=== PATIENT | male | born 1940 | race Caucasian/White ===

== ENCOUNTER → 2018-02-04 15:25 | Outpatient (REF) | payer MEDICARE, OTHER, SELFPAY | LOC: LAB 15:25 | PROVIDERS: PCP Family Medicine; Visit Provider Internal Medicine | DX: L08.9 Local infection of the skin and subcutaneous tissue, unspecified (principal) | CPT/HCPCS: 87070; 87075; 87186; 87205 ==

== ENCOUNTER → 2018-02-23 10:41 | Outpatient (CLI) | payer MEDICARE, OTHER, SELFPAY | PROVIDERS: PCP Family Medicine; Visit Provider Internal Medicine | DX: G90.09 Other idiopathic peripheral autonomic neuropathy (principal); L97.322 Non-pressure chronic ulcer of left ankle with fat layer exposed; B95.7 Other staphylococcus as the cause of diseases classified elsewhere | CPT/HCPCS: 11042 ==

== ENCOUNTER → 2018-03-08 14:41 | Outpatient (REF) | payer MEDICARE, OTHER, SELFPAY | LOC: LAB 14:41 | PROVIDERS: PCP Family Medicine; Visit Provider Internal Medicine | DX: L08.9 Local infection of the skin and subcutaneous tissue, unspecified (principal) | CPT/HCPCS: 87070; 87075; 87077; 87147; 87186; 87205 ==

== ENCOUNTER → 2018-03-08 15:43 | Outpatient (CLI) | payer MEDICARE, OTHER, SELFPAY | PROVIDERS: PCP Family Medicine; Visit Provider Internal Medicine | DX: L97.322 Non-pressure chronic ulcer of left ankle with fat layer exposed (principal); L03.116 Cellulitis of left lower limb | CPT/HCPCS: 11042 ==

== ENCOUNTER → 2018-03-16 10:38 | Outpatient (CLI) | payer MEDICARE, OTHER, SELFPAY ==
--- NOTE | 2018-03-16 | OV.WND_ITS ---
Progress Note Details Patient Name: Vin Avila Patient Number: [id number] PatientPatientDate: 03/16/2018 Clinician: Ceci Villarreal Clinician Cosigner: Enedina Porras Physician / Customs Investigator: Shankar Valdes SUBJECTIVE Chief Complaint This information was obtained from the patient Wound on left lateral ankle. Allergies codeine (Severity: Severe), Augmentin (Severity: Severe) HPI This information was obtained from the patient 03/16/18. Seen by Dr. Valdes. The patient does not report pain or significant drainage associated with the chronic left lateral malleolus non-pressure ulcer since is last visit and his wound culture grew an intermediately resistant coag negative Staph. He's taking doxycycline which is appropriate and applying topical gentamicin to which the Staph partially resistant. 03/08/18. Seen by Dr. Valdes. The patient returns today for review of this chronic left lateral malleolus non-pressure ulcer and due to concern about increased size in periulcer redness. The patient does not report pain at the site however nor increased drainage. 02/23/18. Seen by Dr. Valdes. The patient does not report pain or increased drainage associated with chronic left lateral malleolus non pressure ulcer since his last visit however his reports some malodor when changing the dressing yesterday. His most recent wound culture rate resistant coag-negative Staph and is not currently on antibiotics. 02/04/18. Seen by Dr. Valdes. The patient does not report increased pain or drainage associated with the left lateral malleolus ulcer since his last visit. 01/21/18. Seen by Dr. Valdes. The patient does not report increased pain or drainage associated with the ulcer and they're applying topical gentamicin to treat chronic wound infection as recommended. 12/28/17. Seen by Dr. Valdes. The patient was seen by Dr. May, vascular surgery , for the chronic left lateral malleolus nonpressure ulcer and associated PAD. It was felt that any intervention would likely be equivalent and so they decided to not pursue it at this time. The patient does not report increased pain or drainage associated with the ulcer and they're applying topical gentamicin to treat chronic wound infection as recommended. 12/18/17. Seen by Dr. Valdes. The patient and his report increased drainage associated with the chronic left lateral malleolus non-pressure ulcer since his last visit. He does not report pain at the site and he's also scheduled to see vascular surgery next Thursday to evaluate his left lower leg PAD that may be contributing to the refractory nature of the ulcer. 12/11/17. Seen by Dr. Valdes. The patient and his report increased drainage associated with the chronic left lateral malleolus non-pressure ulcer since his last visit. He does not report pain at the site and he's also scheduled to see vascular surgery on December 21 to evaluate his left lower leg PAD that may be contributing to the refractory nature of the ulcer. 11/27/17. Seen by Armin Milligan PA-C. The patient reports that he has an appointment with [facility] vascular clinic to address his PAD. He reports no increase in drainage from his left lateral malleolar ulcer. 11/13/17. Seen by Dr. Valdes. The patient does not report increased pain or drainage associated with her chronic left lateral malleolus nonpressure ulcer since his last visit. 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 Of note, his study from 2016 showed 3 vessel runoff bilaterally. He has a history of chronic osteomyelitis at this ulcer site and was seen by Dr. Carol Oreilly, orthopedic foot gatherer, for consideration of deep debridement but was referred for the repeat Doppler prior to considering surgery. 11/06/17. Seen by Armin Milligan PA-C. The patient reports that he has his arterial doppler scheduled in [place] for next week. He reports no increase in drainage from his left lateral ulcer. 10/29/17. Seen by Armin Milligan PA-C. The patient reports no increase in drainage from his left lateral non-pressure ulcer. He has seen Dr. Marx but has not yet obtained his arterial doppler which she has ordered. 10/22/17. Seen by Dr. Valdes. The patient doesn't report pain or significant drainage associated with chronic left lateral malleolus nonpressure ulcers since last visit. He was seen by Dr. Marx who felt that prior to considering any orthopedic intervention that further vascular workup is required noting he had an MRA in September 2016 that showed a right sided moderate internal iliac stenosis however three-vessel runoff to both lower extremities.He has also completed his course of Zyvox, noting his history of refractory chronic osteomyelitis of the malleolus and recent ulcer deterioration, that was started after his last visit and does not report ever side effects. 10/15/17. Seen by Dr. Valdes. The patient does not report increased pain or drainage associated with the chronic left lateral malleolus nonpressure ulcer since his last visit. His wound culture from last visit grew only diphtheroids. He has an appointment to see Dr. Oreilly, orthopedic foot gatherer, next afternoon for a second opinion regarding options to heal this very refractory ulcer noting its prior history of underlying chronic osteomyelitis. 10/07/17. Seen by Dr. Valdes. The patient returns from his visit to [place] and does not report significant drainage nor pain associated with the chronic left lateral malleolus nonpressure ulcer since is last visit. He completed a course of Zyvox that was started prior to his trip and was treating cellulitis associated with the ulcer. Of note, this ulcer's remained very refractory and has been treated for underlying chronic osteomyelitis in 2017 with extended courses of antibiotics, hyperbaric oxygen therapy, and negative pressure wound therapy. 09/14/17. Seen by Dr. Valdes. The patient does not report pain associated with the chronic left lateral malleolus nonpressure ulcers since his last visit. His however feels that there is increased. His however is concerned that there is increased periulcer erythema and warmth and the patient is not currently on antibiotics. 09/08/17. Seen by Armin Milligan PA-C. The patient reports no increase in drainage from his chronic left ankle ulcer. He also wishes to discuss his chronic toenail infections, which have been present form many years and have been resistant to all forms of treatment. He is concerned the chronic nail infections could be seeding infection to his chronic ulcer. 08/31/17. Seen by Armin Milligan PA-C. The patient reports increased drainage from his left malleolar ulcer. 08/20/17. Seen by Dr. Valdes. The patient does not report pain nor significant drainage associated with the chronic left lateral malleolus nonpressure ulcer since his last visit. 08/13/17. Seen by Dr. Valdes. The patient and his feel there's some increased redness around the chronic left lateral malleolus nonpressure ulcer over the past week. He also complains of a significant increase in fatigue and feel asleep at lunch yesterday. He completed his course of Zyvox that's been treating underlying chronic osteomyelitis of the left ankle and his platelets were at 120 last week. 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 08/10/17. Seen by Dr. Valdes. The patient reports some discomfort associated with the left lateral chronic malleoli nonpressure ulcers since restarting negative pressure wound therapy with a snap wound VAC last week. He continues on Zyvox for underlying chronic osteomyelitis of the left lateral malleolus and he does not report adverse side effects however his platelets are down to 120 today from 160 previous week. 08/05/17. Seen by Dr. Valdes. The patient doesn't report pain or increased drainage associated the chronic left lateral malleolus nonpressure ulcers since last visit. He completed a course of Zyvox which is treating underlying chronic osteomyelitis on Thursday and of note his platelets were within normal limits last week. 07/29/17. Seen by Dr. Valdes. The patient does not report pain or significant drainage associated with the chronic left lateral malleolus non-pressure ulcer since his last visit and he continues on Zyvox for underlying chronic osteomyelitis without reporting adverse side effects. His recently documented thrombycytopenia improved following a one week break from using Zyvox and this was restarted due to a recurrence of inflammation, drainage, and pain at the ulcer site. His platelets are 168 today. He's also completed a total of 40 hyperbaric oxygen dives that's being administered as adjunctive therapy for chronic osteomyelitis and his MRI confirms improvement in terms of bone marrow edema. 07/24/17. Seen by Dr. Valdes. The patient does not report increased pain or drainage associated with the chronic left lateral malleolus ulcer however his feels that there is been some increased redness and warmth in the jen-ulcer area. He continues on doxycycline for underlying osteomyelitis and of note was taken off of Zyvox recently due to thrombocytopenia which appears to have now nearly resolved. His most recent wound culture was unremarkable however. 07/21/17. Seen by Armin Milligan PA-C. The patient's MRI shows improving signs of osteomyelitis. The patient notes decreased drainage from his chronic left lateral malleolus ulcer. He reports no side effects from doxycycline which he is taking for his chronic osteomyelitis. 07/17/17. Seen by Dr. Valdes. The patient does not report pain nor significant drainage associated with chronic left lateral malleolus ulcer since his last visit. He continues on Zyvox for underlying osteomyelitis without reporting adverse side effects. Of note, his most recent CBC showed his platelets decreased to 106. He is also tolerating hyperbaric oxygen therapy without difficulty but does report some significant fatigue intermittently throughout the week. He has sleep apnea and feels that he is due to have his CPAP reevaluated. He has an MRI scheduled next week as well to reevaluate the ostial myelitis. 07/14/17. Seen by Armin Milligan PA-C. The patient reports decreased pain and drainage from his left lateral malleolar ulcer. His recent X-ray shows no bone lysis consistent with osteomyelitis, however neither did his plain film which was taken in March. His previous MRI and bone scan have confirmed the diagnosis of osteomyelitis. He continues on Zyvox for his osteomyelitis. 07/09/17. Seen by Dr. Valdes. The patient does not report significant pain nor drainage associated with the chronic left lateral malleolar nonpressure ulcer and he continues on Zyvox for underlying chronic osteomyelitis without reported adverse side effects. His x-ray of the ankle is unremarkable as was his CBC except for platelets of 116. 07/06/17. Seen by Armin Milligan PA-C. The patient reports no side effects from his Zyvox, which he is taking for osteomyelitis. His left lateral malleolar ulcer has had minimal drainage and the swelling and erythema are reportedly improved. 07/03/17. Seen by Dr. Valdes. The patient has been on Zyvox for the past 7 days and does not report adverse side effects. This is treating chronic osteomyelitis of the left lateral malleolus and he reports only minimal drainage from the overlying ulcer. He is also tolerating negative pressure wound therapy without difficulty. Of note, the ulcer is smaller and less deep over the past 3 weeks and the surrounding tissue is much less swollen and erythematous since starting on Zyvox. 06/26/17. Seen by Dr. Valdes. The patient does not report increasing pain nor drainage associated with a chronic left lateral malleolus nonpressure ulcer since his last visit. She is on Bactrim and is recent wound culture grew resistant species of coag-negative staph and Corynebacterium. Based on sensitivities Zyvox is the only oral medication appropriate for management of these 2 organisms. 06/19/17. Seen by Dr. Valdes. The patient does not report pain or increased drainage associated with chronic left lateral malleolus nonpressure ulcers since his last visit. He continues on doxycycline however his recent wound culture returned with a coag negative staph resistant to doxycycline. He also continues with hyperbaric oxygen therapy to treat chronic osteomyelitis without reported any adverse side effects. 06/12/17. Seen by Dr. Valdes. The patient feels that the drainage associated with the chronic left lateral malleolus ulcer has decreased over the past few days. He does not report any associated pain either. He continues on doxycycline for underlying osteomyelitis and does not report adverse side effects. He's also completed 21 was 30 dives in the hyperbaric chamber and does not report any adverse effects. Also, his wound culture from the 09 of June again grew a diptheroids specis and has been sent for further speciation and sensitivities to help direct our antibiotic therapy. 06/09/17. Seen by Dr. Valdes. The patient feels the pain associated with the left lateral malleolus ulcer and underlying chronic osteomyelitis have improved since changing his antibiotics from clindamycin to doxycycline following his last visit. He does not report adverse side effects and his recent wound culture grew only diptheroids. 06/04/17. Seen by Dr. Valdes. The patient does not report significant pain or increased drainage associated with chronic left lateral malleolus nonpressure ulcer. He continues on clindamycin for underlying osteomyelitis of the malleolus and of note his wound culture from 2 days ago shows early growth but does not report a species yet. 06/02/17. Seen by Dr. Valdes. The patient reports some aching of the left lateral malleolus over the past week. He continues on antibiotics for chronic osteomyelitis of the ankle and does not report increased drainage from the overlying nonpressure ulcer. 05/26/17. Seen by Dr. Valdes. The patient does not report significant pain and drainage associated with left lateral malleolus ulcer since his last visit. He is tolerating HBOT as well without difficulty and does not report adverse side effects from antibiotics treating chronic osteomyelitis of the underlying malleolus. 05/21/17. Seen by Armin Milligan PA-C. The patient reports increased pain in his left lateral malleolar ulcer in the past few days. He has taken APAP in the middle of the night to treat the pain, which is unusual for him. 05/14/17. Seen by Dr. Valdes. The patient does not report significant pain or drainage associated with the refractory left lateral malleolar non-pressure ulcer since his last visit and he continues on antibiotics for associated underlying chronic osteomyelitis and HBOT without reporting adverse side effects. He also does not report fevers or adverse affects of the antibiotics. 05/06/17. Seen by Armin Milligan PA-C. The patient reports no increase in pain or drainage from his left lateral malleolar ulcer since his last evaluation. He is also here for HBOT clearance and recalls previous HBOT sessions which he completed without complication. He denies any recent eye surgeries. 04/30/17. Seen by Armin Milligan PA-C. The patient reports no change in drainage or pain from his chronic left lateral malleolar ulcer since his last evaluation. He is currently on clindamycin for chronic osteomyelitis of this area, though he reports that the pharmacy had a prescription for levaquin as well waiting for him. He has been taking both for 7 days and today is his last dose of both. 04/23/17. Seen by Dr. Valdes. The patient reports moderate pain in the lateral ankle when bearing weight along with persistent drainage from the overlying non-pressure ulcer over the past week. He's not currently on antibiotics and does not report fevers or feeling unwell in general. Of note, he's been treated with extended courses of antibiotics and hyperbaric oxygen therapy for chronic osteomyelitis of lateral malleolus at the end of 2015 and into December of 2016 with near resolution of the overlying ulcer about 6 weeks ago. He then presented with an acute deterioration of the ulcer, left lower leg cellulitis, and an MRI that suggested recurrence of osteomyelitis but did no confirm due to the fact the ulcer did not extend to the bone. 04/13/17. Seen by Armin Milligan PA-C. The patient reports that when he underwent his MRI that the compression device his foot was placed in caused significant pain to the left lateral malleolar area. In addition he noted that after the MRI it was more red, swollen and draining more than it was previously. He is currently on doxycycline for his cultured MSSA ulcer infection. Of note his MRI showed some bone marrow edema in the ulcer area but this was thought to be reactive rather than evidence of osteomyelitis. 04/08/17. Seen by Armin Milligan PA-C. The patient reports continued drainage from his left lateral malleolus ulcer and his culture did not grow significant pathologic bacteria. 03/30/17. Seen by Dr. Valdes. The patient reports increased pain and drainage associated with the chronic left lateral malleolus non-pressure ulcer starting last Thursday. He has pain when bearing weight and reports noticeable shivers and chills last night. He's currently off of antibiotics and has been treated within the past few month for chronic osteomyelitis of the malleolus with and extended course of antibiotics and hyperbaric oxygen therapy. 03/20/17. Seen by Dr. Valdes. The patient feels the drainage and pain associated with the chronic left lateral malleolar neuropathic ulcer has resolved. He continues applying topical gentamicin to the ulcer based as recommended to treat a chronic wound infection. 03/06/17. Seen by Dr. Valdes. The patient feels the drainage and pain associated with the chronic left lateral malleolar neuropathic ulcer has improved since starting to apply topical gentamicin twice daily following his last visit. His culture grew a coag negative staph. 02/27/17. Seen by Dr. Valdes. The patient reports increased pain and drainage associated with the chronic left lateral malleolar non-pressure ulcer over the past few days. They stopped applying topical antibiotic as I requested a couple of weeks ago and have been changing the dressing as recommended. 02/13/17. Seen by Dr. Valdes. The patient does not report drainage or pain associated with the chronic left lateral malleolus non-pressure ulcer over the past 2 weeks. 01/30/17. Seen by Dr. Valdes. The patient does not report pain nor significant drainage associated with a chronic left lateral malleolar non-pressure ulcers since last visit. 01/16/17. Seen by Dr. Valdes. The patient does not report pain nor significant drainage associated with a chronic left lateral malleolar non-pressure ulcers since last visit. His vision glare he reported at the last visit has not yet resolved and he's going to see his opthamologist noting this is likely a side effect of his recent hyperbaric oxygen therapy. 01/02/17. Seen by Dr. Valdes. The patient does not report pain nor significant drainage associated with a chronic left lateral malleolar nonpressure ulcers since last visit. Of note, the patient reports persistent vision glare most notable at night since completion of his hyperbaric oxygen therapy. 12/19/16. Seen by Dr. Valdes. The patient does not report increased drainage associated with the chronic left lateral malleolar nonpressure ulcer since his last visit. 12/10/16. Seen with Dr. Valdes. The patient does not report significant drainage or pain associated with the chronic left lateral malleolus nonpressure ulcer over the past week.Of note, he is no longer undergoing HBOT that while being treated he was noted to have a number of elevated blood sugars over 150 and also had considerable issues with hypoglycemia during the times. He does not currently have a diagnosis of diabetes. 12/03/16. Seen by Dr. Valdes. The patient does not report pain or drainage associated with the chronic left lateral malleolar non-pressure ulcer have been minimal since his last. 11/26/16. Seen by Dr. Valdes. The patient was here for hyperbarics today however his blood sugars were stay consistently 90 and he has been dropping by as much as 70 points during his dive sessions. 11/17/16. Seen by Dr. Valdes. The patient feels the drainage and pain associated with the chronic left lateral malleolar non-pressure ulcer have been minimal since his last visit and he continues on doxycycline and Flagyl, plus receiving HBOT, for chronic osteomyelitis of the underlying malleolus. Of note, the patient reports some weakness and loss of balance following HBOT dives but does not report other specific symptoms. 11/03/16 Seen by Armin Milligan PA-C. The patient reports no increase in pain or drainage from his left lateral malleolar non-pressure ulcer with underlying chronic osteomyelitis. He has been tolerating HBOT adjunctive therapy well and has been compliant with his dual antibiotic therapy for chronic osteomyelitis without significant adverse side-effects. 10/27/16 Seen by Armin Milligan PA-C. The patient reports no increase in drainage or pain from his chronic left lateral malleolar non-pressure ulcer. 10/21/16. Seen by Dr. Valdes. The patient feels the drainage and pain associated with the chronic left lateral malleolar non-pressure ulcer has been minimal since his last visit and he continues on doxycycline and Flagyl, plus receiving HBOT, for chronic osteomyelitis of the underlying malleolus. 10/14/16 Seen by Armin Milligan PA-C. The patient reports increased erythema in the area of his left lateral malleolar wound and increased drainage as well as pain, which he reports is a stabbing, moderate pain that does not radiate and is intermittent without any identifiable exacerbating or relieving factors. 10/07/16 Seen by Armin Milligan PA-C. The patient reports no increase in drainage from his left lateral malleolar ulcer since his last evaluation. 09/30/16 Seen by Armin Milligan PA-C. The patient's wound culture returned with a coagulase negative staph spp. that is likely resistant to the cefdinir he is taking. His ulcer of the left lateral malleolus has had stable drainage and discomfort. 09/25/16. Seen by Dr. Valdes. The patient feels the pain and periwound redness associated with the left lateral malleolar ulcer and underlying chronic osteomyelitis have nearly resolved over the past week. He also continues on doxycycline without reporting adverse side effects and he has an MRA scheduled tomorrow to evaluate for clinically significant PAD in the left leg that may be inhibiting wound healing. 09/17/16. Seen by Dr. Valdes. The patient does not report pain or drainage associated with the chronic left lateral malleolar ulcer and underlying chronic osteomyelitis. He continues on cefdinir without reporting adverse side effects and is tolerating HBOT without issue. Of note, his arterial Doppler from November shows heavy calcification within the left lower leg arteries and he reports pain in the lower leg at night that improves when he hangs his foot over the bed. His SOLITARIO performed on the left leg from November however was reported as 1.2. 09/10/16. Seen by Dr. Valdes. The patient feels the pain and drainage associated with the chronic left lateral malleolar ulcer and underlying chronic osteomyelitis have decreased since changing from doxycycline to cefdinir this past week. He's also been approved for HBOT and plans to start next Thursday. 09/03/16. Seen by Dr. Valdes. The patient reports increased pain and redness in the chronic left lateral malleolar periwound area over the past 2 days. His wound culture taken on 09/01/16 was unremarkable and he continues on doxycycline for chronic osteomyelitis of the left lateral malleolus without reporting adverse side effects. He does not report fevers or feeling unwell and has bought new shoes and cut out the margin below the ankle so as to prevent trauma to the ulcer. 09/01/16. Seen by Dr. Valdes. The staff report some increased redness and skin breakdown at the left lateral malleolar chronic ulcer site. The patient does not report pain or drainage as the ulcer and his NPWT was held over the long holiday weekend. He also continues on doxycycline for chronic osteomyelitis of the underlying malleolus. 08/22/16. Seen by Dr. Valdes. The patient does not report pain or increased drainage associated with the chronic left lateral malleolar ulcer and he continues on doxycycline for the recent coag negative Staph culture and underlying chronic osteomyelitis. He does note increased redness and some skin breakdown in the periwound area however since taking off the wound vac today. He'll be traveling for the soon and will not be able to return to clinic on his usual schedule. 08/15/16. Seen by Dr. Valdes. The patient does not report pain associated with the chronic left lateral malleolar ulcer and he continues on doxycycline for the recent coag negative Staph culture from the site and underlying chronic osteomyelitis of the lateral malleolus. He's tolerated the wound vac without difficulty. 08/12/16. Seen by Dr. Valdes. The patient does not report pain associated with the chronic left lateral malleolar ulcer and he continues on doxycycline for the recent coag negative Staph culture from the site. He's tolerated the wound vac without difficulty and his recent MRI suggests underlying osteomyelitis of the lateral malleolus. 07/31/16. Seen by Dr. Valdes. The patient does not report pain associated with the chronic left lateral malleolar ulcer and he continues on doxycycline for the recent coag negative Staph culture from the site. His MRI suggests underlying osteomyelitis of the lateral malleolus also. He does not report fevers or feeling unwell nor increased drainage from the ulcer over the past week. Of note, the ulcer's been present for about 1 year and unchanged essentially for many months. 07/24/16. Seen by Dr. Valdes. The patient does not report pain or significant drainage associated with the left lateral malleolar non-pressure ulcer over the past week. His MRI is scheduled for today to evaluate for underlying osteomyelitis. His wound culture from the last visit grew coag negative Staph and he's been applying gentamicin ointment to the ulcer bed as recommended. 07/17/16. Seen by Dr. Valdes. The patient's new to our clinic and presents with a non-healing left lateral malleolar ulcer that's been present for about one year. He does not report pain or significant drainage from the site nor fevers or feeling unwell in general. He does not have a history of diabetes nor does he report symptoms of claudication or rest pain. His most recent wound culture grew 2 species of coag negative Staph however he's not been on systemic antibiotics recently. 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 Past Medical History This information was obtained from the patient Patient has a medical history of: Vertigo Hallux valgus Monoclonal gammopathy Unspecified myalgia and myositis Familial tremor Anemia Gait ataxia Depression Pleural effusion Peripheral neuropathy Anxiety Rhinitis Gastro Esoph. Reflux Disease (GERD) Coronary Artery Disease (CAD) Chronic osteomyelitis (left lateral malleolus; treated with HBOT x2) Complaints and Symptoms This information was obtained from the patient Patient complains of: General Notes: I have reviewed and concur with the Review of Systems and Past Family Social History documents completed by the clinician, I have reviewed and concur with the Wound Assessment document completed by the clinician Integumentary (Hair/Skin/Nails): Open Sore Prior Wound History: Drainage, Erythema, Pain Patient denies complaints or symptoms related to: Cardiovascular (Central): Irregular heart beat Cardiovascular (Central/Peripheral): Intermittent Claudication, Lower extremity (leg) resting pain, Lower extremity (leg) swelling Constitutional Symptoms (General Health): Chills, Fever, Marked Weight Change Ear/Nose/Mouth/Throat: Hearing Loss / Aid Gastrointestinal (GI): Nausea / Vomiting Hematologic/Lymphatic: Bleeding / Clotting Disorders, Bleeding Tendency Musculoskeletal: Deformities, Joint Swelling Neurological: Loss of Protective Sensation Prior Wound History: Bleeding, Malodor Psychiatric: Depression, Memory Loss Respiratory: Oxygen Use, Shortness of Breath OBJECTIVE Constitutional Vital signs reviewed and noted. Well developed. Alert. Clean appearing.. Height/ Length: 74 in (187.96 cm), Weight: 217.1 lbs (98.68 kgs), BMI: 27.9, Temperature: 97.8 ?F ( 36.56 ?C), Pulse: 58 bpm, Respiratory Rate: 18 breaths/min, Blood Pressure: 124/78 mmHg, Pulse Oximetry: 95 %. Ears, Nose, Mouth, and Throat: Mild hearing deficit. Respiratory: No respiratory distress. Even respirations and without use of accessory muscles.. Cardiovascular: Affected extremity exhibits no peripheral edema or cyanosis, is warm, and is well perfused. Capillary refill is less than 2 seconds. Integumentary (Hair, Skin) Mild periwound erythema with warmth. Refer to appropriate clinician wound documentation for this visit; right lower leg ulcer extends to subcut with base partially covered with pink granulation, remainder fibrin and slough. Wound #1 Left, Lateral Malleolus is a chronic Full Thickness Neuropathic Ulcer and has received a status of Not Healed. Subsequent wound encounter measurements are 0.3cm length x 0.2cm width x 0.2cm depth, with an area of 0.06 sq cm and a volume of 0.012 cubic cm. Necrotic tendon, necrotic ligament, necrotic muscle, necrotic joint, necrotic bone, necrotic capsule, and necrotic adipose are exposed. No tunneling has been noted. No sinus tract has been noted. No undermining has been noted. There is a moderate amount of seropurulent drainage noted which has no odor. The patient reports no wound pain due to the wound being insensate. The wound margin is rolled. Wound bed has No epithelialization, No eschar, Yes slough, No granulation. The periwound skin exhibited: Edema, Induration, Moist, Maceration. The periwound skin did not exhibit: Brawny Induration, Excoriation, Callus, Crepitus, Fluctuance, Friable, Rash, Dry/Scaly, Atrophie Jana, Cyanosis, Ecchymosis, Erythema, Hemosiderosis, Pallor, Rubor. The temperature of the periwound skin is WNL. Periwound skin does not exhibit signs or symptoms of infection. Local Pulse is Normal. Neurological: Cranial nerves grossly intact with symmetric function normal by informal observation.. ASSESSMENT Active Problems ICD-10 (Encounter Diagnosis) L97.322 - Non-pressure chronic ulcer of left ankle with fat layer exposed (Encounter Diagnosis) L03.116 - Cellulitis of left lower limb PROCEDURES Wound #1 Wound #1 (Neuropathic Ulcer) is located on the left, lateral malleolus. A skin/ subcutaneous tissue level surgical debridement with a total area debrided of 0.06 sq cm was performed by Shankar Valdes MD. Subcutaneous was removed along with devitalized tissue: exudate and slough. The following instrument(s) were used: curette. No anesthetic was required due to loss of sensation. A time out was conducted prior to the start of the procedure. A minimal amount of bleeding was controlled with pressure. The procedure was tolerated well with a pain level of 0 throughout and a pain level of 0 following the procedure. Post Debridement Measurements: 0.3cm length x 0.2cm width x 0.3cm depth; with an area of 0.06 sq cm and a volume of 0.018 cubic cm; PLAN Wound Orders: Wound #1 Left, Lateral Malleolus Anesthetic Topical Xylocaine to wound bed. - In clinic. Cleanser Cleanse Wound: - Normal saline in clinic. May use distilled water at home. May Shower. - Please avoid getting tap water in wound. Cover while in shower. May use cast protector. Dressings Cover and secure with: - 4x4 bordered foam. Change Dressing: - Every other day. Additional Orders: Follow-Up Appointments Return Appointment: - - One week Other information: If you develop fever, chills, increased pain, drainage, redness or swelling please call our office. If after hours, respond to the ER. Should you experience any significant changes in your wound(s) or have any questions regarding your home care instructions please contact the wound center @ [phone]. If after hours, contact your primary care physician or go to the hospital emergency room. Scribing Attestation I attest, as the nurse, that I scribed these orders for the physician. Laboratory: Bacteria identified in Wound by Culture - #1 left ankle I've reviewed the clinician's documentation and agree with the evaluation and plan as written. In addition, the patient's ulcer demonstrates evidence of non-viable devitalized tissue which will continue to benefit from sharp debridement to help promote granulation and expedite healing. Also, I've discontinue use of topical gentamicin, have repeated a wound culture and will continue another 5 days of doxycycline as the ulcer appears to have made some modest improvement in terms of the surrounding cellulitis since his last visit. Electronic Signature(s) Signed By: Date: Shankar Valdes MD 03/16/2018 14:23:23 Entered By: Shankar Valdes on 03/16/2018 12:11:19
== END ==
PROVIDERS: PCP Family Medicine; Visit Provider Internal Medicine
DX: E11.621 Type 2 diabetes mellitus with foot ulcer (principal); L97.512 Non-pressure chronic ulcer of other part of right foot with fat layer exposed
CPT/HCPCS: 11042; 87070; 87075; 87077; 87186; 87205

== ENCOUNTER → 2018-03-24 10:55 | Outpatient (CLI) | payer MEDICARE, OTHER, SELFPAY ==
--- NOTE | 2018-03-24 | OV.WND_ITS ---
Progress Note Details Patient Name: Vin Avila Patient Number: [id number] PatientPatientDate: 03/24/2018 Clinician: Rachel Bryson Clinician Cosigner: Enedina Porras Physician / Office Services Representative: Moy Milligan SUBJECTIVE Chief Complaint This information was obtained from the patient Wound on left lateral ankle. Allergies codeine (Severity: Severe), Augmentin (Severity: Severe) HPI This information was obtained from the patient 03/24/18. Seen by Armin Milligan PA-C. The patient reports no increase in pain or drainage from his left ankle ulcer. 03/16/18. Seen by Dr. Valdes. The patient does not report pain or significant drainage associated with the chronic left lateral malleolus non-pressure ulcer since is last visit and his wound culture grew an intermediately resistant coag negative Staph. He's taking doxycycline which is appropriate and applying topical gentamicin to which the Staph partially resistant. 03/08/18. Seen by Dr. Valdes. The patient returns today for review of this chronic left lateral malleolus non-pressure ulcer and due to concern about increased size in periulcer redness. The patient does not report pain at the site however nor increased drainage. 02/23/18. Seen by Dr. Valdes. The patient does not report pain or increased drainage associated with chronic left lateral malleolus non pressure ulcer since his last visit however his reports some malodor when changing the dressing yesterday. His most recent wound culture rate resistant coag-negative Staph and is not currently on antibiotics. 02/04/18. Seen by Dr. Valdes. The patient does not report increased pain or drainage associated with the left lateral malleolus ulcer since his last visit. 01/21/18. Seen by Dr. Valdes. The patient does not report increased pain or drainage associated with the ulcer and they're applying topical gentamicin to treat chronic wound infection as recommended. 12/28/17. Seen by Dr. Valdes. The patient was seen by Dr. May, vascular surgery , for the chronic left lateral malleolus nonpressure ulcer and associated PAD. It was felt that any intervention would likely be equivalent and so they decided to not pursue it at this time. The patient does not report increased pain or drainage associated with the ulcer and they're applying topical gentamicin to treat chronic wound infection as recommended. 12/18/17. Seen by Dr. Valdes. The patient and his report increased drainage associated with the chronic left lateral malleolus non-pressure ulcer since his last visit. He does not report pain at the site and he's also scheduled to see vascular surgery next Thursday to evaluate his left lower leg PAD that may be contributing to the refractory nature of the ulcer. 12/11/17. Seen by Dr. Valdes. The patient and his report increased drainage associated with the chronic left lateral malleolus non-pressure ulcer since his last visit. He does not report pain at the site and he's also scheduled to see vascular surgery on December 21 to evaluate his left lower leg PAD that may be contributing to the refractory nature of the ulcer. 11/27/17. Seen by Armin Milligan PA-C. The patient reports that he has an appointment with [facility] vascular clinic to address his PAD. He reports no increase in drainage from his left lateral malleolar ulcer. 11/13/17. Seen by Dr. Valdes. The patient does not report increased pain or drainage associated with her chronic left lateral malleolus nonpressure ulcer since his last visit. 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 Of note, his study from 2016 showed 3 vessel runoff bilaterally. He has a history of chronic osteomyelitis at this ulcer site and was seen by Dr. Carol Oreilly, orthopedic certified medical coding specialist, for consideration of deep debridement but was referred for the repeat Doppler prior to considering surgery. 11/06/17. Seen by Armin Milligan PA-C. The patient reports that he has his arterial doppler scheduled in [place] for next week. He reports no increase in drainage from his left lateral ulcer. 10/29/17. Seen by Armin Milligan PA-C. The patient reports no increase in drainage from his left lateral non-pressure ulcer. He has seen Dr. Marx but has not yet obtained his arterial doppler which she has ordered. 10/22/17. Seen by Dr. Valdes. The patient doesn't report pain or significant drainage associated with chronic left lateral malleolus nonpressure ulcers since last visit. He was seen by Dr. Marx who felt that prior to considering any orthopedic intervention that further vascular workup is required noting he had an MRA in September 2016 that showed a right sided moderate internal iliac stenosis however three-vessel runoff to both lower extremities.He has also completed his course of Zyvox, noting his history of refractory chronic osteomyelitis of the malleolus and recent ulcer deterioration, that was started after his last visit and does not report ever side effects. 10/15/17. Seen by Dr. Valdes. The patient does not report increased pain or drainage associated with the chronic left lateral malleolus nonpressure ulcer since his last visit. His wound culture from last visit grew only diphtheroids. He has an appointment to see Dr. Oreilly, orthopedic certified medical coding specialist, next afternoon for a second opinion regarding options to heal this very refractory ulcer noting its prior history of underlying chronic osteomyelitis. 10/07/17. Seen by Dr. Valdes. The patient returns from his visit to [place] and does not report significant drainage nor pain associated with the chronic left lateral malleolus nonpressure ulcer since is last visit. He completed a course of Zyvox that was started prior to his trip and was treating cellulitis associated with the ulcer. Of note, this ulcer's remained very refractory and has been treated for underlying chronic osteomyelitis in 2017 with extended courses of antibiotics, hyperbaric oxygen therapy, and negative pressure wound therapy. 09/14/17. Seen by Dr. Valdes. The patient does not report pain associated with the chronic left lateral malleolus nonpressure ulcers since his last visit. His however feels that there is increased. His however is concerned that there is increased periulcer erythema and warmth and the patient is not currently on antibiotics. 09/08/17. Seen by Armin Milligan PA-C. The patient reports no increase in drainage from his chronic left ankle ulcer. He also wishes to discuss his chronic toenail infections, which have been present form many years and have been resistant to all forms of treatment. He is concerned the chronic nail infections could be seeding infection to his chronic ulcer. 08/31/17. Seen by Armin Milligan PA-C. The patient reports increased drainage from his left malleolar ulcer. 08/20/17. Seen by Dr. Valdes. The patient does not report pain nor significant drainage associated with the chronic left lateral malleolus nonpressure ulcer since his last visit. 08/13/17. Seen by Dr. Valdes. The patient and his feel there's some increased redness around the chronic left lateral malleolus nonpressure ulcer over the past week. He also complains of a significant increase in fatigue and feel asleep at lunch yesterday. He completed his course of Zyvox that's been treating underlying chronic osteomyelitis of the left ankle and his platelets were at 120 last week. 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 08/10/17. Seen by Dr. Valdes. The patient reports some discomfort associated with the left lateral chronic malleoli nonpressure ulcers since restarting negative pressure wound therapy with a snap wound VAC last week. He continues on Zyvox for underlying chronic osteomyelitis of the left lateral malleolus and he does not report adverse side effects however his platelets are down to 120 today from 160 previous week. 08/05/17. Seen by Dr. Valdes. The patient doesn't report pain or increased drainage associated the chronic left lateral malleolus nonpressure ulcers since last visit. He completed a course of Zyvox which is treating underlying chronic osteomyelitis on Thursday and of note his platelets were within normal limits last week. 07/29/17. Seen by Dr. Valdes. The patient does not report pain or significant drainage associated with the chronic left lateral malleolus non-pressure ulcer since his last visit and he continues on Zyvox for underlying chronic osteomyelitis without reporting adverse side effects. His recently documented thrombycytopenia improved following a one week break from using Zyvox and this was restarted due to a recurrence of inflammation, drainage, and pain at the ulcer site. His platelets are 168 today. He's also completed a total of 40 hyperbaric oxygen dives that's being administered as adjunctive therapy for chronic osteomyelitis and his MRI confirms improvement in terms of bone marrow edema. 07/24/17. Seen by Dr. Valdes. The patient does not report increased pain or drainage associated with the chronic left lateral malleolus ulcer however his feels that there is been some increased redness and warmth in the jen-ulcer area. He continues on doxycycline for underlying osteomyelitis and of note was taken off of Zyvox recently due to thrombocytopenia which appears to have now nearly resolved. His most recent wound culture was unremarkable however. 07/21/17. Seen by Armin Milligan PA-C. The patient's MRI shows improving signs of osteomyelitis. The patient notes decreased drainage from his chronic left lateral malleolus ulcer. He reports no side effects from doxycycline which he is taking for his chronic osteomyelitis. 07/17/17. Seen by Dr. Valdes. The patient does not report pain nor significant drainage associated with chronic left lateral malleolus ulcer since his last visit. He continues on Zyvox for underlying osteomyelitis without reporting adverse side effects. Of note, his most recent CBC showed his platelets decreased to 106. He is also tolerating hyperbaric oxygen therapy without difficulty but does report some significant fatigue intermittently throughout the week. He has sleep apnea and feels that he is due to have his CPAP reevaluated. He has an MRI scheduled next week as well to reevaluate the ostial myelitis. 07/14/17. Seen by Armin Milligan PA-C. The patient reports decreased pain and drainage from his left lateral malleolar ulcer. His recent X-ray shows no bone lysis consistent with osteomyelitis, however neither did his plain film which was taken in March. His previous MRI and bone scan have confirmed the diagnosis of osteomyelitis. He continues on Zyvox for his osteomyelitis. 07/09/17. Seen by Dr. Valdes. The patient does not report significant pain nor drainage associated with the chronic left lateral malleolar nonpressure ulcer and he continues on Zyvox for underlying chronic osteomyelitis without reported adverse side effects. His x-ray of the ankle is unremarkable as was his CBC except for platelets of 116. 07/06/17. Seen by Armin Milligan PA-C. The patient reports no side effects from his Zyvox, which he is taking for osteomyelitis. His left lateral malleolar ulcer has had minimal drainage and the swelling and erythema are reportedly improved. 07/03/17. Seen by Dr. Valdes. The patient has been on Zyvox for the past 7 days and does not report adverse side effects. This is treating chronic osteomyelitis of the left lateral malleolus and he reports only minimal drainage from the overlying ulcer. He is also tolerating negative pressure wound therapy without difficulty. Of note, the ulcer is smaller and less deep over the past 3 weeks and the surrounding tissue is much less swollen and erythematous since starting on Zyvox. 06/26/17. Seen by Dr. Valdes. The patient does not report increasing pain nor drainage associated with a chronic left lateral malleolus nonpressure ulcer since his last visit. She is on Bactrim and is recent wound culture grew resistant species of coag-negative staph and Corynebacterium. Based on sensitivities Zyvox is the only oral medication appropriate for management of these 2 organisms. 06/19/17. Seen by Dr. Valdes. The patient does not report pain or increased drainage associated with chronic left lateral malleolus nonpressure ulcers since his last visit. He continues on doxycycline however his recent wound culture returned with a coag negative staph resistant to doxycycline. He also continues with hyperbaric oxygen therapy to treat chronic osteomyelitis without reported any adverse side effects. 06/12/17. Seen by Dr. Valdes. The patient feels that the drainage associated with the chronic left lateral malleolus ulcer has decreased over the past few days. He does not report any associated pain either. He continues on doxycycline for underlying osteomyelitis and does not report adverse side effects. He's also completed 21 was 30 dives in the hyperbaric chamber and does not report any adverse effects. Also, his wound culture from the 09 of June again grew a diptheroids specis and has been sent for further speciation and sensitivities to help direct our antibiotic therapy. 06/09/17. Seen by Dr. Valdes. The patient feels the pain associated with the left lateral malleolus ulcer and underlying chronic osteomyelitis have improved since changing his antibiotics from clindamycin to doxycycline following his last visit. He does not report adverse side effects and his recent wound culture grew only diptheroids. 06/04/17. Seen by Dr. Valdes. The patient does not report significant pain or increased drainage associated with chronic left lateral malleolus nonpressure ulcer. He continues on clindamycin for underlying osteomyelitis of the malleolus and of note his wound culture from 2 days ago shows early growth but does not report a species yet. 06/02/17. Seen by Dr. Valdes. The patient reports some aching of the left lateral malleolus over the past week. He continues on antibiotics for chronic osteomyelitis of the ankle and does not report increased drainage from the overlying nonpressure ulcer. 05/26/17. Seen by Dr. Valdes. The patient does not report significant pain and drainage associated with left lateral malleolus ulcer since his last visit. He is tolerating HBOT as well without difficulty and does not report adverse side effects from antibiotics treating chronic osteomyelitis of the underlying malleolus. 05/21/17. Seen by Armin Milligan PA-C. The patient reports increased pain in his left lateral malleolar ulcer in the past few days. He has taken APAP in the middle of the night to treat the pain, which is unusual for him. 05/14/17. Seen by Dr. Valdes. The patient does not report significant pain or drainage associated with the refractory left lateral malleolar non-pressure ulcer since his last visit and he continues on antibiotics for associated underlying chronic osteomyelitis and HBOT without reporting adverse side effects. He also does not report fevers or adverse affects of the antibiotics. 05/06/17. Seen by Armin Milligan PA-C. The patient reports no increase in pain or drainage from his left lateral malleolar ulcer since his last evaluation. He is also here for HBOT clearance and recalls previous HBOT sessions which he completed without complication. He denies any recent eye surgeries. 04/30/17. Seen by Armin Milligan PA-C. The patient reports no change in drainage or pain from his chronic left lateral malleolar ulcer since his last evaluation. He is currently on clindamycin for chronic osteomyelitis of this area, though he reports that the pharmacy had a prescription for levaquin as well waiting for him. He has been taking both for 7 days and today is his last dose of both. 04/23/17. Seen by Dr. Valdes. The patient reports moderate pain in the lateral ankle when bearing weight along with persistent drainage from the overlying non-pressure ulcer over the past week. He's not currently on antibiotics and does not report fevers or feeling unwell in general. Of note, he's been treated with extended courses of antibiotics and hyperbaric oxygen therapy for chronic osteomyelitis of lateral malleolus at the end of 2015 and into December of 2016 with near resolution of the overlying ulcer about 6 weeks ago. He then presented with an acute deterioration of the ulcer, left lower leg cellulitis, and an MRI that suggested recurrence of osteomyelitis but did no confirm due to the fact the ulcer did not extend to the bone. 04/13/17. Seen by Armin Milligan PA-C. The patient reports that when he underwent his MRI that the compression device his foot was placed in caused significant pain to the left lateral malleolar area. In addition he noted that after the MRI it was more red, swollen and draining more than it was previously. He is currently on doxycycline for his cultured MSSA ulcer infection. Of note his MRI showed some bone marrow edema in the ulcer area but this was thought to be reactive rather than evidence of osteomyelitis. 04/08/17. Seen by Armin Milligan PA-C. The patient reports continued drainage from his left lateral malleolus ulcer and his culture did not grow significant pathologic bacteria. 03/30/17. Seen by Dr. Valdes. The patient reports increased pain and drainage associated with the chronic left lateral malleolus non-pressure ulcer starting last Thursday. He has pain when bearing weight and reports noticeable shivers and chills last night. He's currently off of antibiotics and has been treated within the past few month for chronic osteomyelitis of the malleolus with and extended course of antibiotics and hyperbaric oxygen therapy. 03/20/17. Seen by Dr. Valdes. The patient feels the drainage and pain associated with the chronic left lateral malleolar neuropathic ulcer has resolved. He continues applying topical gentamicin to the ulcer based as recommended to treat a chronic wound infection. 03/06/17. Seen by Dr. Valdes. The patient feels the drainage and pain associated with the chronic left lateral malleolar neuropathic ulcer has improved since starting to apply topical gentamicin twice daily following his last visit. His culture grew a coag negative staph. 02/27/17. Seen by Dr. Valdes. The patient reports increased pain and drainage associated with the chronic left lateral malleolar non-pressure ulcer over the past few days. They stopped applying topical antibiotic as I requested a couple of weeks ago and have been changing the dressing as recommended. 02/13/17. Seen by Dr. Valdes. The patient does not report drainage or pain associated with the chronic left lateral malleolus non-pressure ulcer over the past 2 weeks. 01/30/17. Seen by Dr. Valdes. The patient does not report pain nor significant drainage associated with a chronic left lateral malleolar non-pressure ulcers since last visit. 01/16/17. Seen by Dr. Valdes. The patient does not report pain nor significant drainage associated with a chronic left lateral malleolar non-pressure ulcers since last visit. His vision glare he reported at the last visit has not yet resolved and he's going to see his opthamologist noting this is likely a side effect of his recent hyperbaric oxygen therapy. 01/02/17. Seen by Dr. Valdes. The patient does not report pain nor significant drainage associated with a chronic left lateral malleolar nonpressure ulcers since last visit. Of note, the patient reports persistent vision glare most notable at night since completion of his hyperbaric oxygen therapy. 12/19/16. Seen by Dr. Vadles. The patient does not report increased drainage associated with the chronic left lateral malleolar nonpressure ulcer since his last visit. 12/10/16. Seen with Dr. Valdes. The patient does not report significant drainage or pain associated with the chronic left lateral malleolus nonpressure ulcer over the past week.Of note, he is no longer undergoing HBOT that while being treated he was noted to have a number of elevated blood sugars over 150 and also had considerable issues with hypoglycemia during the times. He does not currently have a diagnosis of diabetes. 12/03/16. Seen by Dr. Valdes. The patient does not report pain or drainage associated with the chronic left lateral malleolar non-pressure ulcer have been minimal since his last. 11/26/16. Seen by Dr. Valdes. The patient was here for hyperbarics today however his blood sugars were stay consistently 90 and he has been dropping by as much as 70 points during his dive sessions. 11/17/16. Seen by Dr. Valdes. The patient feels the drainage and pain associated with the chronic left lateral malleolar non-pressure ulcer have been minimal since his last visit and he continues on doxycycline and Flagyl, plus receiving HBOT, for chronic osteomyelitis of the underlying malleolus. Of note, the patient reports some weakness and loss of balance following HBOT dives but does not report other specific symptoms. 11/03/16 Seen by Armin Milligan PA-C. The patient reports no increase in pain or drainage from his left lateral malleolar non-pressure ulcer with underlying chronic osteomyelitis. He has been tolerating HBOT adjunctive therapy well and has been compliant with his dual antibiotic therapy for chronic osteomyelitis without significant adverse side-effects. 10/27/16 Seen by Armin Milligan PA-C. The patient reports no increase in drainage or pain from his chronic left lateral malleolar non-pressure ulcer. 10/21/16. Seen by Dr. Valdes. The patient feels the drainage and pain associated with the chronic left lateral malleolar non-pressure ulcer has been minimal since his last visit and he continues on doxycycline and Flagyl, plus receiving HBOT, for chronic osteomyelitis of the underlying malleolus. 10/14/16 Seen by Armin Milligan PA-C. The patient reports increased erythema in the area of his left lateral malleolar wound and increased drainage as well as pain, which he reports is a stabbing, moderate pain that does not radiate and is intermittent without any identifiable exacerbating or relieving factors. 10/07/16 Seen by Armin Milligan PA-C. The patient reports no increase in drainage from his left lateral malleolar ulcer since his last evaluation. 09/30/16 Seen by Armin Milligan PA-C. The patient's wound culture returned with a coagulase negative staph spp. that is likely resistant to the cefdinir he is taking. His ulcer of the left lateral malleolus has had stable drainage and discomfort. 09/25/16. Seen by Dr. Valdes. The patient feels the pain and periwound redness associated with the left lateral malleolar ulcer and underlying chronic osteomyelitis have nearly resolved over the past week. He also continues on doxycycline without reporting adverse side effects and he has an MRA scheduled tomorrow to evaluate for clinically significant PAD in the left leg that may be inhibiting wound healing. 09/17/16. Seen by Dr. Valdes. The patient does not report pain or drainage associated with the chronic left lateral malleolar ulcer and underlying chronic osteomyelitis. He continues on cefdinir without reporting adverse side effects and is tolerating HBOT without issue. Of note, his arterial Doppler from November shows heavy calcification within the left lower leg arteries and he reports pain in the lower leg at night that improves when he hangs his foot over the bed. His SOLITARIO performed on the left leg from November however was reported as 1.2. 09/10/16. Seen by Dr. Valdes. The patient feels the pain and drainage associated with the chronic left lateral malleolar ulcer and underlying chronic osteomyelitis have decreased since changing from doxycycline to cefdinir this past week. He's also been approved for HBOT and plans to start next Thursday. 09/03/16. Seen by Dr. Valdes. The patient reports increased pain and redness in the chronic left lateral malleolar periwound area over the past 2 days. His wound culture taken on 09/01/16 was unremarkable and he continues on doxycycline for chronic osteomyelitis of the left lateral malleolus without reporting adverse side effects. He does not report fevers or feeling unwell and has bought new shoes and cut out the margin below the ankle so as to prevent trauma to the ulcer. 09/01/16. Seen by Dr. Valdes. The staff report some increased redness and skin breakdown at the left lateral malleolar chronic ulcer site. The patient does not report pain or drainage as the ulcer and his NPWT was held over the long holiday weekend. He also continues on doxycycline for chronic osteomyelitis of the underlying malleolus. 08/22/16. Seen by Dr. Valdes. The patient does not report pain or increased drainage associated with the chronic left lateral malleolar ulcer and he continues on doxycycline for the recent coag negative Staph culture and underlying chronic osteomyelitis. He does note increased redness and some skin breakdown in the periwound area however since taking off the wound vac today. He'll be traveling for the soon and will not be able to return to clinic on his usual schedule. 08/15/16. Seen by Dr. Valdes. The patient does not report pain associated with the chronic left lateral malleolar ulcer and he continues on doxycycline for the recent coag negative Staph culture from the site and underlying chronic osteomyelitis of the lateral malleolus. He's tolerated the wound vac without difficulty. 08/12/16. Seen by Dr. Valdes. The patient does not report pain associated with the chronic left lateral malleolar ulcer and he continues on doxycycline for the recent coag negative Staph culture from the site. He's tolerated the wound vac without difficulty and his recent MRI suggests underlying osteomyelitis of the lateral malleolus. 07/31/16. Seen by Dr. Valdes. The patient does not report pain associated with the chronic left lateral malleolar ulcer and he continues on doxycycline for the recent coag negative Staph culture from the site. His MRI suggests underlying osteomyelitis of the lateral malleolus also. He does not report fevers or feeling unwell nor increased drainage from the ulcer over the past week. Of note, the ulcer's been present for about 1 year and unchanged essentially for many months. 07/24/16. Seen by Dr. Valdes. The patient does not report pain or significant drainage associated with the left lateral malleolar non-pressure ulcer over the past week. His MRI is scheduled for today to evaluate for underlying osteomyelitis. His wound culture from the last visit grew coag negative Staph and he's been applying gentamicin ointment to the ulcer bed as recommended. 07/17/16. Seen by Dr. Valdes. The patient's new to our clinic and presents with a non-healing left lateral malleolar ulcer that's been present for about one year. He does not report pain or significant drainage from the site nor fevers or feeling unwell in general. He does not have a history of diabetes nor does he report symptoms of claudication or rest pain. His most recent wound culture grew 2 species of coag negative Staph however he's not been on systemic antibiotics recently. 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 Family History This information was obtained from the patient Cancer - No History, Diabetes - No History, Heart Disease - Mother, Father, Hereditary Spherocytosis - No History, Hypertension - No History, Kidney Disease - No History, Lung Disease - No History, Mental Illness - No History, Non-contributory - No History , None - No History, Other - No History, Seizures - No History, Stroke - No History, Thyroid Problems - No History, Tuberculosis - No History Social History This information was obtained from the patient Never smoker, Caffeine Use - 1-2 sodas daily, Children - 3 children, Lives in - Private Home, Marital Status - , 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 Reflux Disease (GERD) Coronary Artery Disease (CAD) Chronic osteomyelitis (left lateral malleolus; treated with HBOT x2) Complaints and Symptoms This information was obtained from the patient Patient complains of: General Notes: I have reviewed and concur with the Review of Systems and Past Family Social History documents completed by the clinician, I have reviewed and concur with the Wound Assessment document completed by the clinician Integumentary (Hair/Skin/Nails): Open Sore Prior Wound History: Drainage, Erythema, Pain Patient denies complaints or symptoms related to: Cardiovascular (Central): Irregular heart beat Cardiovascular (Central/Peripheral): Intermittent Claudication, Lower extremity (leg) resting pain, Lower extremity (leg) swelling Constitutional Symptoms (General Health): Chills, Fever, Marked Weight Change Ear/Nose/Mouth/Throat: Hearing Loss / Aid Gastrointestinal (GI): Nausea / Vomiting Hematologic/Lymphatic: Bleeding / Clotting Disorders, Bleeding Tendency Musculoskeletal: Deformities, Joint Swelling Neurological: Loss of Protective Sensation Prior Wound History: Bleeding, Malodor Psychiatric: Depression, Memory Loss Respiratory: Oxygen Use, Shortness of Breath OBJECTIVE Constitutional Vital signs reviewed and noted. Well developed, lucid, and in no acute distress. . Height/Length: 74 in (187.96 cm), Weight: 216 lbs (98.18 kgs), BMI: 27.7, Temperature: 98.2 ?F (36.78 ?C), Pulse: 62 bpm, Respiratory Rate: 16 breaths/min, Blood Pressure: 134/67 mmHg, Pulse Oximetry: 95 %. Ears, Nose, Mouth, and Throat: Grossly intact. Respiratory: No respiratory distress. Even respirations and without use of accessory muscles.. Integumentary (Hair, Skin) Refer to appropriate clinician wound documentation for this visit; ulcer extends to subcutaneous fat layer. . Wound #1 Left, Lateral Malleolus is a chronic Full Thickness Neuropathic Ulcer and has received a status of Not Healed. Subsequent wound encounter measurements are 0.2cm length x 0.2cm width x 0.3cm depth, with an area of 0.04 sq cm and a volume of 0.012 cubic cm. No tunneling has been noted. No sinus tract has been noted. No undermining has been noted. There is a moderate amount of serous drainage noted which has no odor. The patient reports no wound pain due to the wound being insensate. The wound margin is rolled. Wound bed has No epithelialization, No eschar, Yes slough, No granulation. The periwound skin exhibited: Edema, Induration, Moist. The periwound skin did not exhibit: Brawny Induration, Excoriation, Callus, Crepitus, Fluctuance, Friable, Rash, Dry /Scaly, Maceration, Atrophie Jana, Cyanosis, Ecchymosis, Erythema, Hemosiderosis, Pallor, Rubor. The temperature of the periwound skin is WNL. Periwound skin does not exhibit signs or symptoms of infection. Local Pulse is Normal. Psychiatric: Judgement and insight: Normal affect with normal thought pattern. Alert and oriented 3/3. Memory grossly intact.. Normal affect. Mood appropriate.. ASSESSMENT Active Problems ICD-10 (Encounter Diagnosis) L97.322 - Non-pressure chronic ulcer of left ankle with fat layer exposed (Encounter Diagnosis) L03.116 - Cellulitis of left lower limb PROCEDURES Wound #1 Wound #1 (Neuropathic Ulcer) is located on the left, lateral malleolus. A skin/ subcutaneous tissue level surgical debridement with a total area debrided of 0.09 sq cm was performed by Moy Milligan PA. Subcutaneous was removed along with devitalized tissue: slough. The following instrument(s) were used: curette. No anesthetic was required due to loss of sensation. A time out was conducted prior to the start of the procedure. A minimal amount of bleeding was controlled with n/a. The procedure was tolerated well with a loss of sensation throughout and a loss of sensation following the procedure. Post Debridement Measurements: 0.3cm length x 0.3cm width x 0.3cm depth; with an area of 0.09 sq cm and a volume of 0.027 cubic cm; Additional Information Muscle fascia or bone removed and sent to pathology?: No PLAN Wound Orders: Wound #1 Left, Lateral Malleolus Anesthetic Topical Xylocaine to wound bed. - In clinic. Cleanser Cleanse Wound: - Normal saline in clinic. May use distilled water at home. May Shower. - Please avoid getting tap water in wound. Cover while in shower. May use cast protector. Dressings Cover and secure with: - Bordered foam or equivalent. Change Dressing: - Twice a week. Additional Orders: Follow-Up Appointments Return Appointment: - - Three weeks. Other information: If you develop fever, chills, increased pain, drainage, redness or swelling please call our office. If after hours, respond to the ER. Should you experience any significant changes in your wound(s) or have any questions regarding your home care instructions please contact the wound center @ [phone]. If after hours, contact your primary care physician or go to the hospital emergency room. Scribing Attestation I attest, as the nurse, that I scribed these orders for the physician. I've reviewed the clinician's documentation and agree with the evaluation and plan as written. In addition the patient's ulcer demonstrates evidence of non-viable devitalized tissue which benefits from sharp debridement. Electronic Signature(s) Signed By: Date: Armin Milligan 03/28/2018 16:56:38 Entered By: Armin Milligan on 03/28/2018 15:45:47
== END ==
PROVIDERS: PCP Family Medicine; Visit Provider Physician Assistant
DX: L97.322 Non-pressure chronic ulcer of left ankle with fat layer exposed (principal)
CPT/HCPCS: 11042

== ENCOUNTER → 2018-04-14 13:26 | Outpatient (CLI) | payer MEDICARE, OTHER, SELFPAY ==
--- NOTE | 2018-04-14 | OV.WND_ITS ---
Progress Note Details Patient Name: Vin Avila Patient Number: [id number] PatientPatientDate: 04/14/2018 Clinician: Rachel Bryson Clinician Cosigner: Enedina Porras Physician / [place] Picker: Shankar Valdes SUBJECTIVE Chief Complaint This information was obtained from the patient Wound on left lateral ankle. Allergies codeine (Severity: Severe), Augmentin (Severity: Severe) HPI This information was obtained from the patient 04/14/18. Seen by Dr. Valdes. The patient does not report pain or significant drainage associated with the chronic left lateral malleolus non-pressure ulcer since is last visit. 03/24/18. Seen by Armin Milligan PA-C. The patient reports no increase in pain or drainage from his left ankle ulcer. 03/16/18. Seen by Dr. Valdes. The patient does not report pain or significant drainage associated with the chronic left lateral malleolus non-pressure ulcer since is last visit and his wound culture grew an intermediately resistant coag negative Staph. He's taking doxycycline which is appropriate and applying topical gentamicin to which the Staph partially resistant. 03/08/18. Seen by Dr. Valdes. The patient returns today for review of this chronic left lateral malleolus non-pressure ulcer and due to concern about increased size in periulcer redness. The patient does not report pain at the site however nor increased drainage. 02/23/18. Seen by Dr. Valdes. The patient does not report pain or increased drainage associated with chronic left lateral malleolus non pressure ulcer since his last visit however his reports some malodor when changing the dressing yesterday. His most recent wound culture rate resistant coag-negative Staph and is not currently on antibiotics. 02/04/18. Seen by Dr. Valdes. The patient does not report increased pain or drainage associated with the left lateral malleolus ulcer since his last visit. 01/21/18. Seen by Dr. Valdes. The patient does not report increased pain or drainage associated with the ulcer and they're applying topical gentamicin to treat chronic wound infection as recommended. 12/28/17. Seen by Dr. Valdes. The patient was seen by Dr. May, vascular surgery , for the chronic left lateral malleolus nonpressure ulcer and associated PAD. It was felt that any intervention would likely be equivalent and so they decided to not pursue it at this time. The patient does not report increased pain or drainage associated with the ulcer and they're applying topical gentamicin to treat chronic wound infection as recommended. 12/18/17. Seen by Dr. Valdes. The patient and his report increased drainage associated with the chronic left lateral malleolus non-pressure ulcer since his last visit. He does not report pain at the site and he's also scheduled to see vascular surgery next Thursday to evaluate his left lower leg PAD that may be contributing to the refractory nature of the ulcer. 12/11/17. Seen by Dr. Valdes. The patient and his report increased drainage associated with the chronic left lateral malleolus non-pressure ulcer since his last visit. He does not report pain at the site and he's also scheduled to see vascular surgery on December 21 to evaluate his left lower leg PAD that may be contributing to the refractory nature of the ulcer. 11/27/17. Seen by Armin Milligan PA-C. The patient reports that he has an appointment with [facility] vascular clinic to address his PAD. He reports no increase in drainage from his left lateral malleolar ulcer. 11/13/17. Seen by Dr. Valdes. The patient does not report increased pain or drainage associated with her chronic left lateral malleolus nonpressure ulcer since his last visit. 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 Of note, his study from 2016 showed 3 vessel runoff bilaterally. He has a history of chronic osteomyelitis at this ulcer site and was seen by Dr. Carol Oreilly, orthopedic complaint specialist, for consideration of deep debridement but was referred for the repeat Doppler prior to considering surgery. 11/06/17. Seen by Armin Milligan PA-C. The patient reports that he has his arterial doppler scheduled in [place] for next week. He reports no increase in drainage from his left lateral ulcer. 10/29/17. Seen by Armin Milligan PA-C. The patient reports no increase in drainage from his left lateral non-pressure ulcer. He has seen Dr. Marx but has not yet obtained his arterial doppler which she has ordered. 10/22/17. Seen by Dr. Valdes. The patient doesn't report pain or significant drainage associated with chronic left lateral malleolus nonpressure ulcers since last visit. He was seen by Dr. Marx who felt that prior to considering any orthopedic intervention that further vascular workup is required noting he had an MRA in September 2016 that showed a right sided moderate internal iliac stenosis however three-vessel runoff to both lower extremities.He has also completed his course of Zyvox, noting his history of refractory chronic osteomyelitis of the malleolus and recent ulcer deterioration, that was started after his last visit and does not report ever side effects. 10/15/17. Seen by Dr. Valdes. The patient does not report increased pain or drainage associated with the chronic left lateral malleolus nonpressure ulcer since his last visit. His wound culture from last visit grew only diphtheroids. He has an appointment to see Dr. Oreilly, orthopedic complaint specialist, next afternoon for a second opinion regarding options to heal this very refractory ulcer noting its prior history of underlying chronic osteomyelitis. 10/07/17. Seen by Dr. Valdes. The patient returns from his visit to [place] and does not report significant drainage nor pain associated with the chronic left lateral malleolus nonpressure ulcer since is last visit. He completed a course of Zyvox that was started prior to his trip and was treating cellulitis associated with the ulcer. Of note, this ulcer's remained very refractory and has been treated for underlying chronic osteomyelitis in 2017 with extended courses of antibiotics, hyperbaric oxygen therapy, and negative pressure wound therapy. 09/14/17. Seen by Dr. Valdes. The patient does not report pain associated with the chronic left lateral malleolus nonpressure ulcers since his last visit. His however feels that there is increased. His however is concerned that there is increased periulcer erythema and warmth and the patient is not currently on antibiotics. 09/08/17. Seen by Armin Milligan PA-C. The patient reports no increase in drainage from his chronic left ankle ulcer. He also wishes to discuss his chronic toenail infections, which have been present form many years and have been resistant to all forms of treatment. He is concerned the chronic nail infections could be seeding infection to his chronic ulcer. 08/31/17. Seen by Armin Milligan PA-C. The patient reports increased drainage from his left malleolar ulcer. 08/20/17. Seen by Dr. Valdes. The patient does not report pain nor significant drainage associated with the chronic left lateral malleolus nonpressure ulcer since his last visit. 08/13/17. Seen by Dr. Valdes. The patient and his feel there's some increased redness around the chronic left lateral malleolus nonpressure ulcer over the past week. He also complains of a significant increase in fatigue and feel asleep at lunch yesterday. He completed his course of Zyvox that's been treating underlying chronic osteomyelitis of the left ankle and his platelets were at 120 last week. 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 08/10/17. Seen by Dr. Valdes. The patient reports some discomfort associated with the left lateral chronic malleoli nonpressure ulcers since restarting negative pressure wound therapy with a snap wound VAC last week. He continues on Zyvox for underlying chronic osteomyelitis of the left lateral malleolus and he does not report adverse side effects however his platelets are down to 120 today from 160 previous week. 08/05/17. Seen by Dr. Valdes. The patient doesn't report pain or increased drainage associated the chronic left lateral malleolus nonpressure ulcers since last visit. He completed a course of Zyvox which is treating underlying chronic osteomyelitis on Thursday and of note his platelets were within normal limits last week. 07/29/17. Seen by Dr. Valdes. The patient does not report pain or significant drainage associated with the chronic left lateral malleolus non-pressure ulcer since his last visit and he continues on Zyvox for underlying chronic osteomyelitis without reporting adverse side effects. His recently documented thrombycytopenia improved following a one week break from using Zyvox and this was restarted due to a recurrence of inflammation, drainage, and pain at the ulcer site. His platelets are 168 today. He's also completed a total of 40 hyperbaric oxygen dives that's being administered as adjunctive therapy for chronic osteomyelitis and his MRI confirms improvement in terms of bone marrow edema. 07/24/17. Seen by Dr. Valeds. The patient does not report increased pain or drainage associated with the chronic left lateral malleolus ulcer however his feels that there is been some increased redness and warmth in the jen-ulcer area. He continues on doxycycline for underlying osteomyelitis and of note was taken off of Zyvox recently due to thrombocytopenia which appears to have now nearly resolved. His most recent wound culture was unremarkable however. 07/21/17. Seen by Armin Milligan PA-C. The patient's MRI shows improving signs of osteomyelitis. The patient notes decreased drainage from his chronic left lateral malleolus ulcer. He reports no side effects from doxycycline which he is taking for his chronic osteomyelitis. 07/17/17. Seen by Dr. Valdes. The patient does not report pain nor significant drainage associated with chronic left lateral malleolus ulcer since his last visit. He continues on Zyvox for underlying osteomyelitis without reporting adverse side effects. Of note, his most recent CBC showed his platelets decreased to 106. He is also tolerating hyperbaric oxygen therapy without difficulty but does report some significant fatigue intermittently throughout the week. He has sleep apnea and feels that he is due to have his CPAP reevaluated. He has an MRI scheduled next week as well to reevaluate the ostial myelitis. 07/14/17. Seen by Armin Milligan PA-C. The patient reports decreased pain and drainage from his left lateral malleolar ulcer. His recent X-ray shows no bone lysis consistent with osteomyelitis, however neither did his plain film which was taken in March. His previous MRI and bone scan have confirmed the diagnosis of osteomyelitis. He continues on Zyvox for his osteomyelitis. 07/09/17. Seen by Dr. Valdes. The patient does not report significant pain nor drainage associated with the chronic left lateral malleolar nonpressure ulcer and he continues on Zyvox for underlying chronic osteomyelitis without reported adverse side effects. His x-ray of the ankle is unremarkable as was his CBC except for platelets of 116. 07/06/17. Seen by Armin Milligan PA-C. The patient reports no side effects from his Zyvox, which he is taking for osteomyelitis. His left lateral malleolar ulcer has had minimal drainage and the swelling and erythema are reportedly improved. 07/03/17. Seen by Dr. Valdes. The patient has been on Zyvox for the past 7 days and does not report adverse side effects. This is treating chronic osteomyelitis of the left lateral malleolus and he reports only minimal drainage from the overlying ulcer. He is also tolerating negative pressure wound therapy without difficulty. Of note, the ulcer is smaller and less deep over the past 3 weeks and the surrounding tissue is much less swollen and erythematous since starting on Zyvox. 06/26/17. Seen by Dr. Valdes. The patient does not report increasing pain nor drainage associated with a chronic left lateral malleolus nonpressure ulcer since his last visit. She is on Bactrim and is recent wound culture grew resistant species of coag-negative staph and Corynebacterium. Based on sensitivities Zyvox is the only oral medication appropriate for management of these 2 organisms. 06/19/17. Seen by Dr. Valdes. The patient does not report pain or increased drainage associated with chronic left lateral malleolus nonpressure ulcers since his last visit. He continues on doxycycline however his recent wound culture returned with a coag negative staph resistant to doxycycline. He also continues with hyperbaric oxygen therapy to treat chronic osteomyelitis without reported any adverse side effects. 06/12/17. Seen by Dr. Valdes. The patient feels that the drainage associated with the chronic left lateral malleolus ulcer has decreased over the past few days. He does not report any associated pain either. He continues on doxycycline for underlying osteomyelitis and does not report adverse side effects. He's also completed 21 was 30 dives in the hyperbaric chamber and does not report any adverse effects. Also, his wound culture from the 09 of June again grew a diptheroids specis and has been sent for further speciation and sensitivities to help direct our antibiotic therapy. 06/09/17. Seen by Dr. Valdes. The patient feels the pain associated with the left lateral malleolus ulcer and underlying chronic osteomyelitis have improved since changing his antibiotics from clindamycin to doxycycline following his last visit. He does not report adverse side effects and his recent wound culture grew only diptheroids. 06/04/17. Seen by Dr. Valdes. The patient does not report significant pain or increased drainage associated with chronic left lateral malleolus nonpressure ulcer. He continues on clindamycin for underlying osteomyelitis of the malleolus and of note his wound culture from 2 days ago shows early growth but does not report a species yet. 06/02/17. Seen by Dr. Valdes. The patient reports some aching of the left lateral malleolus over the past week. He continues on antibiotics for chronic osteomyelitis of the ankle and does not report increased drainage from the overlying nonpressure ulcer. 05/26/17. Seen by Dr. Valdes. The patient does not report significant pain and drainage associated with left lateral malleolus ulcer since his last visit. He is tolerating HBOT as well without difficulty and does not report adverse side effects from antibiotics treating chronic osteomyelitis of the underlying malleolus. 05/21/17. Seen by Armin Milligan PA-C. The patient reports increased pain in his left lateral malleolar ulcer in the past few days. He has taken APAP in the middle of the night to treat the pain, which is unusual for him. 05/14/17. Seen by Dr. Valdes. The patient does not report significant pain or drainage associated with the refractory left lateral malleolar non-pressure ulcer since his last visit and he continues on antibiotics for associated underlying chronic osteomyelitis and HBOT without reporting adverse side effects. He also does not report fevers or adverse affects of the antibiotics. 05/06/17. Seen by Armin Milligan PA-C. The patient reports no increase in pain or drainage from his left lateral malleolar ulcer since his last evaluation. He is also here for HBOT clearance and recalls previous HBOT sessions which he completed without complication. He denies any recent eye surgeries. 04/30/17. Seen by Armin Milligan PA-C. The patient reports no change in drainage or pain from his chronic left lateral malleolar ulcer since his last evaluation. He is currently on clindamycin for chronic osteomyelitis of this area, though he reports that the pharmacy had a prescription for levaquin as well waiting for him. He has been taking both for 7 days and today is his last dose of both. 04/23/17. Seen by Dr. Valdes. The patient reports moderate pain in the lateral ankle when bearing weight along with persistent drainage from the overlying non-pressure ulcer over the past week. He's not currently on antibiotics and does not report fevers or feeling unwell in general. Of note, he's been treated with extended courses of antibiotics and hyperbaric oxygen therapy for chronic osteomyelitis of lateral malleolus at the end of 2015 and into December of 2016 with near resolution of the overlying ulcer about 6 weeks ago. He then presented with an acute deterioration of the ulcer, left lower leg cellulitis, and an MRI that suggested recurrence of osteomyelitis but did no confirm due to the fact the ulcer did not extend to the bone. 04/13/17. Seen by Armin Milligan PA-C. The patient reports that when he underwent his MRI that the compression device his foot was placed in caused significant pain to the left lateral malleolar area. In addition he noted that after the MRI it was more red, swollen and draining more than it was previously. He is currently on doxycycline for his cultured MSSA ulcer infection. Of note his MRI showed some bone marrow edema in the ulcer area but this was thought to be reactive rather than evidence of osteomyelitis. 04/08/17. Seen by Armin Milligan PA-C. The patient reports continued drainage from his left lateral malleolus ulcer and his culture did not grow significant pathologic bacteria. 03/30/17. Seen by Dr. Valdes. The patient reports increased pain and drainage associated with the chronic left lateral malleolus non-pressure ulcer starting last Thursday. He has pain when bearing weight and reports noticeable shivers and chills last night. He's currently off of antibiotics and has been treated within the past few month for chronic osteomyelitis of the malleolus with and extended course of antibiotics and hyperbaric oxygen therapy. 03/20/17. Seen by Dr. Valdes. The patient feels the drainage and pain associated with the chronic left lateral malleolar neuropathic ulcer has resolved. He continues applying topical gentamicin to the ulcer based as recommended to treat a chronic wound infection. 03/06/17. Seen by Dr. Valdes. The patient feels the drainage and pain associated with the chronic left lateral malleolar neuropathic ulcer has improved since starting to apply topical gentamicin twice daily following his last visit. His culture grew a coag negative staph. 02/27/17. Seen by Dr. Valdes. The patient reports increased pain and drainage associated with the chronic left lateral malleolar non-pressure ulcer over the past few days. They stopped applying topical antibiotic as I requested a couple of weeks ago and have been changing the dressing as recommended. 02/13/17. Seen by Dr. Valdes. The patient does not report drainage or pain associated with the chronic left lateral malleolus non-pressure ulcer over the past 2 weeks. 01/30/17. Seen by Dr. Valdes. The patient does not report pain nor significant drainage associated with a chronic left lateral malleolar non-pressure ulcers since last visit. 01/16/17. Seen by Dr. Valdes. The patient does not report pain nor significant drainage associated with a chronic left lateral malleolar non-pressure ulcers since last visit. His vision glare he reported at the last visit has not yet resolved and he's going to see his opthamologist noting this is likely a side effect of his recent hyperbaric oxygen therapy. 01/02/17. Seen by Dr. Valdes. The patient does not report pain nor significant drainage associated with a chronic left lateral malleolar nonpressure ulcers since last visit. Of note, the patient reports persistent vision glare most notable at night since completion of his hyperbaric oxygen therapy. 12/19/16. Seen by Dr. Valdes. The patient does not report increased drainage associated with the chronic left lateral malleolar nonpressure ulcer since his last visit. 12/10/16. Seen with Dr. Valdes. The patient does not report significant drainage or pain associated with the chronic left lateral malleolus nonpressure ulcer over the past week.Of note, he is no longer undergoing HBOT that while being treated he was noted to have a number of elevated blood sugars over 150 and also had considerable issues with hypoglycemia during the times. He does not currently have a diagnosis of diabetes. 12/03/16. Seen by Dr. Valdes. The patient does not report pain or drainage associated with the chronic left lateral malleolar non-pressure ulcer have been minimal since his last. 11/26/16. Seen by Dr. Valdes. The patient was here for hyperbarics today however his blood sugars were stay consistently 90 and he has been dropping by as much as 70 points during his dive sessions. 11/17/16. Seen by Dr. Valdes. The patient feels the drainage and pain associated with the chronic left lateral malleolar non-pressure ulcer have been minimal since his last visit and he continues on doxycycline and Flagyl, plus receiving HBOT, for chronic osteomyelitis of the underlying malleolus. Of note, the patient reports some weakness and loss of balance following HBOT dives but does not report other specific symptoms. 11/03/16 Seen by Armin Milligan PA-C. The patient reports no increase in pain or drainage from his left lateral malleolar non-pressure ulcer with underlying chronic osteomyelitis. He has been tolerating HBOT adjunctive therapy well and has been compliant with his dual antibiotic therapy for chronic osteomyelitis without significant adverse side-effects. 10/27/16 Seen by Armin Milligan PA-C. The patient reports no increase in drainage or pain from his chronic left lateral malleolar non-pressure ulcer. 10/21/16. Seen by Dr. Valdes. The patient feels the drainage and pain associated with the chronic left lateral malleolar non-pressure ulcer has been minimal since his last visit and he continues on doxycycline and Flagyl, plus receiving HBOT, for chronic osteomyelitis of the underlying malleolus. 10/14/16 Seen by Armin Milligan PA-C. The patient reports increased erythema in the area of his left lateral malleolar wound and increased drainage as well as pain, which he reports is a stabbing, moderate pain that does not radiate and is intermittent without any identifiable exacerbating or relieving factors. 10/07/16 Seen by Armin Milligan PA-C. The patient reports no increase in drainage from his left lateral malleolar ulcer since his last evaluation. 09/30/16 Seen by Armin Milligan PA-C. The patient's wound culture returned with a coagulase negative staph spp. that is likely resistant to the cefdinir he is taking. His ulcer of the left lateral malleolus has had stable drainage and discomfort. 09/25/16. Seen by Dr. Valdes. The patient feels the pain and periwound redness associated with the left lateral malleolar ulcer and underlying chronic osteomyelitis have nearly resolved over the past week. He also continues on doxycycline without reporting adverse side effects and he has an MRA scheduled tomorrow to evaluate for clinically significant PAD in the left leg that may be inhibiting wound healing. 09/17/16. Seen by Dr. Valdes. The patient does not report pain or drainage associated with the chronic left lateral malleolar ulcer and underlying chronic osteomyelitis. He continues on cefdinir without reporting adverse side effects and is tolerating HBOT without issue. Of note, his arterial Doppler from November shows heavy calcification within the left lower leg arteries and he reports pain in the lower leg at night that improves when he hangs his foot over the bed. His SOLITARIO performed on the left leg from November however was reported as 1.2. 09/10/16. Seen by Dr. Valdes. The patient feels the pain and drainage associated with the chronic left lateral malleolar ulcer and underlying chronic osteomyelitis have decreased since changing from doxycycline to cefdinir this past week. He's also been approved for HBOT and plans to start next Thursday. 09/03/16. Seen by Dr. Valdes. The patient reports increased pain and redness in the chronic left lateral malleolar periwound area over the past 2 days. His wound culture taken on 09/01/16 was unremarkable and he continues on doxycycline for chronic osteomyelitis of the left lateral malleolus without reporting adverse side effects. He does not report fevers or feeling unwell and has bought new shoes and cut out the margin below the ankle so as to prevent trauma to the ulcer. 09/01/16. Seen by Dr. Valdes. The staff report some increased redness and skin breakdown at the left lateral malleolar chronic ulcer site. The patient does not report pain or drainage as the ulcer and his NPWT was held over the long holiday weekend. He also continues on doxycycline for chronic osteomyelitis of the underlying malleolus. 08/22/16. Seen by Dr. Valdes. The patient does not report pain or increased drainage associated with the chronic left lateral malleolar ulcer and he continues on doxycycline for the recent coag negative Staph culture and underlying chronic osteomyelitis. He does note increased redness and some skin breakdown in the periwound area however since taking off the wound vac today. He'll be traveling for the soon and will not be able to return to clinic on his usual schedule. 08/15/16. Seen by Dr. Valdes. The patient does not report pain associated with the chronic left lateral malleolar ulcer and he continues on doxycycline for the recent coag negative Staph culture from the site and underlying chronic osteomyelitis of the lateral malleolus. He's tolerated the wound vac without difficulty. 08/12/16. Seen by Dr. Valdes. The patient does not report pain associated with the chronic left lateral malleolar ulcer and he continues on doxycycline for the recent coag negative Staph culture from the site. He's tolerated the wound vac without difficulty and his recent MRI suggests underlying osteomyelitis of the lateral malleolus. 07/31/16. Seen by Dr. Valdes. The patient does not report pain associated with the chronic left lateral malleolar ulcer and he continues on doxycycline for the recent coag negative Staph culture from the site. His MRI suggests underlying osteomyelitis of the lateral malleolus also. He does not report fevers or feeling unwell nor increased drainage from the ulcer over the past week. Of note, the ulcer's been present for about 1 year and unchanged essentially for many months. 07/24/16. Seen by Dr. Valdes. The patient does not report pain or significant drainage associated with the left lateral malleolar non-pressure ulcer over the past week. His MRI is scheduled for today to evaluate for underlying osteomyelitis. His wound culture from the last visit grew coag negative Staph and he's been applying gentamicin ointment to the ulcer bed as recommended. 07/17/16. Seen by Dr. Valdes. The patient's new to our clinic and presents with a non-healing left lateral malleolar ulcer that's been present for about one year. He does not report pain or significant drainage from the site nor fevers or feeling unwell in general. He does not have a history of diabetes nor does he report symptoms of claudication or rest pain. His most recent wound culture grew 2 species of coag negative Staph however he's not been on systemic antibiotics recently. 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 Past Medical History This information was obtained from the patient Patient has a medical history of: Vertigo Hallux valgus Monoclonal gammopathy Unspecified myalgia and myositis Familial tremor Anemia Gait ataxia Depression Pleural effusion Peripheral neuropathy Anxiety Rhinitis Gastro Esoph. Reflux Disease (GERD) Coronary Artery Disease (CAD) Chronic osteomyelitis (left lateral malleolus; treated with HBOT x2) Complaints and Symptoms This information was obtained from the patient Patient complains of: General Notes: I have reviewed and concur with the Review of Systems and Past Family Social History documents completed by the clinician, I have reviewed and concur with the Wound Assessment document completed by the clinician Integumentary (Hair/Skin/Nails): Open Sore Prior Wound History: Drainage, Erythema, Pain Patient denies complaints or symptoms related to: Cardiovascular (Central): Irregular heart beat Cardiovascular (Central/Peripheral): Intermittent Claudication, Lower extremity (leg) resting pain, Lower extremity (leg) swelling Constitutional Symptoms (General Health): Chills, Fever, Marked Weight Change Ear/Nose/Mouth/Throat: Hearing Loss / Aid Gastrointestinal (GI): Nausea / Vomiting Hematologic/Lymphatic: Bleeding / Clotting Disorders, Bleeding Tendency Musculoskeletal: Deformities, Joint Swelling Neurological: Loss of Protective Sensation Prior Wound History: Bleeding, Malodor Psychiatric: Depression, Memory Loss Respiratory: Oxygen Use, Shortness of Breath OBJECTIVE Constitutional Vital signs reviewed and noted. Well developed. Alert. Clean appearing.. Height/ Length: 74 in (187.96 cm), Weight: 216.5 lbs (98.41 kgs), BMI: 27.8, Temperature: 98.7 ?F ( 37.06 ?C), Pulse: 73 bpm, Respiratory Rate: 18 breaths/min, Blood Pressure: 104/62 mmHg, Pulse Oximetry: 97 %. Respiratory: No respiratory distress. Even respirations and without use of accessory muscles.. Cardiovascular: Affected extremity exhibits no peripheral edema or cyanosis, is warm, and is well perfused. Capillary refill is less than 2 seconds. Integumentary (Hair, Skin) Mild periwound erythema without warmth. Refer to appropriate clinician wound documentation for this visit; right lower leg ulcer extends to subcut with base partially covered with pink granulation, remainder fibrin and slough. Wound #1 Left, Lateral Malleolus is a chronic Full Thickness Neuropathic Ulcer and has received a status of Not Healed. Subsequent wound encounter measurements are 0.2cm length x 0.3cm width x 0.2cm depth, with an area of 0.06 sq cm and a volume of 0.012 cubic cm. No tunneling has been noted. No sinus tract has been noted. No undermining has been noted. There is a moderate amount of serous drainage noted which has no odor. The patient reports no wound pain due to the wound being insensate. The wound margin is rolled. Wound bed has Yes epithelialization, No eschar, Yes slough, No granulation. The periwound skin color is normal. The periwound skin exhibited: Edema, Induration, Moist. The periwound skin did not exhibit: Brawny Induration, Excoriation, Callus, Crepitus, Fluctuance, Friable, Rash, Dry/Scaly, Maceration. The temperature of the periwound skin is WNL. Periwound skin does not exhibit signs or symptoms of infection. Local Pulse is Normal. Neurological: Cranial nerves grossly intact with symmetric function normal by informal observation.. ASSESSMENT Active Problems ICD-10 (Encounter Diagnosis) L97.322 - Non-pressure chronic ulcer of left ankle with fat layer exposed PROCEDURES Wound #1 Wound #1 (Neuropathic Ulcer) is located on the left, lateral malleolus. A skin/ subcutaneous tissue level surgical debridement with a total area debrided of 0.09 sq cm was performed by Shankar Valdes MD. Subcutaneous was removed along with devitalized tissue: slough. The following instrument(s) were used: curette. No anesthetic was required due to loss of sensation. A time out was conducted prior to the start of the procedure. A minimal amount of bleeding was controlled with pressure. The procedure was tolerated well with a loss of sensation throughout and a loss of sensation following the procedure. Post Debridement Measurements: 0.3cm length x 0.3cm width x 0.3cm depth; with an area of 0.09 sq cm and a volume of 0.027 cubic cm; Additional Information Muscle fascia or bone removed and sent to pathology?: No PLAN Wound Orders: Wound #1 Left, Lateral Malleolus Anesthetic Topical Xylocaine to wound bed. - In clinic. Cleanser Cleanse Wound: - Normal saline in clinic. May use distilled water at home. May Shower. - Please avoid getting tap water in wound. Cover while in shower. May use cast protector. Dressings Cover and secure with: - Bordered foam or equivalent. Change Dressing: - Twice a week. Additional Orders: Follow-Up Appointments Return Appointment: - - Three weeks. Other information: If you develop fever, chills, increased pain, drainage, redness or swelling please call our office. If after hours, respond to the ER. Should you experience any significant changes in your wound(s) or have any questions regarding your home care instructions please contact the wound center @ [phone]. If after hours, contact your primary care physician or go to the hospital emergency room. Scribing Attestation I attest, as the nurse, that I scribed these orders for the physician. I've reviewed the clinician's documentation and agree with the evaluation and plan as written. In addition, the patient's ulcer demonstrates evidence of non-viable devitalized tissue which will continue to benefit from sharp debridement to help promote granulation and expedite healing. Electronic Signature(s) Signed By: Date: Shankar Valdes MD 04/14/2018 16:09:26 Entered By: Shankar Valdes on 04/14/2018 15:02:08 Addendum at 05/10/2018 06:40:08 Exam states right lower leg however actual ulcer is located on left lateral malleolus. Addendum Signed By: Shankar Valdes on 05/10/2018 06:40:08 Addendum at 07/13/2018 14:40:26 Exam should reference left lateral malleolus, not the right as documented. Addendum Signed By: Shankar Valdes on 07/13/2018 14:40:26
== END ==
PROVIDERS: PCP Family Medicine; Visit Provider Internal Medicine
DX: L97.322 Non-pressure chronic ulcer of left ankle with fat layer exposed (principal)
CPT/HCPCS: 11042

== ENCOUNTER → 2018-05-05 10:51 | Outpatient (CLI) | payer MEDICARE, OTHER, SELFPAY | PROVIDERS: PCP Family Medicine; Visit Provider Internal Medicine | DX: L97.322 Non-pressure chronic ulcer of left ankle with fat layer exposed (principal) | CPT/HCPCS: 11042 ==

== ENCOUNTER → 2018-05-26 11:37 | Outpatient (CLI) | payer MEDICARE, OTHER, SELFPAY | PROVIDERS: PCP Family Medicine; Visit Provider Internal Medicine | DX: L97.322 Non-pressure chronic ulcer of left ankle with fat layer exposed (principal) | CPT/HCPCS: 11042; 87070; 87077; 87147; 87186; 87205 ==

== ENCOUNTER → 2018-06-09 10:55 | Outpatient (CLI) | payer MEDICARE, OTHER, SELFPAY ==
--- NOTE | 2018-06-09 | OV.WND_ITS ---
Progress Note Details Patient Name: Vin Avila Patient Number: [id number] PatientPatientDate: 06/09/2018 Clinician: Enedina Porras Clinician Cosigner: Ceci Villarreal Physician / Inspector And Hand Packager: Shankar Valdes SUBJECTIVE Chief Complaint This information was obtained from the patient Wound on left lateral ankle. Allergies codeine (Severity: Severe), Augmentin (Severity: Severe) HPI This information was obtained from the patient 06/09/18. Seen by Dr. Valdes. The patient does not report pain or significant drainage associated with the chronic left lateral malleolus non-pressure ulcer since is last visit and he completed his course of Bactrim that was treating the recent Stenotrophomonas and coag negative Staph cultured from the ulcer without reporting adverse side effects. 05/26/18. Seen by Dr. Valdes. The patient does not report pain or significant drainage associated with the chronic left lateral malleolus non-pressure ulcer since is last visit. 05/05/18. Seen by Dr. Valdes. The patient does not report pain or significant drainage associated with the chronic left lateral malleolus non-pressure ulcer since is last visit. 04/14/18. Seen by Dr. Valdes. The patient does not report pain or significant drainage associated with the chronic left lateral malleolus non-pressure ulcer since is last visit. 03/24/18. Seen by Armin Milligan PA-C. The patient reports no increase in pain or drainage from his left ankle ulcer. 03/16/18. Seen by Dr. Valdes. The patient does not report pain or significant drainage associated with the chronic left lateral malleolus non-pressure ulcer since is last visit and his wound culture grew an intermediately resistant coag negative Staph. He's taking doxycycline which is appropriate and applying topical gentamicin to which the Staph partially resistant. 03/08/18. Seen by Dr. Valdes. The patient returns today for review of this chronic left lateral malleolus non-pressure ulcer and due to concern about increased size in periulcer redness. The patient does not report pain at the site however nor increased drainage. 02/23/18. Seen by Dr. Valdes. The patient does not report pain or increased drainage associated with chronic left lateral malleolus non pressure ulcer since his last visit however his reports some malodor when changing the dressing yesterday. His most recent wound culture rate resistant coag-negative Staph and is not currently on antibiotics. 02/04/18. Seen by Dr. Valdes. The patient does not report increased pain or drainage associated with the left lateral malleolus ulcer since his last visit. 01/21/18. Seen by Dr. Valdes. The patient does not report increased pain or drainage associated with the ulcer and they're applying topical gentamicin to treat chronic wound infection as recommended. 12/28/17. Seen by Dr. Valdes. The patient was seen by Dr. May, vascular surgery , for the chronic left lateral malleolus nonpressure ulcer and associated PAD. It was felt that any intervention would likely be equivalent and so they decided to not pursue it at this time. The patient does not report increased pain or drainage associated with the ulcer and they're applying topical gentamicin to treat chronic wound infection as recommended. 12/18/17. Seen by Dr. Valdes. The patient and his report increased drainage associated with the chronic left lateral malleolus non-pressure ulcer since his last visit. He does not report pain at the site and he's also scheduled to see vascular surgery next Thursday to evaluate his left lower leg PAD that may be contributing to the refractory nature of the ulcer. 12/11/17. Seen by Dr. Valdes. The patient and his report increased drainage associated with the chronic left lateral malleolus non-pressure ulcer since his last visit. He does not report pain at the site and he's also scheduled to see vascular surgery on December 21 to evaluate his left lower leg PAD that may be contributing to the refractory nature of the ulcer. 11/27/17. Seen by Armin Milligan PA-C. The patient reports that he has an appointment with [facility] vascular clinic to address his PAD. He reports no increase in drainage from his left lateral malleolar ulcer. 11/13/17. Seen by Dr. Valdes. The patient does not report increased pain or drainage associated with her chronic left lateral malleolus nonpressure ulcer since his last visit. 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 Of note, his study from 2016 showed 3 vessel runoff bilaterally. He has a history of chronic osteomyelitis at this ulcer site and was seen by Dr. Carol Oreilly, orthopedic biomedical equipment support specialist, for consideration of deep debridement but was referred for the repeat Doppler prior to considering surgery. 11/06/17. Seen by Armin Milligan PA-C. The patient reports that he has his arterial doppler scheduled in [place] for next week. He reports no increase in drainage from his left lateral ulcer. 10/29/17. Seen by Armin Milligan PA-C. The patient reports no increase in drainage from his left lateral non-pressure ulcer. He has seen Dr. Marx but has not yet obtained his arterial doppler which she has ordered. 10/22/17. Seen by Dr. Valdes. The patient doesn't report pain or significant drainage associated with chronic left lateral malleolus nonpressure ulcers since last visit. He was seen by Dr. Marx who felt that prior to considering any orthopedic intervention that further vascular workup is required noting he had an MRA in September 2016 that showed a right sided moderate internal iliac stenosis however three-vessel runoff to both lower extremities.He has also completed his course of Zyvox, noting his history of refractory chronic osteomyelitis of the malleolus and recent ulcer deterioration, that was started after his last visit and does not report ever side effects. 10/15/17. Seen by Dr. Valdes. The patient does not report increased pain or drainage associated with the chronic left lateral malleolus nonpressure ulcer since his last visit. His wound culture from last visit grew only diphtheroids. He has an appointment to see Dr. Oreilly, orthopedic biomedical equipment support specialist, next afternoon for a second opinion regarding options to heal this very refractory ulcer noting its prior history of underlying chronic osteomyelitis. 10/07/17. Seen by Dr. Valdes. The patient returns from his visit to [place] and does not report significant drainage nor pain associated with the chronic left lateral malleolus nonpressure ulcer since is last visit. He completed a course of Zyvox that was started prior to his trip and was treating cellulitis associated with the ulcer. Of note, this ulcer's remained very refractory and has been treated for underlying chronic osteomyelitis in 2017 with extended courses of antibiotics, hyperbaric oxygen therapy, and negative pressure wound therapy. 09/14/17. Seen by Dr. Valdes. The patient does not report pain associated with the chronic left lateral malleolus nonpressure ulcers since his last visit. His however feels that there is increased. His however is concerned that there is increased periulcer erythema and warmth and the patient is not currently on antibiotics. 09/08/17. Seen by Armin Milligan PA-C. The patient reports no increase in drainage from his chronic left ankle ulcer. He also wishes to discuss his chronic toenail infections, which have been present form many years and have been resistant to all forms of treatment. He is concerned the chronic nail infections could be seeding infection to his chronic ulcer. 08/31/17. Seen by Armin Milligan PA-C. The patient reports increased drainage from his left malleolar ulcer. 08/20/17. Seen by Dr. Valdes. The patient does not report pain nor significant drainage associated with the chronic left lateral malleolus nonpressure ulcer since his last visit. 08/13/17. Seen by Dr. Valdes. The patient and his feel there's some increased redness around the chronic left lateral malleolus nonpressure ulcer over the past week. He also complains of a significant increase in fatigue and feel asleep at lunch yesterday. He completed his course of Zyvox that's been treating underlying chronic osteomyelitis of the left ankle and his platelets were at 120 last week. 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 08/10/17. Seen by Dr. Valdes. The patient reports some discomfort associated with the left lateral chronic malleoli nonpressure ulcers since restarting negative pressure wound therapy with a snap wound VAC last week. He continues on Zyvox for underlying chronic osteomyelitis of the left lateral malleolus and he does not report adverse side effects however his platelets are down to 120 today from 160 previous week. 08/05/17. Seen by Dr. Valdes. The patient doesn't report pain or increased drainage associated the chronic left lateral malleolus nonpressure ulcers since last visit. He completed a course of Zyvox which is treating underlying chronic osteomyelitis on Thursday and of note his platelets were within normal limits last week. 07/29/17. Seen by Dr. Valdes. The patient does not report pain or significant drainage associated with the chronic left lateral malleolus non-pressure ulcer since his last visit and he continues on Zyvox for underlying chronic osteomyelitis without reporting adverse side effects. His recently documented thrombycytopenia improved following a one week break from using Zyvox and this was restarted due to a recurrence of inflammation, drainage, and pain at the ulcer site. His platelets are 168 today. He's also completed a total of 40 hyperbaric oxygen dives that's being administered as adjunctive therapy for chronic osteomyelitis and his MRI confirms improvement in terms of bone marrow edema. 07/24/17. Seen by Dr. Valdes. The patient does not report increased pain or drainage associated with the chronic left lateral malleolus ulcer however his feels that there is been some increased redness and warmth in the jen-ulcer area. He continues on doxycycline for underlying osteomyelitis and of note was taken off of Zyvox recently due to thrombocytopenia which appears to have now nearly resolved. His most recent wound culture was unremarkable however. 07/21/17. Seen by Armin Milligan PA-C. The patient's MRI shows improving signs of osteomyelitis. The patient notes decreased drainage from his chronic left lateral malleolus ulcer. He reports no side effects from doxycycline which he is taking for his chronic osteomyelitis. 07/17/17. Seen by Dr. Valdes. The patient does not report pain nor significant drainage associated with chronic left lateral malleolus ulcer since his last visit. He continues on Zyvox for underlying osteomyelitis without reporting adverse side effects. Of note, his most recent CBC showed his platelets decreased to 106. He is also tolerating hyperbaric oxygen therapy without difficulty but does report some significant fatigue intermittently throughout the week. He has sleep apnea and feels that he is due to have his CPAP reevaluated. He has an MRI scheduled next week as well to reevaluate the ostial myelitis. 07/14/17. Seen by Armin Milligan PA-C. The patient reports decreased pain and drainage from his left lateral malleolar ulcer. His recent X-ray shows no bone lysis consistent with osteomyelitis, however neither did his plain film which was taken in March. His previous MRI and bone scan have confirmed the diagnosis of osteomyelitis. He continues on Zyvox for his osteomyelitis. 07/09/17. Seen by Dr. Valdes. The patient does not report significant pain nor drainage associated with the chronic left lateral malleolar nonpressure ulcer and he continues on Zyvox for underlying chronic osteomyelitis without reported adverse side effects. His x-ray of the ankle is unremarkable as was his CBC except for platelets of 116. 07/06/17. Seen by Armin Milligan PA-C. The patient reports no side effects from his Zyvox, which he is taking for osteomyelitis. His left lateral malleolar ulcer has had minimal drainage and the swelling and erythema are reportedly improved. 07/03/17. Seen by Dr. Valdes. The patient has been on Zyvox for the past 7 days and does not report adverse side effects. This is treating chronic osteomyelitis of the left lateral malleolus and he reports only minimal drainage from the overlying ulcer. He is also tolerating negative pressure wound therapy without difficulty. Of note, the ulcer is smaller and less deep over the past 3 weeks and the surrounding tissue is much less swollen and erythematous since starting on Zyvox. 06/26/17. Seen by Dr. Valdes. The patient does not report increasing pain nor drainage associated with a chronic left lateral malleolus nonpressure ulcer since his last visit. She is on Bactrim and is recent wound culture grew resistant species of coag-negative staph and Corynebacterium. Based on sensitivities Zyvox is the only oral medication appropriate for management of these 2 organisms. 06/19/17. Seen by Dr. Valdes. The patient does not report pain or increased drainage associated with chronic left lateral malleolus nonpressure ulcers since his last visit. He continues on doxycycline however his recent wound culture returned with a coag negative staph resistant to doxycycline. He also continues with hyperbaric oxygen therapy to treat chronic osteomyelitis without reported any adverse side effects. 06/12/17. Seen by Dr. Valdes. The patient feels that the drainage associated with the chronic left lateral malleolus ulcer has decreased over the past few days. He does not report any associated pain either. He continues on doxycycline for underlying osteomyelitis and does not report adverse side effects. He's also completed 21 was 30 dives in the hyperbaric chamber and does not report any adverse effects. Also, his wound culture from the 09 of June again grew a diptheroids specis and has been sent for further speciation and sensitivities to help direct our antibiotic therapy. 06/09/17. Seen by Dr. Valdes. The patient feels the pain associated with the left lateral malleolus ulcer and underlying chronic osteomyelitis have improved since changing his antibiotics from clindamycin to doxycycline following his last visit. He does not report adverse side effects and his recent wound culture grew only diptheroids. 06/04/17. Seen by Dr. Valdes. The patient does not report significant pain or increased drainage associated with chronic left lateral malleolus nonpressure ulcer. He continues on clindamycin for underlying osteomyelitis of the malleolus and of note his wound culture from 2 days ago shows early growth but does not report a species yet. 06/02/17. Seen by Dr. Valdes. The patient reports some aching of the left lateral malleolus over the past week. He continues on antibiotics for chronic osteomyelitis of the ankle and does not report increased drainage from the overlying nonpressure ulcer. 05/26/17. Seen by Dr. Valdes. The patient does not report significant pain and drainage associated with left lateral malleolus ulcer since his last visit. He is tolerating HBOT as well without difficulty and does not report adverse side effects from antibiotics treating chronic osteomyelitis of the underlying malleolus. 05/21/17. Seen by Armin Milligan PA-C. The patient reports increased pain in his left lateral malleolar ulcer in the past few days. He has taken APAP in the middle of the night to treat the pain, which is unusual for him. 05/14/17. Seen by Dr. Valdes. The patient does not report significant pain or drainage associated with the refractory left lateral malleolar non-pressure ulcer since his last visit and he continues on antibiotics for associated underlying chronic osteomyelitis and HBOT without reporting adverse side effects. He also does not report fevers or adverse affects of the antibiotics. 05/06/17. Seen by Armin Milligan PA-C. The patient reports no increase in pain or drainage from his left lateral malleolar ulcer since his last evaluation. He is also here for HBOT clearance and recalls previous HBOT sessions which he completed without complication. He denies any recent eye surgeries. 04/30/17. Seen by Armin Milligan PA-C. The patient reports no change in drainage or pain from his chronic left lateral malleolar ulcer since his last evaluation. He is currently on clindamycin for chronic osteomyelitis of this area, though he reports that the pharmacy had a prescription for levaquin as well waiting for him. He has been taking both for 7 days and today is his last dose of both. 04/23/17. Seen by Dr. Valdes. The patient reports moderate pain in the lateral ankle when bearing weight along with persistent drainage from the overlying non-pressure ulcer over the past week. He's not currently on antibiotics and does not report fevers or feeling unwell in general. Of note, he's been treated with extended courses of antibiotics and hyperbaric oxygen therapy for chronic osteomyelitis of lateral malleolus at the end of 2015 and into December of 2016 with near resolution of the overlying ulcer about 6 weeks ago. He then presented with an acute deterioration of the ulcer, left lower leg cellulitis, and an MRI that suggested recurrence of osteomyelitis but did no confirm due to the fact the ulcer did not extend to the bone. 04/13/17. Seen by Armin Milligan PA-C. The patient reports that when he underwent his MRI that the compression device his foot was placed in caused significant pain to the left lateral malleolar area. In addition he noted that after the MRI it was more red, swollen and draining more than it was previously. He is currently on doxycycline for his cultured MSSA ulcer infection. Of note his MRI showed some bone marrow edema in the ulcer area but this was thought to be reactive rather than evidence of osteomyelitis. 04/08/17. Seen by Armin Milligan PA-C. The patient reports continued drainage from his left lateral malleolus ulcer and his culture did not grow significant pathologic bacteria. 03/30/17. Seen by Dr. Valdes. The patient reports increased pain and drainage associated with the chronic left lateral malleolus non-pressure ulcer starting last Thursday. He has pain when bearing weight and reports noticeable shivers and chills last night. He's currently off of antibiotics and has been treated within the past few month for chronic osteomyelitis of the malleolus with and extended course of antibiotics and hyperbaric oxygen therapy. 03/20/17. Seen by Dr. Valdes. The patient feels the drainage and pain associated with the chronic left lateral malleolar neuropathic ulcer has resolved. He continues applying topical gentamicin to the ulcer based as recommended to treat a chronic wound infection. 03/06/17. Seen by Dr. Valdes. The patient feels the drainage and pain associated with the chronic left lateral malleolar neuropathic ulcer has improved since starting to apply topical gentamicin twice daily following his last visit. His culture grew a coag negative staph. 02/27/17. Seen by Dr. Valdes. The patient reports increased pain and drainage associated with the chronic left lateral malleolar non-pressure ulcer over the past few days. They stopped applying topical antibiotic as I requested a couple of weeks ago and have been changing the dressing as recommended. 02/13/17. Seen by Dr. Valdes. The patient does not report drainage or pain associated with the chronic left lateral malleolus non-pressure ulcer over the past 2 weeks. 01/30/17. Seen by Dr. Valdes. The patient does not report pain nor significant drainage associated with a chronic left lateral malleolar non-pressure ulcers since last visit. 01/16/17. Seen by Dr. Valdes. The patient does not report pain nor significant drainage associated with a chronic left lateral malleolar non-pressure ulcers since last visit. His vision glare he reported at the last visit has not yet resolved and he's going to see his opthamologist noting this is likely a side effect of his recent hyperbaric oxygen therapy. 01/02/17. Seen by Dr. Valdes. The patient does not report pain nor significant drainage associated with a chronic left lateral malleolar nonpressure ulcers since last visit. Of note, the patient reports persistent vision glare most notable at night since completion of his hyperbaric oxygen therapy. 12/19/16. Seen by Dr. Valdes. The patient does not report increased drainage associated with the chronic left lateral malleolar nonpressure ulcer since his last visit. 12/10/16. Seen with Dr. Valdes. The patient does not report significant drainage or pain associated with the chronic left lateral malleolus nonpressure ulcer over the past week.Of note, he is no longer undergoing HBOT that while being treated he was noted to have a number of elevated blood sugars over 150 and also had considerable issues with hypoglycemia during the times. He does not currently have a diagnosis of diabetes. 12/03/16. Seen by Dr. Valdes. The patient does not report pain or drainage associated with the chronic left lateral malleolar non-pressure ulcer have been minimal since his last. 11/26/16. Seen by Dr. Valdes. The patient was here for hyperbarics today however his blood sugars were stay consistently 90 and he has been dropping by as much as 70 points during his dive sessions. 11/17/16. Seen by Dr. Valdes. The patient feels the drainage and pain associated with the chronic left lateral malleolar non-pressure ulcer have been minimal since his last visit and he continues on doxycycline and Flagyl, plus receiving HBOT, for chronic osteomyelitis of the underlying malleolus. Of note, the patient reports some weakness and loss of balance following HBOT dives but does not report other specific symptoms. 11/03/16 Seen by Armin Milligan PA-C. The patient reports no increase in pain or drainage from his left lateral malleolar non-pressure ulcer with underlying chronic osteomyelitis. He has been tolerating HBOT adjunctive therapy well and has been compliant with his dual antibiotic therapy for chronic osteomyelitis without significant adverse side-effects. 10/27/16 Seen by Armin Milligan PA-C. The patient reports no increase in drainage or pain from his chronic left lateral malleolar non-pressure ulcer. 10/21/16. Seen by Dr. Valdes. The patient feels the drainage and pain associated with the chronic left lateral malleolar non-pressure ulcer has been minimal since his last visit and he continues on doxycycline and Flagyl, plus receiving HBOT, for chronic osteomyelitis of the underlying malleolus. 10/14/16 Seen by Armin Milligan PA-C. The patient reports increased erythema in the area of his left lateral malleolar wound and increased drainage as well as pain, which he reports is a stabbing, moderate pain that does not radiate and is intermittent without any identifiable exacerbating or relieving factors. 10/07/16 Seen by Armin Milligan PA-C. The patient reports no increase in drainage from his left lateral malleolar ulcer since his last evaluation. 09/30/16 Seen by Armin Milligan PA-C. The patient's wound culture returned with a coagulase negative staph spp. that is likely resistant to the cefdinir he is taking. His ulcer of the left lateral malleolus has had stable drainage and discomfort. 09/25/16. Seen by Dr. Valdes. The patient feels the pain and periwound redness associated with the left lateral malleolar ulcer and underlying chronic osteomyelitis have nearly resolved over the past week. He also continues on doxycycline without reporting adverse side effects and he has an MRA scheduled tomorrow to evaluate for clinically significant PAD in the left leg that may be inhibiting wound healing. 09/17/16. Seen by Dr. Valdes. The patient does not report pain or drainage associated with the chronic left lateral malleolar ulcer and underlying chronic osteomyelitis. He continues on cefdinir without reporting adverse side effects and is tolerating HBOT without issue. Of note, his arterial Doppler from November shows heavy calcification within the left lower leg arteries and he reports pain in the lower leg at night that improves when he hangs his foot over the bed. His SOLITARIO performed on the left leg from November however was reported as 1.2. 09/10/16. Seen by Dr. Valdes. The patient feels the pain and drainage associated with the chronic left lateral malleolar ulcer and underlying chronic osteomyelitis have decreased since changing from doxycycline to cefdinir this past week. He's also been approved for HBOT and plans to start next Thursday. 09/03/16. Seen by Dr. Valdes. The patient reports increased pain and redness in the chronic left lateral malleolar periwound area over the past 2 days. His wound culture taken on 09/01/16 was unremarkable and he continues on doxycycline for chronic osteomyelitis of the left lateral malleolus without reporting adverse side effects. He does not report fevers or feeling unwell and has bought new shoes and cut out the margin below the ankle so as to prevent trauma to the ulcer. 09/01/16. Seen by Dr. Valdes. The staff report some increased redness and skin breakdown at the left lateral malleolar chronic ulcer site. The patient does not report pain or drainage as the ulcer and his NPWT was held over the long holiday weekend. He also continues on doxycycline for chronic osteomyelitis of the underlying malleolus. 08/22/16. Seen by Dr. Valdes. The patient does not report pain or increased drainage associated with the chronic left lateral malleolar ulcer and he continues on doxycycline for the recent coag negative Staph culture and underlying chronic osteomyelitis. He does note increased redness and some skin breakdown in the periwound area however since taking off the wound vac today. He'll be traveling for the soon and will not be able to return to clinic on his usual schedule. 08/15/16. Seen by Dr. Valdes. The patient does not report pain associated with the chronic left lateral malleolar ulcer and he continues on doxycycline for the recent coag negative Staph culture from the site and underlying chronic osteomyelitis of the lateral malleolus. He's tolerated the wound vac without difficulty. 08/12/16. Seen by Dr. Valdes. The patient does not report pain associated with the chronic left lateral malleolar ulcer and he continues on doxycycline for the recent coag negative Staph culture from the site. He's tolerated the wound vac without difficulty and his recent MRI suggests underlying osteomyelitis of the lateral malleolus. 07/31/16. Seen by Dr. Valdes. The patient does not report pain associated with the chronic left lateral malleolar ulcer and he continues on doxycycline for the recent coag negative Staph culture from the site. His MRI suggests underlying osteomyelitis of the lateral malleolus also. He does not report fevers or feeling unwell nor increased drainage from the ulcer over the past week. Of note, the ulcer's been present for about 1 year and unchanged essentially for many months. 07/24/16. Seen by Dr. Valdes. The patient does not report pain or significant drainage associated with the left lateral malleolar non-pressure ulcer over the past week. His MRI is scheduled for today to evaluate for underlying osteomyelitis. His wound culture from the last visit grew coag negative Staph and he's been applying gentamicin ointment to the ulcer bed as recommended. 07/17/16. Seen by Dr. Valdes. The patient's new to our clinic and presents with a non-healing left lateral malleolar ulcer that's been present for about one year. He does not report pain or significant drainage from the site nor fevers or feeling unwell in general. He does not have a history of diabetes nor does he report symptoms of claudication or rest pain. His most recent wound culture grew 2 species of coag negative Staph however he's not been on systemic antibiotics recently. 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 Past Medical History This information was obtained from the patient Patient has a medical history of: Vertigo Hallux valgus Monoclonal gammopathy Unspecified myalgia and myositis Familial tremor Anemia Gait ataxia Depression Pleural effusion Peripheral neuropathy Anxiety Rhinitis Gastro Esoph. Reflux Disease (GERD) Coronary Artery Disease (CAD) Chronic osteomyelitis (left lateral malleolus; treated with HBOT x2) Complaints and Symptoms This information was obtained from the patient Patient complains of: General Notes: I have reviewed and concur with the Review of Systems and Past Family Social History documents completed by the clinician, I have reviewed and concur with the Wound Assessment document completed by the clinician Integumentary (Hair/Skin/Nails): Open Sore Prior Wound History: Drainage, Erythema, Pain Patient denies complaints or symptoms related to: Cardiovascular (Central): Irregular heart beat Cardiovascular (Central/Peripheral): Intermittent Claudication, Lower extremity (leg) resting pain, Lower extremity (leg) swelling Constitutional Symptoms (General Health): Chills, Fever, Marked Weight Change Ear/Nose/Mouth/Throat: Hearing Loss / Aid Gastrointestinal (GI): Nausea / Vomiting Hematologic/Lymphatic: Bleeding / Clotting Disorders, Bleeding Tendency Musculoskeletal: Deformities, Joint Swelling Neurological: Loss of Protective Sensation Prior Wound History: Bleeding, Malodor Psychiatric: Depression, Memory Loss Respiratory: Oxygen Use, Shortness of Breath OBJECTIVE Constitutional Vital signs reviewed and noted. Well developed. Alert. Clean appearing.. Height/ Length: 74 in (187.96 cm), Weight: 215 lbs (97.73 kgs), BMI: 27.6, Temperature: 97.5 ?F ( 36.39 ?C), Pulse: 65 bpm, Respiratory Rate: 18 breaths/min, Blood Pressure: 133/79 mmHg, Pulse Oximetry: 99 %. Ears, Nose, Mouth, and Throat: Moderate hearing deficit. Respiratory: No respiratory distress. Even respirations and without use of accessory muscles.. Cardiovascular: Affected extremity exhibits no peripheral edema or cyanosis, is warm, and is well perfused. Capillary refill is less than 2 seconds. Integumentary (Hair, Skin) Mild periwound erythema without warmth. Refer to appropriate clinician wound documentation for this visit; left lateral malleolus ulcer extends to subcut with base partially covered with pink granulation. Wound #1 Left, Lateral Malleolus is a chronic Full Thickness Neuropathic Ulcer and has received a status of Not Healed. Subsequent wound encounter measurements are 0.2cm length x 0.3cm width x 0.2cm depth, with an area of 0.06 sq cm and a volume of 0.012 cubic cm. No tunneling has been noted. No sinus tract has been noted. No undermining has been noted. There is a scant amount of serous drainage noted which has no odor. The patient reports no wound pain due to the wound being insensate. The wound margin is rolled. Wound bed has Yes epithelialization, No eschar, Yes slough, No granulation. The periwound skin moisture is normal. The periwound skin color is normal. The periwound skin exhibited: Edema, Induration. The periwound skin did not exhibit: Brawny Induration, Excoriation, Callus, Crepitus, Fluctuance, Friable, Rash. The temperature of the periwound skin is WNL. Periwound skin does not exhibit signs or symptoms of infection. Local Pulse is Normal. Neurological: Cranial nerves grossly intact with symmetric function normal by informal observation.. ASSESSMENT Active Problems ICD-10 (Encounter Diagnosis) L97.322 - Non-pressure chronic ulcer of left ankle with fat layer exposed PROCEDURES Wound #1 Wound #1 (Neuropathic Ulcer) is located on the left, lateral malleolus. A skin/ subcutaneous tissue level surgical debridement with a total area debrided of 0.06 sq cm was performed by Shankar Valdes MD. Subcutaneous was removed along with devitalized tissue: slough. The following instrument(s) were used: curette. Pain control was achieved using 4% Lido. A time out was conducted prior to the start of the procedure. A minimal amount of bleeding was controlled with n/a. The procedure was tolerated well with a pain level of 0 throughout and a pain level of 0 following the procedure. Post Debridement Measurements: 0.2cm length x 0.3cm width x 0.3cm depth; with an area of 0.06 sq cm and a volume of 0.018 cubic cm; Wound #1 (Neuropathic Ulcer) is located on the left, lateral malleolus. A skin substitute procedure was performed using Grafix Core 2x3 by Shankar Valdes MD with an application area of 0.06 sq cm. The product was not fenestrated. sq cm of product was wasted. 0.06 sq cm of product was utilized and was secured with Steri-Strips. Post application, a dressing was applied: LORNE 4x8. A time out was conducted prior to the start of the procedure. The procedure was tolerated well with a pain level of 0 throughout and a pain level of 0 following the procedure. General Notes: Graphix core 16mm Wound #1 (Neuropathic Ulcer) is located on the left, lateral malleolus. A Disposable Wound Vac Application < 50 Sq Cm procedure was performed for the lower left extremity by Shankar Valdes MD. A time out was conducted prior to the start of the procedure. The procedure was tolerated well. 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 : Yes Is wound free of infection and necrosis? : Yes Exposed bone? : No Date of onset and previous therapies documented? : Yes Documentation of ulcer being present for 4 weeks or more? : Yes Does wound measure greater than 1.0 sq. cm? : No Are the measurements at baseline, following cessation of conservative tx and prior to application of product documented? : Yes Is SOLITARIO greater than 0.60 documented? : No Has the patient stopped smoking or have they had documented tobacco use/smoking cessation counseling? : Yes Is there documentations of concurrent medical management of patient's underlying medical conditions? : Yes PLAN Wound Orders: Wound #1 Left, Lateral Malleolus Anesthetic Topical Xylocaine to wound bed. - In clinic. Cleanser Cleanse Wound: - Normal saline in clinic. May use distilled water at home. May Shower. - Please avoid getting tap water in wound. Cover while in shower. May use cast protector. Dressings Primary dressing: - Grafix core 16mm Cover and secure with: - Steri strips, adaptic Negative Pressure Wound Therapy - LORNE 4x8. Please monitor device for blinking green light. If dressing loses suction attempt to reseal with tape. If unable to regain seal call clinic during business hours or remove foam dressing and cover with a new bordered foam. Additional Orders: Follow-Up Appointments Return Appointment: - - One week. Other information: If you develop fever, chills, increased pain, drainage, redness or swelling please call our office. If after hours, respond to the ER. Should you experience any significant changes in your wound(s) or have any questions regarding your home care instructions please contact the wound center @ [phone]. If after hours, contact your primary care physician or go to the hospital emergency room. Scribing Attestation I attest, as the nurse, that I scribed these orders for the physician. I've reviewed the clinician's documentation and agree with the evaluation and plan as written. In addition, the patient's ulcer demonstrates evidence of non-viable devitalized tissue which will continue to benefit from sharp debridement to help promote granulation and expedite healing. Negative pressure wound therapy will be utilized to facilitate granulation and removal of exudate and infectious material with the goal of expediting wound healing. Also, I've placed a first application of a Grafix biologic skin substitute today to help facilitate granulation and expedite healing of this very refractory ulcer. Electronic Signature(s) Signed By: Date: Shankar Valdes MD 06/10/2018 14:31:14 Shankar Valdes MD 06/10/2018 14:31:14 Entered By: Shankar Valdes on 06/10/2018 14:25:04
== END ==
PROVIDERS: PCP Family Medicine; Visit Provider Internal Medicine
DX: G90.9 Disorder of the autonomic nervous system, unspecified (principal); L97.322 Non-pressure chronic ulcer of left ankle with fat layer exposed
CPT/HCPCS: 15271; 97607; Q4132

== ENCOUNTER → 2018-06-16 09:23 | Outpatient (CLI) | payer MEDICARE, OTHER, SELFPAY ==
--- NOTE | 2018-06-16 | OV.WND_ITS ---
Progress Note Details Patient Name: Vin Avila Patient Number: [id number] PatientPatientDate: 06/16/2018 Clinician: Enedina Porras Physician / Corporate Operations Compliance Manager: Shankar Valdes SUBJECTIVE Chief Complaint This information was obtained from the patient Wound on left lateral ankle. Allergies codeine (Severity: Severe), Augmentin (Severity: Severe) HPI This information was obtained from the patient 06/16/18. Seen by Dr. Valdes. The patient does not report pain or significant drainage associated with the chronic left lateral malleolus non-pressure ulcer since is last visit when we placed a [employer] biologic skin substitute. The nurse reports some increased periwound redness and warmth however and he recently completed a course of Bactrim for a Stenotrophomonas and coag negative Staph positive culture. 06/09/18. Seen by Dr. Valdes. The patient does not report pain or significant drainage associated with the chronic left lateral malleolus non-pressure ulcer since is last visit and he completed his course of Bactrim that was treating the recent Stenotrophomonas and coag negative Staph cultured from the ulcer without reporting adverse side effects. 05/26/18. Seen by Dr. Valdes. The patient does not report pain or significant drainage associated with the chronic left lateral malleolus non-pressure ulcer since is last visit. 05/05/18. Seen by Dr. Valdes. The patient does not report pain or significant drainage associated with the chronic left lateral malleolus non-pressure ulcer since is last visit. 04/14/18. Seen by Dr. Valdes. The patient does not report pain or significant drainage associated with the chronic left lateral malleolus non-pressure ulcer since is last visit. 03/24/18. Seen by Armin Milligan PA-C. The patient reports no increase in pain or drainage from his left ankle ulcer. 03/16/18. Seen by Dr. Valdes. The patient does not report pain or significant drainage associated with the chronic left lateral malleolus non-pressure ulcer since is last visit and his wound culture grew an intermediately resistant coag negative Staph. He's taking doxycycline which is appropriate and applying topical gentamicin to which the Staph partially resistant. 03/08/18. Seen by Dr. Valdes. The patient returns today for review of this chronic left lateral malleolus non-pressure ulcer and due to concern about increased size in periulcer redness. The patient does not report pain at the site however nor increased drainage. 02/23/18. Seen by Dr. Valdes. The patient does not report pain or increased drainage associated with chronic left lateral malleolus non pressure ulcer since his last visit however his reports some malodor when changing the dressing yesterday. His most recent wound culture rate resistant coag-negative Staph and is not currently on antibiotics. 02/04/18. Seen by Dr. Valdes. The patient does not report increased pain or drainage associated with the left lateral malleolus ulcer since his last visit. 01/21/18. Seen by Dr. Valdes. The patient does not report increased pain or drainage associated with the ulcer and they're applying topical gentamicin to treat chronic wound infection as recommended. 12/28/17. Seen by Dr. Valdes. The patient was seen by Dr. May, vascular surgery , for the chronic left lateral malleolus nonpressure ulcer and associated PAD. It was felt that any intervention would likely be equivalent and so they decided to not pursue it at this time. The patient does not report increased pain or drainage associated with the ulcer and they're applying topical gentamicin to treat chronic wound infection as recommended. 12/18/17. Seen by Dr. Valdes. The patient and his report increased drainage associated with the chronic left lateral malleolus non-pressure ulcer since his last visit. He does not report pain at the site and he's also scheduled to see vascular surgery next Thursday to evaluate his left lower leg PAD that may be contributing to the refractory nature of the ulcer. 12/11/17. Seen by Dr. Valdes. The patient and his report increased drainage associated with the chronic left lateral malleolus non-pressure ulcer since his last visit. He does not report pain at the site and he's also scheduled to see vascular surgery on December 21 to evaluate his left lower leg PAD that may be contributing to the refractory nature of the ulcer. 11/27/17. Seen by Armin Milligan PA-C. The patient reports that he has an appointment with [facility] vascular clinic to address his PAD. He reports no increase in drainage from his left lateral malleolar ulcer. 11/13/17. Seen by Dr. Valdes. The patient does not report increased pain or drainage associated with her chronic left lateral malleolus nonpressure ulcer since his last visit. 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 Of note, his study from 2016 showed 3 vessel runoff bilaterally. He has a history of chronic osteomyelitis at this ulcer site and was seen by Dr. Carol Oreilly, orthopedic metabolic specialist, for consideration of deep debridement but was referred for the repeat Doppler prior to considering surgery. 11/06/17. Seen by Armin Milligan PA-C. The patient reports that he has his arterial doppler scheduled in [place] for next week. He reports no increase in drainage from his left lateral ulcer. 10/29/17. Seen by Armin Milligan PA-C. The patient reports no increase in drainage from his left lateral non-pressure ulcer. He has seen Dr. Marx but has not yet obtained his arterial doppler which she has ordered. 10/22/17. Seen by Dr. Valdes. The patient doesn't report pain or significant drainage associated with chronic left lateral malleolus nonpressure ulcers since last visit. He was seen by Dr. Marx who felt that prior to considering any orthopedic intervention that further vascular workup is required noting he had an MRA in September 2016 that showed a right sided moderate internal iliac stenosis however three-vessel runoff to both lower extremities.He has also completed his course of Zyvox, noting his history of refractory chronic osteomyelitis of the malleolus and recent ulcer deterioration, that was started after his last visit and does not report ever side effects. 10/15/17. Seen by Dr. Valdes. The patient does not report increased pain or drainage associated with the chronic left lateral malleolus nonpressure ulcer since his last visit. His wound culture from last visit grew only diphtheroids. He has an appointment to see Dr. Oreilly, orthopedic metabolic specialist, next afternoon for a second opinion regarding options to heal this very refractory ulcer noting its prior history of underlying chronic osteomyelitis. 10/07/17. Seen by Dr. Valdes. The patient returns from his visit to [place] and does not report significant drainage nor pain associated with the chronic left lateral malleolus nonpressure ulcer since is last visit. He completed a course of Zyvox that was started prior to his trip and was treating cellulitis associated with the ulcer. Of note, this ulcer's remained very refractory and has been treated for underlying chronic osteomyelitis in 2017 with extended courses of antibiotics, hyperbaric oxygen therapy, and negative pressure wound therapy. 09/14/17. Seen by Dr. Valdes. The patient does not report pain associated with the chronic left lateral malleolus nonpressure ulcers since his last visit. His however feels that there is increased. His however is concerned that there is increased periulcer erythema and warmth and the patient is not currently on antibiotics. 09/08/17. Seen by Armin Milligan PA-C. The patient reports no increase in drainage from his chronic left ankle ulcer. He also wishes to discuss his chronic toenail infections, which have been present form many years and have been resistant to all forms of treatment. He is concerned the chronic nail infections could be seeding infection to his chronic ulcer. 08/31/17. Seen by Arimn Milligan PA-C. The patient reports increased drainage from his left malleolar ulcer. 08/20/17. Seen by Dr. Valdes. The patient does not report pain nor significant drainage associated with the chronic left lateral malleolus nonpressure ulcer since his last visit. 08/13/17. Seen by Dr. Valdes. The patient and his feel there's some increased redness around the chronic left lateral malleolus nonpressure ulcer over the past week. He also complains of a significant increase in fatigue and feel asleep at lunch yesterday. He completed his course of Zyvox that's been treating underlying chronic osteomyelitis of the left ankle and his platelets were at 120 last week. 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 08/10/17. Seen by Dr. Valdes. The patient reports some discomfort associated with the left lateral chronic malleoli nonpressure ulcers since restarting negative pressure wound therapy with a snap wound VAC last week. He continues on Zyvox for underlying chronic osteomyelitis of the left lateral malleolus and he does not report adverse side effects however his platelets are down to 120 today from 160 previous week. 08/05/17. Seen by Dr. Valdes. The patient doesn't report pain or increased drainage associated the chronic left lateral malleolus nonpressure ulcers since last visit. He completed a course of Zyvox which is treating underlying chronic osteomyelitis on Thursday and of note his platelets were within normal limits last week. 07/29/17. Seen by Dr. Valdes. The patient does not report pain or significant drainage associated with the chronic left lateral malleolus non-pressure ulcer since his last visit and he continues on Zyvox for underlying chronic osteomyelitis without reporting adverse side effects. His recently documented thrombycytopenia improved following a one week break from using Zyvox and this was restarted due to a recurrence of inflammation, drainage, and pain at the ulcer site. His platelets are 168 today. He's also completed a total of 40 hyperbaric oxygen dives that's being administered as adjunctive therapy for chronic osteomyelitis and his MRI confirms improvement in terms of bone marrow edema. 07/24/17. Seen by Dr. Valdes. The patient does not report increased pain or drainage associated with the chronic left lateral malleolus ulcer however his feels that there is been some increased redness and warmth in the jen-ulcer area. He continues on doxycycline for underlying osteomyelitis and of note was taken off of Zyvox recently due to thrombocytopenia which appears to have now nearly resolved. His most recent wound culture was unremarkable however. 07/21/17. Seen by Armin Milligan PA-C. The patient's MRI shows improving signs of osteomyelitis. The patient notes decreased drainage from his chronic left lateral malleolus ulcer. He reports no side effects from doxycycline which he is taking for his chronic osteomyelitis. 07/17/17. Seen by Dr. Valdes. The patient does not report pain nor significant drainage associated with chronic left lateral malleolus ulcer since his last visit. He continues on Zyvox for underlying osteomyelitis without reporting adverse side effects. Of note, his most recent CBC showed his platelets decreased to 106. He is also tolerating hyperbaric oxygen therapy without difficulty but does report some significant fatigue intermittently throughout the week. He has sleep apnea and feels that he is due to have his CPAP reevaluated. He has an MRI scheduled next week as well to reevaluate the ostial myelitis. 07/14/17. Seen by Armin Milligan PA-C. The patient reports decreased pain and drainage from his left lateral malleolar ulcer. His recent X-ray shows no bone lysis consistent with osteomyelitis, however neither did his plain film which was taken in March. His previous MRI and bone scan have confirmed the diagnosis of osteomyelitis. He continues on Zyvox for his osteomyelitis. 07/09/17. Seen by Dr. Valdes. The patient does not report significant pain nor drainage associated with the chronic left lateral malleolar nonpressure ulcer and he continues on Zyvox for underlying chronic osteomyelitis without reported adverse side effects. His x-ray of the ankle is unremarkable as was his CBC except for platelets of 116. 07/06/17. Seen by Armin Milligan PA-C. The patient reports no side effects from his Zyvox, which he is taking for osteomyelitis. His left lateral malleolar ulcer has had minimal drainage and the swelling and erythema are reportedly improved. 07/03/17. Seen by Dr. Valdes. The patient has been on Zyvox for the past 7 days and does not report adverse side effects. This is treating chronic osteomyelitis of the left lateral malleolus and he reports only minimal drainage from the overlying ulcer. He is also tolerating negative pressure wound therapy without difficulty. Of note, the ulcer is smaller and less deep over the past 3 weeks and the surrounding tissue is much less swollen and erythematous since starting on Zyvox. 06/26/17. Seen by Dr. Valdes. The patient does not report increasing pain nor drainage associated with a chronic left lateral malleolus nonpressure ulcer since his last visit. She is on Bactrim and is recent wound culture grew resistant species of coag-negative staph and Corynebacterium. Based on sensitivities Zyvox is the only oral medication appropriate for management of these 2 organisms. 06/19/17. Seen by Dr. Valdes. The patient does not report pain or increased drainage associated with chronic left lateral malleolus nonpressure ulcers since his last visit. He continues on doxycycline however his recent wound culture returned with a coag negative staph resistant to doxycycline. He also continues with hyperbaric oxygen therapy to treat chronic osteomyelitis without reported any adverse side effects. 06/12/17. Seen by Dr. Valdes. The patient feels that the drainage associated with the chronic left lateral malleolus ulcer has decreased over the past few days. He does not report any associated pain either. He continues on doxycycline for underlying osteomyelitis and does not report adverse side effects. He's also completed 21 was 30 dives in the hyperbaric chamber and does not report any adverse effects. Also, his wound culture from the 09 of June again grew a diptheroids specis and has been sent for further speciation and sensitivities to help direct our antibiotic therapy. 06/09/17. Seen by Dr. Valdes. The patient feels the pain associated with the left lateral malleolus ulcer and underlying chronic osteomyelitis have improved since changing his antibiotics from clindamycin to doxycycline following his last visit. He does not report adverse side effects and his recent wound culture grew only diptheroids. 06/04/17. Seen by Dr. Valdes. The patient does not report significant pain or increased drainage associated with chronic left lateral malleolus nonpressure ulcer. He continues on clindamycin for underlying osteomyelitis of the malleolus and of note his wound culture from 2 days ago shows early growth but does not report a species yet. 06/02/17. Seen by Dr. Valdes. The patient reports some aching of the left lateral malleolus over the past week. He continues on antibiotics for chronic osteomyelitis of the ankle and does not report increased drainage from the overlying nonpressure ulcer. 05/26/17. Seen by Dr. Valdes. The patient does not report significant pain and drainage associated with left lateral malleolus ulcer since his last visit. He is tolerating HBOT as well without difficulty and does not report adverse side effects from antibiotics treating chronic osteomyelitis of the underlying malleolus. 05/21/17. Seen by Armin Milligan PA-C. The patient reports increased pain in his left lateral malleolar ulcer in the past few days. He has taken APAP in the middle of the night to treat the pain, which is unusual for him. 05/14/17. Seen by Dr. Valdes. The patient does not report significant pain or drainage associated with the refractory left lateral malleolar non-pressure ulcer since his last visit and he continues on antibiotics for associated underlying chronic osteomyelitis and HBOT without reporting adverse side effects. He also does not report fevers or adverse affects of the antibiotics. 05/06/17. Seen by Armin Milligan PA-C. The patient reports no increase in pain or drainage from his left lateral malleolar ulcer since his last evaluation. He is also here for HBOT clearance and recalls previous HBOT sessions which he completed without complication. He denies any recent eye surgeries. 04/30/17. Seen by Armni Milligan PA-C. The patient reports no change in drainage or pain from his chronic left lateral malleolar ulcer since his last evaluation. He is currently on clindamycin for chronic osteomyelitis of this area, though he reports that the pharmacy had a prescription for levaquin as well waiting for him. He has been taking both for 7 days and today is his last dose of both. 04/23/17. Seen by Dr. Valdes. The patient reports moderate pain in the lateral ankle when bearing weight along with persistent drainage from the overlying non-pressure ulcer over the past week. He's not currently on antibiotics and does not report fevers or feeling unwell in general. Of note, he's been treated with extended courses of antibiotics and hyperbaric oxygen therapy for chronic osteomyelitis of lateral malleolus at the end of 2015 and into December of 2016 with near resolution of the overlying ulcer about 6 weeks ago. He then presented with an acute deterioration of the ulcer, left lower leg cellulitis, and an MRI that suggested recurrence of osteomyelitis but did no confirm due to the fact the ulcer did not extend to the bone. 04/13/17. Seen by Armin Milligan PA-C. The patient reports that when he underwent his MRI that the compression device his foot was placed in caused significant pain to the left lateral malleolar area. In addition he noted that after the MRI it was more red, swollen and draining more than it was previously. He is currently on doxycycline for his cultured MSSA ulcer infection. Of note his MRI showed some bone marrow edema in the ulcer area but this was thought to be reactive rather than evidence of osteomyelitis. 04/08/17. Seen by Armin Milligan PA-C. The patient reports continued drainage from his left lateral malleolus ulcer and his culture did not grow significant pathologic bacteria. 03/30/17. Seen by Dr. Valdes. The patient reports increased pain and drainage associated with the chronic left lateral malleolus non-pressure ulcer starting last Thursday. He has pain when bearing weight and reports noticeable shivers and chills last night. He's currently off of antibiotics and has been treated within the past few month for chronic osteomyelitis of the malleolus with and extended course of antibiotics and hyperbaric oxygen therapy. 03/20/17. Seen by Dr. Valdes. The patient feels the drainage and pain associated with the chronic left lateral malleolar neuropathic ulcer has resolved. He continues applying topical gentamicin to the ulcer based as recommended to treat a chronic wound infection. 03/06/17. Seen by Dr. Valdes. The patient feels the drainage and pain associated with the chronic left lateral malleolar neuropathic ulcer has improved since starting to apply topical gentamicin twice daily following his last visit. His culture grew a coag negative staph. 02/27/17. Seen by Dr. Valdes. The patient reports increased pain and drainage associated with the chronic left lateral malleolar non-pressure ulcer over the past few days. They stopped applying topical antibiotic as I requested a couple of weeks ago and have been changing the dressing as recommended. 02/13/17. Seen by Dr. Valdes. The patient does not report drainage or pain associated with the chronic left lateral malleolus non-pressure ulcer over the past 2 weeks. 01/30/17. Seen by Dr. Valdes. The patient does not report pain nor significant drainage associated with a chronic left lateral malleolar non-pressure ulcers since last visit. 01/16/17. Seen by Dr. Valdes. The patient does not report pain nor significant drainage associated with a chronic left lateral malleolar non-pressure ulcers since last visit. His vision glare he reported at the last visit has not yet resolved and he's going to see his opthamologist noting this is likely a side effect of his recent hyperbaric oxygen therapy. 01/02/17. Seen by Dr. Valdes. The patient does not report pain nor significant drainage associated with a chronic left lateral malleolar nonpressure ulcers since last visit. Of note, the patient reports persistent vision glare most notable at night since completion of his hyperbaric oxygen therapy. 12/19/16. Seen by Dr. Valdes. The patient does not report increased drainage associated with the chronic left lateral malleolar nonpressure ulcer since his last visit. 12/10/16. Seen with Dr. Valdes. The patient does not report significant drainage or pain associated with the chronic left lateral malleolus nonpressure ulcer over the past week.Of note, he is no longer undergoing HBOT that while being treated he was noted to have a number of elevated blood sugars over 150 and also had considerable issues with hypoglycemia during the times. He does not currently have a diagnosis of diabetes. 12/03/16. Seen by Dr. Valdes. The patient does not report pain or drainage associated with the chronic left lateral malleolar non-pressure ulcer have been minimal since his last. 11/26/16. Seen by Dr. Valdes. The patient was here for hyperbarics today however his blood sugars were stay consistently 90 and he has been dropping by as much as 70 points during his dive sessions. 11/17/16. Seen by Dr. Valdes. The patient feels the drainage and pain associated with the chronic left lateral malleolar non-pressure ulcer have been minimal since his last visit and he continues on doxycycline and Flagyl, plus receiving HBOT, for chronic osteomyelitis of the underlying malleolus. Of note, the patient reports some weakness and loss of balance following HBOT dives but does not report other specific symptoms. 11/03/16 Seen by Armin Milligan PA-C. The patient reports no increase in pain or drainage from his left lateral malleolar non-pressure ulcer with underlying chronic osteomyelitis. He has been tolerating HBOT adjunctive therapy well and has been compliant with his dual antibiotic therapy for chronic osteomyelitis without significant adverse side-effects. 10/27/16 Seen by Armin Milligan PA-C. The patient reports no increase in drainage or pain from his chronic left lateral malleolar non-pressure ulcer. 10/21/16. Seen by Dr. Valdes. The patient feels the drainage and pain associated with the chronic left lateral malleolar non-pressure ulcer has been minimal since his last visit and he continues on doxycycline and Flagyl, plus receiving HBOT, for chronic osteomyelitis of the underlying malleolus. 10/14/16 Seen by Armin Milligan PA-C. The patient reports increased erythema in the area of his left lateral malleolar wound and increased drainage as well as pain, which he reports is a stabbing, moderate pain that does not radiate and is intermittent without any identifiable exacerbating or relieving factors. 10/07/16 Seen by Armin Milligan PA-C. The patient reports no increase in drainage from his left lateral malleolar ulcer since his last evaluation. 09/30/16 Seen by Armin Milligan PA-C. The patient's wound culture returned with a coagulase negative staph spp. that is likely resistant to the cefdinir he is taking. His ulcer of the left lateral malleolus has had stable drainage and discomfort. 09/25/16. Seen by Dr. Valdes. The patient feels the pain and periwound redness associated with the left lateral malleolar ulcer and underlying chronic osteomyelitis have nearly resolved over the past week. He also continues on doxycycline without reporting adverse side effects and he has an MRA scheduled tomorrow to evaluate for clinically significant PAD in the left leg that may be inhibiting wound healing. 09/17/16. Seen by Dr. Valdes. The patient does not report pain or drainage associated with the chronic left lateral malleolar ulcer and underlying chronic osteomyelitis. He continues on cefdinir without reporting adverse side effects and is tolerating HBOT without issue. Of note, his arterial Doppler from November shows heavy calcification within the left lower leg arteries and he reports pain in the lower leg at night that improves when he hangs his foot over the bed. His SOLITARIO performed on the left leg from November however was reported as 1.2. 09/10/16. Seen by Dr. Valdes. The patient feels the pain and drainage associated with the chronic left lateral malleolar ulcer and underlying chronic osteomyelitis have decreased since changing from doxycycline to cefdinir this past week. He's also been approved for HBOT and plans to start next Thursday. 09/03/16. Seen by Dr. Valdes. The patient reports increased pain and redness in the chronic left lateral malleolar periwound area over the past 2 days. His wound culture taken on 09/01/16 was unremarkable and he continues on doxycycline for chronic osteomyelitis of the left lateral malleolus without reporting adverse side effects. He does not report fevers or feeling unwell and has bought new shoes and cut out the margin below the ankle so as to prevent trauma to the ulcer. 09/01/16. Seen by Dr. Valdes. The staff report some increased redness and skin breakdown at the left lateral malleolar chronic ulcer site. The patient does not report pain or drainage as the ulcer and his NPWT was held over the long holiday weekend. He also continues on doxycycline for chronic osteomyelitis of the underlying malleolus. 08/22/16. Seen by Dr. Valdes. The patient does not report pain or increased drainage associated with the chronic left lateral malleolar ulcer and he continues on doxycycline for the recent coag negative Staph culture and underlying chronic osteomyelitis. He does note increased redness and some skin breakdown in the periwound area however since taking off the wound vac today. He'll be traveling for the soon and will not be able to return to clinic on his usual schedule. 08/15/16. Seen by Dr. Valdes. The patient does not report pain associated with the chronic left lateral malleolar ulcer and he continues on doxycycline for the recent coag negative Staph culture from the site and underlying chronic osteomyelitis of the lateral malleolus. He's tolerated the wound vac without difficulty. 08/12/16. Seen by Dr. Valdes. The patient does not report pain associated with the chronic left lateral malleolar ulcer and he continues on doxycycline for the recent coag negative Staph culture from the site. He's tolerated the wound vac without difficulty and his recent MRI suggests underlying osteomyelitis of the lateral malleolus. 07/31/16. Seen by Dr. Valdes. The patient does not report pain associated with the chronic left lateral malleolar ulcer and he continues on doxycycline for the recent coag negative Staph culture from the site. His MRI suggests underlying osteomyelitis of the lateral malleolus also. He does not report fevers or feeling unwell nor increased drainage from the ulcer over the past week. Of note, the ulcer's been present for about 1 year and unchanged essentially for many months. 07/24/16. Seen by Dr. Valdes. The patient does not report pain or significant drainage associated with the left lateral malleolar non-pressure ulcer over the past week. His MRI is scheduled for today to evaluate for underlying osteomyelitis. His wound culture from the last visit grew coag negative Staph and he's been applying gentamicin ointment to the ulcer bed as recommended. 07/17/16. Seen by Dr. Valdes. The patient's new to our clinic and presents with a non-healing left lateral malleolar ulcer that's been present for about one year. He does not report pain or significant drainage from the site nor fevers or feeling unwell in general. He does not have a history of diabetes nor does he report symptoms of claudication or rest pain. His most recent wound culture grew 2 species of coag negative Staph however he's not been on systemic antibiotics recently. 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 Past Medical History This information was obtained from the patient Patient has a medical history of: Vertigo Hallux valgus Monoclonal gammopathy Unspecified myalgia and myositis Familial tremor Anemia Gait ataxia Depression Pleural effusion Peripheral neuropathy Anxiety Rhinitis Gastro Esoph. Reflux Disease (GERD) Coronary Artery Disease (CAD) Chronic osteomyelitis (left lateral malleolus; treated with HBOT x2) Complaints and Symptoms This information was obtained from the patient Patient complains of: General Notes: I have reviewed and concur with the Review of Systems and Past Family Social History documents completed by the clinician, I have reviewed and concur with the Wound Assessment document completed by the clinician Integumentary (Hair/Skin/Nails): Open Sore Prior Wound History: Drainage, Erythema, Pain Patient denies complaints or symptoms related to: Cardiovascular (Central): Irregular heart beat Cardiovascular (Central/Peripheral): Intermittent Claudication, Lower extremity (leg) resting pain, Lower extremity (leg) swelling Constitutional Symptoms (General Health): Chills, Fever, Marked Weight Change Ear/Nose/Mouth/Throat: Hearing Loss / Aid Gastrointestinal (GI): Nausea / Vomiting Hematologic/Lymphatic: Bleeding / Clotting Disorders, Bleeding Tendency Musculoskeletal: Deformities, Joint Swelling Neurological: Loss of Protective Sensation Prior Wound History: Bleeding, Malodor Psychiatric: Depression, Memory Loss Respiratory: Oxygen Use, Shortness of Breath OBJECTIVE Constitutional Vital signs reviewed and noted. Well developed. Alert. Clean appearing.. Height/ Length: 74 in (187.96 cm), Weight: 220 lbs (100 kgs), BMI: 28.2, Temperature: 97.8 ?F (36.56 ? C), Pulse: 67 bpm, Respiratory Rate: 18 breaths/min, Blood Pressure: 122/76 mmHg, Pulse Oximetry: 96 %. Ears, Nose, Mouth, and Throat: Moderate hearing deficit. Respiratory: No respiratory distress. Even respirations and without use of accessory muscles.. Cardiovascular: 1+ dorsalis pedis and posterior tibial on the left. Affected extremity exhibits no peripheral edema or cyanosis, is warm, and is well perfused. Capillary refill is less than 2 seconds. Gastrointestinal (GI): Non-obese. Nondistended.. Integumentary (Hair, Skin) Mild periwound erythema with warmth. Refer to appropriate clinician wound documentation for this visit; left lateral malleolus ulcer extends to subcut with base covered with pink granulation; product intact. Wound #1 Left, Lateral Malleolus is a chronic Full Thickness Neuropathic Ulcer and has received a status of Not Healed. Subsequent wound encounter measurements are 0.2cm length x 0.3cm width x 0.2cm depth, with an area of 0.06 sq cm and a volume of 0.012 cubic cm. No tunneling has been noted. No sinus tract has been noted. No undermining has been noted. There is a scant amount of serous drainage noted which has no odor. The patient reports no wound pain due to the wound being insensate. The wound margin is rolled. Wound bed has Yes epithelialization, No eschar, Yes slough, No granulation. The periwound skin moisture is normal. The periwound skin color is normal. The periwound skin exhibited: Edema, Induration. The periwound skin did not exhibit: Brawny Induration, Excoriation, Callus, Crepitus, Fluctuance, Friable, Rash. The temperature of the periwound skin is WNL. Periwound skin does not exhibit signs or symptoms of infection. Local Pulse is Normal. Neurological: Cranial nerves grossly intact with symmetric function normal by informal observation.. ASSESSMENT Active Problems ICD-10 (Encounter Diagnosis) L97.322 - Non-pressure chronic ulcer of left ankle with fat layer exposed (Encounter Diagnosis) L03.116 - Cellulitis of left lower limb PROCEDURES Wound #1 Wound #1 (Neuropathic Ulcer) is located on the left, lateral malleolus. A Disposable Wound Vac Application < 50 Sq Cm procedure was performed for the lower left extremity by Shankar Valdes MD. A time out was conducted prior to the start of the procedure. The procedure was tolerated well. General Notes: LORNE 4x8 PLAN Wound Orders: Wound #1 Left, Lateral Malleolus Anesthetic Topical Xylocaine to wound bed. - In clinic. Cleanser Cleanse Wound: - Normal saline in clinic. May use distilled water at home. May Shower. - Please avoid getting tap water in wound. Cover while in shower. May use cast protector. Dressings Cover and secure with: - Steri strips, adaptic Negative Pressure Wound Therapy - LORNE 4x8. Please monitor device for blinking green light. If dressing loses suction attempt to reseal with tape. If unable to regain seal call clinic during business hours or remove foam dressing and cover with a new bordered foam. Additional Orders: Follow-Up Appointments Return Appointment: - - One week. Other information: If you develop fever, chills, increased pain, drainage, redness or swelling please call our office. If after hours, respond to the ER. Should you experience any significant changes in your wound(s) or have any questions regarding your home care instructions please contact the wound center @ [phone]. If after hours, contact your primary care physician or go to the hospital emergency room. Scribing Attestation I attest, as the nurse, that I scribed these orders for the physician. 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 Negative pressure wound therapy will be utilized to facilitate granulation and removal of exudate and infectious material with the goal of expediting wound healing. Also, I've cultured the ulcer and restarted Bactrim due to recurrence of cellulitis around the ulcer. If this appears to resolve by next week we'll plan on placing another Grafix skin substitute at that time. Electronic Signature(s) Signed By: Date: Shankar Valdes MD 06/17/2018 06:31:52 Entered By: Shankar Valdes on 06/17/2018 06:27:31
== END ==
PROVIDERS: PCP Family Medicine; Visit Provider Internal Medicine
DX: G90.9 Disorder of the autonomic nervous system, unspecified (principal); L97.322 Non-pressure chronic ulcer of left ankle with fat layer exposed; M65.072 Abscess of tendon sheath, left ankle and foot
CPT/HCPCS: 87070; 87075; 87077; 87186; 87205; 97607

== ENCOUNTER → 2018-06-22 14:33 | Outpatient (CLI) | payer MEDICARE, OTHER, SELFPAY ==
--- NOTE | 2018-06-22 | OV.WND_ITS ---
Progress Note Details Patient Name: Vin Avila Patient Number: [id number] PatientPatientDate: 06/22/2018 Clinician: Enedina Porras Clinician Cosigner: Ceci Villarreal Physician / Gallery Assistant: Shankar Valdes SUBJECTIVE Chief Complaint This information was obtained from the patient Wound on left lateral ankle. Allergies codeine (Severity: Severe), Augmentin (Severity: Severe) HPI This information was obtained from the patient 06/22/18. Seen by Dr. Valdes. The patient does not report pain or significant drainage associated with the chronic left lateral malleolus non-pressure ulcer since is last visit noting we placed a Grafix biologic skin substitute 2 weeks ago. He also continues on a course of Bactrim for a Stenotrophomonas and coag negative Staph positive culture and does not report adverse side effects, fevers, or other acute issues. 06/16/18. Seen by Dr. Valdes. The patient does not report pain or significant drainage associated with the chronic left lateral malleolus non-pressure ulcer since is last visit when we placed a Grafix biologic skin substitute. The nurse reports some increased periwound redness and warmth however and he recently completed a course of Bactrim for a Stenotrophomonas and coag negative Staph positive culture. 06/09/18. Seen by Dr. Valdes. The patient does not report pain or significant drainage associated with the chronic left lateral malleolus non-pressure ulcer since is last visit and he completed his course of Bactrim that was treating the recent Stenotrophomonas and coag negative Staph cultured from the ulcer without reporting adverse side effects. 05/26/18. Seen by Dr. Valdes. The patient does not report pain or significant drainage associated with the chronic left lateral malleolus non-pressure ulcer since is last visit. 05/05/18. Seen by Dr. Valdes. The patient does not report pain or significant drainage associated with the chronic left lateral malleolus non-pressure ulcer since is last visit. 04/14/18. Seen by Dr. Valdes. The patient does not report pain or significant drainage associated with the chronic left lateral malleolus non-pressure ulcer since is last visit. 03/24/18. Seen by Armin Milligan PA-C. The patient reports no increase in pain or drainage from his left ankle ulcer. 03/16/18. Seen by Dr. Valdes. The patient does not report pain or significant drainage associated with the chronic left lateral malleolus non-pressure ulcer since is last visit and his wound culture grew an intermediately resistant coag negative Staph. He's taking doxycycline which is appropriate and applying topical gentamicin to which the Staph partially resistant. 03/08/18. Seen by Dr. Valdes. The patient returns today for review of this chronic left lateral malleolus non-pressure ulcer and due to concern about increased size in periulcer redness. The patient does not report pain at the site however nor increased drainage. 02/23/18. Seen by Dr. Valdes. The patient does not report pain or increased drainage associated with chronic left lateral malleolus non pressure ulcer since his last visit however his reports some malodor when changing the dressing yesterday. His most recent wound culture rate resistant coag-negative Staph and is not currently on antibiotics. 02/04/18. Seen by Dr. Valdes. The patient does not report increased pain or drainage associated with the left lateral malleolus ulcer since his last visit. 01/21/18. Seen by Dr. Valdes. The patient does not report increased pain or drainage associated with the ulcer and they're applying topical gentamicin to treat chronic wound infection as recommended. 12/28/17. Seen by Dr. Valdes. The patient was seen by Dr. May, vascular surgery , for the chronic left lateral malleolus nonpressure ulcer and associated PAD. It was felt that any intervention would likely be equivalent and so they decided to not pursue it at this time. The patient does not report increased pain or drainage associated with the ulcer and they're applying topical gentamicin to treat chronic wound infection as recommended. 12/18/17. Seen by Dr. Valdes. The patient and his report increased drainage associated with the chronic left lateral malleolus non-pressure ulcer since his last visit. He does not report pain at the site and he's also scheduled to see vascular surgery next Thursday to evaluate his left lower leg PAD that may be contributing to the refractory nature of the ulcer. 12/11/17. Seen by Dr. Valdes. The patient and his report increased drainage associated with the chronic left lateral malleolus non-pressure ulcer since his last visit. He does not report pain at the site and he's also scheduled to see vascular surgery on December 21 to evaluate his left lower leg PAD that may be contributing to the refractory nature of the ulcer. 11/27/17. Seen by Armin Milligan PA-C. The patient reports that he has an appointment with [facility] vascular clinic to address his PAD. He reports no increase in drainage from his left lateral malleolar ulcer. 11/13/17. Seen by Dr. Valdes. The patient does not report increased pain or drainage associated with her chronic left lateral malleolus nonpressure ulcer since his last visit. 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 Of note, his study from 2016 showed 3 vessel runoff bilaterally. He has a history of chronic osteomyelitis at this ulcer site and was seen by Dr. Carol Oreilly, orthopedic therapeutic specialist, for consideration of deep debridement but was referred for the repeat Doppler prior to considering surgery. 11/06/17. Seen by Armin Milligan PA-C. The patient reports that he has his arterial doppler scheduled in [place] for next week. He reports no increase in drainage from his left lateral ulcer. 10/29/17. Seen by Armin Milligan PA-C. The patient reports no increase in drainage from his left lateral non-pressure ulcer. He has seen Dr. Marx but has not yet obtained his arterial doppler which she has ordered. 10/22/17. Seen by Dr. Valdes. The patient doesn't report pain or significant drainage associated with chronic left lateral malleolus nonpressure ulcers since last visit. He was seen by Dr. Marx who felt that prior to considering any orthopedic intervention that further vascular workup is required noting he had an MRA in September 2016 that showed a right sided moderate internal iliac stenosis however three-vessel runoff to both lower extremities.He has also completed his course of Zyvox, noting his history of refractory chronic osteomyelitis of the malleolus and recent ulcer deterioration, that was started after his last visit and does not report ever side effects. 10/15/17. Seen by Dr. Valdes. The patient does not report increased pain or drainage associated with the chronic left lateral malleolus nonpressure ulcer since his last visit. His wound culture from last visit grew only diphtheroids. He has an appointment to see Dr. Oreilly, orthopedic therapeutic specialist, next afternoon for a second opinion regarding options to heal this very refractory ulcer noting its prior history of underlying chronic osteomyelitis. 10/07/17. Seen by Dr. Valdes. The patient returns from his visit to [place] and does not report significant drainage nor pain associated with the chronic left lateral malleolus nonpressure ulcer since is last visit. He completed a course of Zyvox that was started prior to his trip and was treating cellulitis associated with the ulcer. Of note, this ulcer's remained very refractory and has been treated for underlying chronic osteomyelitis in 2017 with extended courses of antibiotics, hyperbaric oxygen therapy, and negative pressure wound therapy. 09/14/17. Seen by Dr. Valdes. The patient does not report pain associated with the chronic left lateral malleolus nonpressure ulcers since his last visit. His however feels that there is increased. His however is concerned that there is increased periulcer erythema and warmth and the patient is not currently on antibiotics. 09/08/17. Seen by Armin Milligan PA-C. The patient reports no increase in drainage from his chronic left ankle ulcer. He also wishes to discuss his chronic toenail infections, which have been present form many years and have been resistant to all forms of treatment. He is concerned the chronic nail infections could be seeding infection to his chronic ulcer. 08/31/17. Seen by Armin Milligan PA-C. The patient reports increased drainage from his left malleolar ulcer. 08/20/17. Seen by Dr. Valdes. The patient does not report pain nor significant drainage associated with the chronic left lateral malleolus nonpressure ulcer since his last visit. 08/13/17. Seen by Dr. Valdes. The patient and his feel there's some increased redness around the chronic left lateral malleolus nonpressure ulcer over the past week. He also complains of a significant increase in fatigue and feel asleep at lunch yesterday. He completed his course of Zyvox that's been treating underlying chronic osteomyelitis of the left ankle and his platelets were at 120 last week. 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 08/10/17. Seen by Dr. Valdes. The patient reports some discomfort associated with the left lateral chronic malleoli nonpressure ulcers since restarting negative pressure wound therapy with a snap wound VAC last week. He continues on Zyvox for underlying chronic osteomyelitis of the left lateral malleolus and he does not report adverse side effects however his platelets are down to 120 today from 160 previous week. 08/05/17. Seen by Dr. Valdes. The patient doesn't report pain or increased drainage associated the chronic left lateral malleolus nonpressure ulcers since last visit. He completed a course of Zyvox which is treating underlying chronic osteomyelitis on Thursday and of note his platelets were within normal limits last week. 07/29/17. Seen by Dr. Valdes. The patient does not report pain or significant drainage associated with the chronic left lateral malleolus non-pressure ulcer since his last visit and he continues on Zyvox for underlying chronic osteomyelitis without reporting adverse side effects. His recently documented thrombycytopenia improved following a one week break from using Zyvox and this was restarted due to a recurrence of inflammation, drainage, and pain at the ulcer site. His platelets are 168 today. He's also completed a total of 40 hyperbaric oxygen dives that's being administered as adjunctive therapy for chronic osteomyelitis and his MRI confirms improvement in terms of bone marrow edema. 07/24/17. Seen by Dr. Valdes. The patient does not report increased pain or drainage associated with the chronic left lateral malleolus ulcer however his feels that there is been some increased redness and warmth in the jen-ulcer area. He continues on doxycycline for underlying osteomyelitis and of note was taken off of Zyvox recently due to thrombocytopenia which appears to have now nearly resolved. His most recent wound culture was unremarkable however. 07/21/17. Seen by Armin Milligan PA-C. The patient's MRI shows improving signs of osteomyelitis. The patient notes decreased drainage from his chronic left lateral malleolus ulcer. He reports no side effects from doxycycline which he is taking for his chronic osteomyelitis. 07/17/17. Seen by Dr. aVldes. The patient does not report pain nor significant drainage associated with chronic left lateral malleolus ulcer since his last visit. He continues on Zyvox for underlying osteomyelitis without reporting adverse side effects. Of note, his most recent CBC showed his platelets decreased to 106. He is also tolerating hyperbaric oxygen therapy without difficulty but does report some significant fatigue intermittently throughout the week. He has sleep apnea and feels that he is due to have his CPAP reevaluated. He has an MRI scheduled next week as well to reevaluate the ostial myelitis. 07/14/17. Seen by Armin Milligan PA-C. The patient reports decreased pain and drainage from his left lateral malleolar ulcer. His recent X-ray shows no bone lysis consistent with osteomyelitis, however neither did his plain film which was taken in March. His previous MRI and bone scan have confirmed the diagnosis of osteomyelitis. He continues on Zyvox for his osteomyelitis. 07/09/17. Seen by Dr. Valdes. The patient does not report significant pain nor drainage associated with the chronic left lateral malleolar nonpressure ulcer and he continues on Zyvox for underlying chronic osteomyelitis without reported adverse side effects. His x-ray of the ankle is unremarkable as was his CBC except for platelets of 116. 07/06/17. Seen by Armin Milligan PA-C. The patient reports no side effects from his Zyvox, which he is taking for osteomyelitis. His left lateral malleolar ulcer has had minimal drainage and the swelling and erythema are reportedly improved. 07/03/17. Seen by Dr. Valdes. The patient has been on Zyvox for the past 7 days and does not report adverse side effects. This is treating chronic osteomyelitis of the left lateral malleolus and he reports only minimal drainage from the overlying ulcer. He is also tolerating negative pressure wound therapy without difficulty. Of note, the ulcer is smaller and less deep over the past 3 weeks and the surrounding tissue is much less swollen and erythematous since starting on Zyvox. 06/26/17. Seen by Dr. Valdes. The patient does not report increasing pain nor drainage associated with a chronic left lateral malleolus nonpressure ulcer since his last visit. She is on Bactrim and is recent wound culture grew resistant species of coag-negative staph and Corynebacterium. Based on sensitivities Zyvox is the only oral medication appropriate for management of these 2 organisms. 06/19/17. Seen by Dr. Valdes. The patient does not report pain or increased drainage associated with chronic left lateral malleolus nonpressure ulcers since his last visit. He continues on doxycycline however his recent wound culture returned with a coag negative staph resistant to doxycycline. He also continues with hyperbaric oxygen therapy to treat chronic osteomyelitis without reported any adverse side effects. 06/12/17. Seen by Dr. Valdes. The patient feels that the drainage associated with the chronic left lateral malleolus ulcer has decreased over the past few days. He does not report any associated pain either. He continues on doxycycline for underlying osteomyelitis and does not report adverse side effects. He's also completed 21 was 30 dives in the hyperbaric chamber and does not report any adverse effects. Also, his wound culture from the 09 of June again grew a diptheroids specis and has been sent for further speciation and sensitivities to help direct our antibiotic therapy. 06/09/17. Seen by Dr. Valdes. The patient feels the pain associated with the left lateral malleolus ulcer and underlying chronic osteomyelitis have improved since changing his antibiotics from clindamycin to doxycycline following his last visit. He does not report adverse side effects and his recent wound culture grew only diptheroids. 06/04/17. Seen by Dr. Valdes. The patient does not report significant pain or increased drainage associated with chronic left lateral malleolus nonpressure ulcer. He continues on clindamycin for underlying osteomyelitis of the malleolus and of note his wound culture from 2 days ago shows early growth but does not report a species yet. 06/02/17. Seen by Dr. Valdes. The patient reports some aching of the left lateral malleolus over the past week. He continues on antibiotics for chronic osteomyelitis of the ankle and does not report increased drainage from the overlying nonpressure ulcer. 05/26/17. Seen by Dr. Valdes. The patient does not report significant pain and drainage associated with left lateral malleolus ulcer since his last visit. He is tolerating HBOT as well without difficulty and does not report adverse side effects from antibiotics treating chronic osteomyelitis of the underlying malleolus. 05/21/17. Seen by Armin Milligan PA-C. The patient reports increased pain in his left lateral malleolar ulcer in the past few days. He has taken APAP in the middle of the night to treat the pain, which is unusual for him. 05/14/17. Seen by Dr. Valdes. The patient does not report significant pain or drainage associated with the refractory left lateral malleolar non-pressure ulcer since his last visit and he continues on antibiotics for associated underlying chronic osteomyelitis and HBOT without reporting adverse side effects. He also does not report fevers or adverse affects of the antibiotics. 05/06/17. Seen by Armin Milligan PA-C. The patient reports no increase in pain or drainage from his left lateral malleolar ulcer since his last evaluation. He is also here for HBOT clearance and recalls previous HBOT sessions which he completed without complication. He denies any recent eye surgeries. 04/30/17. Seen by Armin Milligan PA-C. The patient reports no change in drainage or pain from his chronic left lateral malleolar ulcer since his last evaluation. He is currently on clindamycin for chronic osteomyelitis of this area, though he reports that the pharmacy had a prescription for levaquin as well waiting for him. He has been taking both for 7 days and today is his last dose of both. 04/23/17. Seen by Dr. Valdes. The patient reports moderate pain in the lateral ankle when bearing weight along with persistent drainage from the overlying non-pressure ulcer over the past week. He's not currently on antibiotics and does not report fevers or feeling unwell in general. Of note, he's been treated with extended courses of antibiotics and hyperbaric oxygen therapy for chronic osteomyelitis of lateral malleolus at the end of 2015 and into December of 2016 with near resolution of the overlying ulcer about 6 weeks ago. He then presented with an acute deterioration of the ulcer, left lower leg cellulitis, and an MRI that suggested recurrence of osteomyelitis but did no confirm due to the fact the ulcer did not extend to the bone. 04/13/17. Seen by Armin Milligan PA-C. The patient reports that when he underwent his MRI that the compression device his foot was placed in caused significant pain to the left lateral malleolar area. In addition he noted that after the MRI it was more red, swollen and draining more than it was previously. He is currently on doxycycline for his cultured MSSA ulcer infection. Of note his MRI showed some bone marrow edema in the ulcer area but this was thought to be reactive rather than evidence of osteomyelitis. 04/08/17. Seen by Armin Milligan PA-C. The patient reports continued drainage from his left lateral malleolus ulcer and his culture did not grow significant pathologic bacteria. 03/30/17. Seen by Dr. Valdes. The patient reports increased pain and drainage associated with the chronic left lateral malleolus non-pressure ulcer starting last Thursday. He has pain when bearing weight and reports noticeable shivers and chills last night. He's currently off of antibiotics and has been treated within the past few month for chronic osteomyelitis of the malleolus with and extended course of antibiotics and hyperbaric oxygen therapy. 03/20/17. Seen by Dr. Valdes. The patient feels the drainage and pain associated with the chronic left lateral malleolar neuropathic ulcer has resolved. He continues applying topical gentamicin to the ulcer based as recommended to treat a chronic wound infection. 03/06/17. Seen by Dr. Valdes. The patient feels the drainage and pain associated with the chronic left lateral malleolar neuropathic ulcer has improved since starting to apply topical gentamicin twice daily following his last visit. His culture grew a coag negative staph. 02/27/17. Seen by Dr. Valdes. The patient reports increased pain and drainage associated with the chronic left lateral malleolar non-pressure ulcer over the past few days. They stopped applying topical antibiotic as I requested a couple of weeks ago and have been changing the dressing as recommended. 02/13/17. Seen by Dr. Valdes. The patient does not report drainage or pain associated with the chronic left lateral malleolus non-pressure ulcer over the past 2 weeks. 01/30/17. Seen by Dr. Valdes. The patient does not report pain nor significant drainage associated with a chronic left lateral malleolar non-pressure ulcers since last visit. 01/16/17. Seen by Dr. Valdes. The patient does not report pain nor significant drainage associated with a chronic left lateral malleolar non-pressure ulcers since last visit. His vision glare he reported at the last visit has not yet resolved and he's going to see his opthamologist noting this is likely a side effect of his recent hyperbaric oxygen therapy. 01/02/17. Seen by Dr. Valdes. The patient does not report pain nor significant drainage associated with a chronic left lateral malleolar nonpressure ulcers since last visit. Of note, the patient reports persistent vision glare most notable at night since completion of his hyperbaric oxygen therapy. 12/19/16. Seen by Dr. Valdes. The patient does not report increased drainage associated with the chronic left lateral malleolar nonpressure ulcer since his last visit. 12/10/16. Seen with Dr. Valdes. The patient does not report significant drainage or pain associated with the chronic left lateral malleolus nonpressure ulcer over the past week.Of note, he is no longer undergoing HBOT that while being treated he was noted to have a number of elevated blood sugars over 150 and also had considerable issues with hypoglycemia during the times. He does not currently have a diagnosis of diabetes. 12/03/16. Seen by Dr. Valdes. The patient does not report pain or drainage associated with the chronic left lateral malleolar non-pressure ulcer have been minimal since his last. 11/26/16. Seen by Dr. Valdes. The patient was here for hyperbarics today however his blood sugars were stay consistently 90 and he has been dropping by as much as 70 points during his dive sessions. 11/17/16. Seen by Dr. Valdes. The patient feels the drainage and pain associated with the chronic left lateral malleolar non-pressure ulcer have been minimal since his last visit and he continues on doxycycline and Flagyl, plus receiving HBOT, for chronic osteomyelitis of the underlying malleolus. Of note, the patient reports some weakness and loss of balance following HBOT dives but does not report other specific symptoms. 11/03/16 Seen by Armin Milligan PA-C. The patient reports no increase in pain or drainage from his left lateral malleolar non-pressure ulcer with underlying chronic osteomyelitis. He has been tolerating HBOT adjunctive therapy well and has been compliant with his dual antibiotic therapy for chronic osteomyelitis without significant adverse side-effects. 10/27/16 Seen by Armin Milligan PA-C. The patient reports no increase in drainage or pain from his chronic left lateral malleolar non-pressure ulcer. 10/21/16. Seen by Dr. Valdes. The patient feels the drainage and pain associated with the chronic left lateral malleolar non-pressure ulcer has been minimal since his last visit and he continues on doxycycline and Flagyl, plus receiving HBOT, for chronic osteomyelitis of the underlying malleolus. 10/14/16 Seen by Armin Milligan PA-C. The patient reports increased erythema in the area of his left lateral malleolar wound and increased drainage as well as pain, which he reports is a stabbing, moderate pain that does not radiate and is intermittent without any identifiable exacerbating or relieving factors. 10/07/16 Seen by Armin Milligan PA-C. The patient reports no increase in drainage from his left lateral malleolar ulcer since his last evaluation. 09/30/16 Seen by Armin Milligan PA-C. The patient's wound culture returned with a coagulase negative staph spp. that is likely resistant to the cefdinir he is taking. His ulcer of the left lateral malleolus has had stable drainage and discomfort. 09/25/16. Seen by Dr. Valdes. The patient feels the pain and periwound redness associated with the left lateral malleolar ulcer and underlying chronic osteomyelitis have nearly resolved over the past week. He also continues on doxycycline without reporting adverse side effects and he has an MRA scheduled tomorrow to evaluate for clinically significant PAD in the left leg that may be inhibiting wound healing. 09/17/16. Seen by Dr. Valdes. The patient does not report pain or drainage associated with the chronic left lateral malleolar ulcer and underlying chronic osteomyelitis. He continues on cefdinir without reporting adverse side effects and is tolerating HBOT without issue. Of note, his arterial Doppler from November shows heavy calcification within the left lower leg arteries and he reports pain in the lower leg at night that improves when he hangs his foot over the bed. His SOLITARIO performed on the left leg from November however was reported as 1.2. 09/10/16. Seen by Dr. Valdes. The patient feels the pain and drainage associated with the chronic left lateral malleolar ulcer and underlying chronic osteomyelitis have decreased since changing from doxycycline to cefdinir this past week. He's also been approved for HBOT and plans to start next Thursday. 09/03/16. Seen by Dr. Valdes. The patient reports increased pain and redness in the chronic left lateral malleolar periwound area over the past 2 days. His wound culture taken on 09/01/16 was unremarkable and he continues on doxycycline for chronic osteomyelitis of the left lateral malleolus without reporting adverse side effects. He does not report fevers or feeling unwell and has bought new shoes and cut out the margin below the ankle so as to prevent trauma to the ulcer. 09/01/16. Seen by Dr. Valdes. The staff report some increased redness and skin breakdown at the left lateral malleolar chronic ulcer site. The patient does not report pain or drainage as the ulcer and his NPWT was held over the long holiday weekend. He also continues on doxycycline for chronic osteomyelitis of the underlying malleolus. 08/22/16. Seen by Dr. Valdes. The patient does not report pain or increased drainage associated with the chronic left lateral malleolar ulcer and he continues on doxycycline for the recent coag negative Staph culture and underlying chronic osteomyelitis. He does note increased redness and some skin breakdown in the periwound area however since taking off the wound vac today. He'll be traveling for the soon and will not be able to return to clinic on his usual schedule. 08/15/16. Seen by Dr. Valdes. The patient does not report pain associated with the chronic left lateral malleolar ulcer and he continues on doxycycline for the recent coag negative Staph culture from the site and underlying chronic osteomyelitis of the lateral malleolus. He's tolerated the wound vac without difficulty. 08/12/16. Seen by Dr. Valdes. The patient does not report pain associated with the chronic left lateral malleolar ulcer and he continues on doxycycline for the recent coag negative Staph culture from the site. He's tolerated the wound vac without difficulty and his recent MRI suggests underlying osteomyelitis of the lateral malleolus. 07/31/16. Seen by Dr. Valdes. The patient does not report pain associated with the chronic left lateral malleolar ulcer and he continues on doxycycline for the recent coag negative Staph culture from the site. His MRI suggests underlying osteomyelitis of the lateral malleolus also. He does not report fevers or feeling unwell nor increased drainage from the ulcer over the past week. Of note, the ulcer's been present for about 1 year and unchanged essentially for many months. 07/24/16. Seen by Dr. Valdes. The patient does not report pain or significant drainage associated with the left lateral malleolar non-pressure ulcer over the past week. His MRI is scheduled for today to evaluate for underlying osteomyelitis. His wound culture from the last visit grew coag negative Staph and he's been applying gentamicin ointment to the ulcer bed as recommended. 07/17/16. Seen by Dr. Valdes. The patient's new to our clinic and presents with a non-healing left lateral malleolar ulcer that's been present for about one year. He does not report pain or significant drainage from the site nor fevers or feeling unwell in general. He does not have a history of diabetes nor does he report symptoms of claudication or rest pain. His most recent wound culture grew 2 species of coag negative Staph however he's not been on systemic antibiotics recently. 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 Family History This information was obtained from the patient Cancer - No History, Diabetes - No History, Heart Disease - Mother, Father, Hereditary Spherocytosis - No History, Hypertension - No History, Kidney Disease - No History, Lung Disease - No History, Mental Illness - No History, Non-contributory - No History , None - No History, Other - No History, Seizures - No History, Stroke - No History, Thyroid Problems - No History, Tuberculosis - No History Social History This information was obtained from the patient Never smoker, Caffeine Use - 1-2 sodas daily, Children - 3 children, Lives in - Private Home, Marital Status - , 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 Reflux Disease (GERD) Coronary Artery Disease (CAD) Chronic osteomyelitis (left lateral malleolus; treated with HBOT x2) Surgical History This information was obtained from the patient Patient has a surgical history of: 4 way bypass - 05/12/2014 Gallbladder Shoulder repair Back surgery Complaints and Symptoms This information was obtained from the patient Patient complains of: General Notes: I have reviewed and concur with the Review of Systems and Past Family Social History documents completed by the clinician, I have reviewed and concur with the Wound Assessment document completed by the clinician Integumentary (Hair/Skin/Nails): Open Sore Prior Wound History: Drainage, Erythema, Pain Patient denies complaints or symptoms related to: Cardiovascular (Central): Irregular heart beat Cardiovascular (Central/Peripheral): Intermittent Claudication, Lower extremity (leg) resting pain, Lower extremity (leg) swelling Constitutional Symptoms (General Health): Chills, Fever, Marked Weight Change Ear/Nose/Mouth/Throat: Hearing Loss / Aid Gastrointestinal (GI): Nausea / Vomiting Hematologic/Lymphatic: Bleeding / Clotting Disorders, Bleeding Tendency Musculoskeletal: Deformities, Joint Swelling Neurological: Loss of Protective Sensation Prior Wound History: Bleeding, Malodor Psychiatric: Depression, Memory Loss Respiratory: Oxygen Use, Shortness of Breath OBJECTIVE Constitutional Vital signs reviewed and noted. Well developed. Alert. Clean appearing.. Height/ Length: 74 in (187.96 cm), Weight: 219.5 lbs (99.77 kgs), BMI: 28.2, Temperature: 97.8 ?F ( 36.56 ?C), Pulse: 67 bpm, Respiratory Rate: 18 breaths/min, Blood Pressure: 122/78 mmHg, Pulse Oximetry: 95 %. Ears, Nose, Mouth, and Throat: Uses hearing aids. Cardiovascular: Affected extremity exhibits no peripheral edema or cyanosis, is warm, and is well perfused. Capillary refill is less than 2 seconds. Integumentary (Hair, Skin) No periwound erythema, warmth, or significant drainage. No periwound rashes appreciated or noted otherwise.. Refer to appropriate clinician wound documentation for this visit; left lower leg ulcer extends to subcut with base partially covered with pink granulation, remainder fibrin and slough. Wound #1 Left, Lateral Malleolus is a chronic Full Thickness Neuropathic Ulcer and has received a status of Not Healed. Subsequent wound encounter measurements are 0.2cm length x 0.2cm width x 0.1cm depth, with an area of 0.04 sq cm and a volume of 0.004 cubic cm. No tunneling has been noted. No sinus tract has been noted. No undermining has been noted. There is a scant amount of serous drainage noted which has no odor. The patient reports no wound pain due to the wound being insensate. The wound margin is rolled. Wound bed has Yes epithelialization, No eschar, Yes slough, No granulation. The periwound skin moisture is normal. The periwound skin color is normal. The periwound skin exhibited: Edema, Induration. The periwound skin did not exhibit: Brawny Induration, Excoriation, Callus, Crepitus, Fluctuance, Friable, Rash. The temperature of the periwound skin is WNL. Periwound skin does not exhibit signs or symptoms of infection. Local Pulse is Normal. Neurological: Cranial nerves grossly intact with symmetric function normal by informal observation.. ASSESSMENT Active Problems ICD-10 (Encounter Diagnosis) L97.322 - Non-pressure chronic ulcer of left ankle with fat layer exposed (Encounter Diagnosis) L08.89 - Other specified local infections of the skin and subcutaneous tissue PROCEDURES Wound #1 Wound #1 (Neuropathic Ulcer) is located on the left, lateral malleolus. A skin/ subcutaneous tissue level surgical debridement with a total area debrided of 0.16 sq cm was performed by Shankar Valdes MD. Dermis, Epidermis, and Subcutaneous were removed along with devitalized tissue: exudate and slough. Pain control was achieved using 4% Lido. A time out was conducted prior to the start of the procedure. No bleeding occurred. The procedure was tolerated well with a pain level of 0 throughout and a pain level of 0 following the procedure. Post Debridement Measurements: 0.4cm length x 0.4cm width x 0.3cm depth; with an area of 0.16 sq cm and a volume of 0.048 cubic cm; Wound #1 (Neuropathic Ulcer) is located on the left, lateral malleolus. A Disposable Wound Vac Application < 50 Sq Cm procedure was performed for the lower left extremity by Shankar Valdes MD. A time out was conducted prior to the start of the procedure. The procedure was tolerated well. General Notes: LORNE 4x8 Additional Information Muscle fascia or bone removed and sent to pathology?: No PLAN Wound Orders: Wound #1 Left, Lateral Malleolus Cleanser Cleanse Wound: - Normal saline in clinic. May use distilled water at home. May Shower. - Please avoid getting tap water in wound. Cover while in shower. May use cast protector. Dressings Negative Pressure Wound Therapy - LORNE 4x8. Please monitor device for blinking green light. If dressing loses suction attempt to reseal with tape. If unable to regain seal call clinic during business hours or remove foam dressing and cover with a new bordered foam. Additional Orders: Follow-Up Appointments Return Appointment: - - One week. Other information: If you develop fever, chills, increased pain, drainage, redness or swelling please call our office. If after hours, respond to the ER. Should you experience any significant changes in your wound(s) or have any questions regarding your home care instructions please contact the wound center @ [phone]. If after hours, contact your primary care physician or go to the hospital emergency room. Scribing Attestation I attest, as the nurse, that I scribed these orders for the physician. Medications prescribed: Bactrim DS - oral 800 mg-160 mg tablet twice daily for 7 days for infected ulcer starting 06/22/2018 General Notes: May place another grafix at next visit. I've reviewed the clinician's documentation and agree with the evaluation and plan as written. In addition, the patient's ulcer demonstrates evidence of non-viable devitalized tissue which will continue to benefit from sharp debridement to help promote granulation and expedite healing. Negative pressure wound therapy will be utilized to facilitate granulation and removal of exudate and infectious material with the goal of expediting wound healing. Also, I'll continue another week of Bactrim and we'll consider placing another Grafix biologic skin substitute at his next visit. Electronic Signature(s) Signed By: Date: Shankar Valdes MD 07/13/2018 08:43:34 Entered By: Shankar Valdes on 06/24/2018 15:37:36
== END ==
PROVIDERS: PCP Family Medicine; Visit Provider Internal Medicine
DX: G90.9 Disorder of the autonomic nervous system, unspecified (principal); L97.322 Non-pressure chronic ulcer of left ankle with fat layer exposed; L08.89 Other specified local infections of the skin and subcutaneous tissue
CPT/HCPCS: 11042; 97607

== ENCOUNTER → 2018-06-29 10:59 | Outpatient (CLI) | payer MEDICARE, OTHER, SELFPAY ==
--- NOTE | 2018-06-29 | OV.WND_ITS ---
Progress Note Details Patient Name: Vin Avila Patient Number: [id number] PatientPatientDate: 06/29/2018 Clinician: Enedina Porras Clinician Cosigner: Ceci Villarreal Physician / Central Processing Technician: Shankar Valdes SUBJECTIVE Chief Complaint This information was obtained from the patient Wound on left lateral ankle. Allergies codeine (Severity: Severe), Augmentin (Severity: Severe) HPI This information was obtained from the patient 06/29/18. Seen by Dr. Valdes. The patient does not report pain or significant drainage associated with the chronic left lateral malleolus non-pressure ulcer since is last and he continues on Bactrim for refractory and recurrent cellulitis associated with the ulcer. 06/22/18. Seen by Dr. Valdes. The patient does not report pain or significant drainage associated with the chronic left lateral malleolus non-pressure ulcer since is last visit noting we placed a [employer]fix biologic skin substitute 2 weeks ago. He also continues on a course of Bactrim for a Stenotrophomonas and coag negative Staph positive culture and does not report adverse side effects, fevers, or other acute issues. 06/16/18. Seen by Dr. Valdes. The patient does not report pain or significant drainage associated with the chronic left lateral malleolus non-pressure ulcer since is last visit when we placed a [employer] biologic skin substitute. The nurse reports some increased periwound redness and warmth however and he recently completed a course of Bactrim for a Stenotrophomonas and coag negative Staph positive culture. 06/09/18. Seen by Dr. Valdes. The patient does not report pain or significant drainage associated with the chronic left lateral malleolus non-pressure ulcer since is last visit and he completed his course of Bactrim that was treating the recent Stenotrophomonas and coag negative Staph cultured from the ulcer without reporting adverse side effects. 05/26/18. Seen by Dr. Valdes. The patient does not report pain or significant drainage associated with the chronic left lateral malleolus non-pressure ulcer since is last visit. 05/05/18. Seen by Dr. Valdes. The patient does not report pain or significant drainage associated with the chronic left lateral malleolus non-pressure ulcer since is last visit. 04/14/18. Seen by Dr. Valdes. The patient does not report pain or significant drainage associated with the chronic left lateral malleolus non-pressure ulcer since is last visit. 03/24/18. Seen by Armin Milligan PA-C. The patient reports no increase in pain or drainage from his left ankle ulcer. 03/16/18. Seen by Dr. Valdes. The patient does not report pain or significant drainage associated with the chronic left lateral malleolus non-pressure ulcer since is last visit and his wound culture grew an intermediately resistant coag negative Staph. He's taking doxycycline which is appropriate and applying topical gentamicin to which the Staph partially resistant. 03/08/18. Seen by Dr. Valdes. The patient returns today for review of this chronic left lateral malleolus non-pressure ulcer and due to concern about increased size in periulcer redness. The patient does not report pain at the site however nor increased drainage. 02/23/18. Seen by Dr. Valdes. The patient does not report pain or increased drainage associated with chronic left lateral malleolus non pressure ulcer since his last visit however his reports some malodor when changing the dressing yesterday. His most recent wound culture rate resistant coag-negative Staph and is not currently on antibiotics. 02/04/18. Seen by Dr. Valdes. The patient does not report increased pain or drainage associated with the left lateral malleolus ulcer since his last visit. 01/21/18. Seen by Dr. Valdes. The patient does not report increased pain or drainage associated with the ulcer and they're applying topical gentamicin to treat chronic wound infection as recommended. 12/28/17. Seen by Dr. Valdes. The patient was seen by Dr. May, vascular surgery , for the chronic left lateral malleolus nonpressure ulcer and associated PAD. It was felt that any intervention would likely be equivalent and so they decided to not pursue it at this time. The patient does not report increased pain or drainage associated with the ulcer and they're applying topical gentamicin to treat chronic wound infection as recommended. 12/18/17. Seen by Dr. Valdes. The patient and his report increased drainage associated with the chronic left lateral malleolus non-pressure ulcer since his last visit. He does not report pain at the site and he's also scheduled to see vascular surgery next Thursday to evaluate his left lower leg PAD that may be contributing to the refractory nature of the ulcer. 12/11/17. Seen by Dr. Valdes. The patient and his report increased drainage associated with the chronic left lateral malleolus non-pressure ulcer since his last visit. He does not report pain at the site and he's also scheduled to see vascular surgery on December 21 to evaluate his left lower leg PAD that may be contributing to the refractory nature of the ulcer. 11/27/17. Seen by Armin Milligan PA-C. The patient reports that he has an appointment with [facility] vascular clinic to address his PAD. He reports no increase in drainage from his left lateral malleolar ulcer. 11/13/17. Seen by Dr. Valdes. The patient does not report increased pain or drainage associated with her chronic left lateral malleolus nonpressure ulcer since his last visit. 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 Of note, his study from 2016 showed 3 vessel runoff bilaterally. He has a history of chronic osteomyelitis at this ulcer site and was seen by Dr. Carol Oreilly, orthopedic forestry biology specialist, for consideration of deep debridement but was referred for the repeat Doppler prior to considering surgery. 11/06/17. Seen by Armin Milligan PA-C. The patient reports that he has his arterial doppler scheduled in [place] for next week. He reports no increase in drainage from his left lateral ulcer. 10/29/17. Seen by Armin Milligan PA-C. The patient reports no increase in drainage from his left lateral non-pressure ulcer. He has seen Dr. Marx but has not yet obtained his arterial doppler which she has ordered. 10/22/17. Seen by Dr. Valdes. The patient doesn't report pain or significant drainage associated with chronic left lateral malleolus nonpressure ulcers since last visit. He was seen by Dr. Marx who felt that prior to considering any orthopedic intervention that further vascular workup is required noting he had an MRA in September 2016 that showed a right sided moderate internal iliac stenosis however three-vessel runoff to both lower extremities.He has also completed his course of Zyvox, noting his history of refractory chronic osteomyelitis of the malleolus and recent ulcer deterioration, that was started after his last visit and does not report ever side effects. 10/15/17. Seen by Dr. Valdes. The patient does not report increased pain or drainage associated with the chronic left lateral malleolus nonpressure ulcer since his last visit. His wound culture from last visit grew only diphtheroids. He has an appointment to see Dr. Oreilly, orthopedic forestry biology specialist, next afternoon for a second opinion regarding options to heal this very refractory ulcer noting its prior history of underlying chronic osteomyelitis. 10/07/17. Seen by Dr. Valdes. The patient returns from his visit to [place] and does not report significant drainage nor pain associated with the chronic left lateral malleolus nonpressure ulcer since is last visit. He completed a course of Zyvox that was started prior to his trip and was treating cellulitis associated with the ulcer. Of note, this ulcer's remained very refractory and has been treated for underlying chronic osteomyelitis in 2017 with extended courses of antibiotics, hyperbaric oxygen therapy, and negative pressure wound therapy. 09/14/17. Seen by Dr. Valdes. The patient does not report pain associated with the chronic left lateral malleolus nonpressure ulcers since his last visit. His however feels that there is increased. His however is concerned that there is increased periulcer erythema and warmth and the patient is not currently on antibiotics. 09/08/17. Seen by Armin Milligan PA-C. The patient reports no increase in drainage from his chronic left ankle ulcer. He also wishes to discuss his chronic toenail infections, which have been present form many years and have been resistant to all forms of treatment. He is concerned the chronic nail infections could be seeding infection to his chronic ulcer. 08/31/17. Seen by Armin Milligan PA-C. The patient reports increased drainage from his left malleolar ulcer. 08/20/17. Seen by Dr. Valdes. The patient does not report pain nor significant drainage associated with the chronic left lateral malleolus nonpressure ulcer since his last visit. 08/13/17. Seen by Dr. Valdes. The patient and his feel there's some increased redness around the chronic left lateral malleolus nonpressure ulcer over the past week. He also complains of a significant increase in fatigue and feel asleep at lunch yesterday. He completed his course of Zyvox that's been treating underlying chronic osteomyelitis of the left ankle and his platelets were at 120 last week. 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 08/10/17. Seen by Dr. Valdes. The patient reports some discomfort associated with the left lateral chronic malleoli nonpressure ulcers since restarting negative pressure wound therapy with a snap wound VAC last week. He continues on Zyvox for underlying chronic osteomyelitis of the left lateral malleolus and he does not report adverse side effects however his platelets are down to 120 today from 160 previous week. 08/05/17. Seen by Dr. Valdes. The patient doesn't report pain or increased drainage associated the chronic left lateral malleolus nonpressure ulcers since last visit. He completed a course of Zyvox which is treating underlying chronic osteomyelitis on Thursday and of note his platelets were within normal limits last week. 07/29/17. Seen by Dr. Valdes. The patient does not report pain or significant drainage associated with the chronic left lateral malleolus non-pressure ulcer since his last visit and he continues on Zyvox for underlying chronic osteomyelitis without reporting adverse side effects. His recently documented thrombycytopenia improved following a one week break from using Zyvox and this was restarted due to a recurrence of inflammation, drainage, and pain at the ulcer site. His platelets are 168 today. He's also completed a total of 40 hyperbaric oxygen dives that's being administered as adjunctive therapy for chronic osteomyelitis and his MRI confirms improvement in terms of bone marrow edema. 07/24/17. Seen by Dr. Valdes. The patient does not report increased pain or drainage associated with the chronic left lateral malleolus ulcer however his feels that there is been some increased redness and warmth in the jen-ulcer area. He continues on doxycycline for underlying osteomyelitis and of note was taken off of Zyvox recently due to thrombocytopenia which appears to have now nearly resolved. His most recent wound culture was unremarkable however. 07/21/17. Seen by Armin Milligan PA-C. The patient's MRI shows improving signs of osteomyelitis. The patient notes decreased drainage from his chronic left lateral malleolus ulcer. He reports no side effects from doxycycline which he is taking for his chronic osteomyelitis. 07/17/17. Seen by Dr. Valdes. The patient does not report pain nor significant drainage associated with chronic left lateral malleolus ulcer since his last visit. He continues on Zyvox for underlying osteomyelitis without reporting adverse side effects. Of note, his most recent CBC showed his platelets decreased to 106. He is also tolerating hyperbaric oxygen therapy without difficulty but does report some significant fatigue intermittently throughout the week. He has sleep apnea and feels that he is due to have his CPAP reevaluated. He has an MRI scheduled next week as well to reevaluate the ostial myelitis. 07/14/17. Seen by Armin Milligan PA-C. The patient reports decreased pain and drainage from his left lateral malleolar ulcer. His recent X-ray shows no bone lysis consistent with osteomyelitis, however neither did his plain film which was taken in March. His previous MRI and bone scan have confirmed the diagnosis of osteomyelitis. He continues on Zyvox for his osteomyelitis. 07/09/17. Seen by Dr. Valdes. The patient does not report significant pain nor drainage associated with the chronic left lateral malleolar nonpressure ulcer and he continues on Zyvox for underlying chronic osteomyelitis without reported adverse side effects. His x-ray of the ankle is unremarkable as was his CBC except for platelets of 116. 07/06/17. Seen by Armin Milligan PA-C. The patient reports no side effects from his Zyvox, which he is taking for osteomyelitis. His left lateral malleolar ulcer has had minimal drainage and the swelling and erythema are reportedly improved. 07/03/17. Seen by Dr. Valdes. The patient has been on Zyvox for the past 7 days and does not report adverse side effects. This is treating chronic osteomyelitis of the left lateral malleolus and he reports only minimal drainage from the overlying ulcer. He is also tolerating negative pressure wound therapy without difficulty. Of note, the ulcer is smaller and less deep over the past 3 weeks and the surrounding tissue is much less swollen and erythematous since starting on Zyvox. 06/26/17. Seen by Dr. Valdes. The patient does not report increasing pain nor drainage associated with a chronic left lateral malleolus nonpressure ulcer since his last visit. She is on Bactrim and is recent wound culture grew resistant species of coag-negative staph and Corynebacterium. Based on sensitivities Zyvox is the only oral medication appropriate for management of these 2 organisms. 06/19/17. Seen by Dr. Valdes. The patient does not report pain or increased drainage associated with chronic left lateral malleolus nonpressure ulcers since his last visit. He continues on doxycycline however his recent wound culture returned with a coag negative staph resistant to doxycycline. He also continues with hyperbaric oxygen therapy to treat chronic osteomyelitis without reported any adverse side effects. 06/12/17. Seen by Dr. Valdes. The patient feels that the drainage associated with the chronic left lateral malleolus ulcer has decreased over the past few days. He does not report any associated pain either. He continues on doxycycline for underlying osteomyelitis and does not report adverse side effects. He's also completed 21 was 30 dives in the hyperbaric chamber and does not report any adverse effects. Also, his wound culture from the 09 of June again grew a diptheroids specis and has been sent for further speciation and sensitivities to help direct our antibiotic therapy. 06/09/17. Seen by Dr. Valdes. The patient feels the pain associated with the left lateral malleolus ulcer and underlying chronic osteomyelitis have improved since changing his antibiotics from clindamycin to doxycycline following his last visit. He does not report adverse side effects and his recent wound culture grew only diptheroids. 06/04/17. Seen by Dr. Valdes. The patient does not report significant pain or increased drainage associated with chronic left lateral malleolus nonpressure ulcer. He continues on clindamycin for underlying osteomyelitis of the malleolus and of note his wound culture from 2 days ago shows early growth but does not report a species yet. 06/02/17. Seen by Dr. Valdes. The patient reports some aching of the left lateral malleolus over the past week. He continues on antibiotics for chronic osteomyelitis of the ankle and does not report increased drainage from the overlying nonpressure ulcer. 05/26/17. Seen by Dr. Valdes. The patient does not report significant pain and drainage associated with left lateral malleolus ulcer since his last visit. He is tolerating HBOT as well without difficulty and does not report adverse side effects from antibiotics treating chronic osteomyelitis of the underlying malleolus. 05/21/17. Seen by Armin Milligan PA-C. The patient reports increased pain in his left lateral malleolar ulcer in the past few days. He has taken APAP in the middle of the night to treat the pain, which is unusual for him. 05/14/17. Seen by Dr. Valdes. The patient does not report significant pain or drainage associated with the refractory left lateral malleolar non-pressure ulcer since his last visit and he continues on antibiotics for associated underlying chronic osteomyelitis and HBOT without reporting adverse side effects. He also does not report fevers or adverse affects of the antibiotics. 05/06/17. Seen by Armin Milligan PA-C. The patient reports no increase in pain or drainage from his left lateral malleolar ulcer since his last evaluation. He is also here for HBOT clearance and recalls previous HBOT sessions which he completed without complication. He denies any recent eye surgeries. 04/30/17. Seen by Armin Milligan PA-C. The patient reports no change in drainage or pain from his chronic left lateral malleolar ulcer since his last evaluation. He is currently on clindamycin for chronic osteomyelitis of this area, though he reports that the pharmacy had a prescription for levaquin as well waiting for him. He has been taking both for 7 days and today is his last dose of both. 04/23/17. Seen by Dr. Valdes. The patient reports moderate pain in the lateral ankle when bearing weight along with persistent drainage from the overlying non-pressure ulcer over the past week. He's not currently on antibiotics and does not report fevers or feeling unwell in general. Of note, he's been treated with extended courses of antibiotics and hyperbaric oxygen therapy for chronic osteomyelitis of lateral malleolus at the end of 2015 and into December of 2016 with near resolution of the overlying ulcer about 6 weeks ago. He then presented with an acute deterioration of the ulcer, left lower leg cellulitis, and an MRI that suggested recurrence of osteomyelitis but did no confirm due to the fact the ulcer did not extend to the bone. 04/13/17. Seen by Armin Milligan PA-C. The patient reports that when he underwent his MRI that the compression device his foot was placed in caused significant pain to the left lateral malleolar area. In addition he noted that after the MRI it was more red, swollen and draining more than it was previously. He is currently on doxycycline for his cultured MSSA ulcer infection. Of note his MRI showed some bone marrow edema in the ulcer area but this was thought to be reactive rather than evidence of osteomyelitis. 04/08/17. Seen by Armin Milligan PA-C. The patient reports continued drainage from his left lateral malleolus ulcer and his culture did not grow significant pathologic bacteria. 03/30/17. Seen by Dr. Valdes. The patient reports increased pain and drainage associated with the chronic left lateral malleolus non-pressure ulcer starting last Thursday. He has pain when bearing weight and reports noticeable shivers and chills last night. He's currently off of antibiotics and has been treated within the past few month for chronic osteomyelitis of the malleolus with and extended course of antibiotics and hyperbaric oxygen therapy. 03/20/17. Seen by Dr. Valdes. The patient feels the drainage and pain associated with the chronic left lateral malleolar neuropathic ulcer has resolved. He continues applying topical gentamicin to the ulcer based as recommended to treat a chronic wound infection. 03/06/17. Seen by Dr. Valdes. The patient feels the drainage and pain associated with the chronic left lateral malleolar neuropathic ulcer has improved since starting to apply topical gentamicin twice daily following his last visit. His culture grew a coag negative staph. 02/27/17. Seen by Dr. Valdes. The patient reports increased pain and drainage associated with the chronic left lateral malleolar non-pressure ulcer over the past few days. They stopped applying topical antibiotic as I requested a couple of weeks ago and have been changing the dressing as recommended. 02/13/17. Seen by Dr. Valdes. The patient does not report drainage or pain associated with the chronic left lateral malleolus non-pressure ulcer over the past 2 weeks. 01/30/17. Seen by Dr. Valdes. The patient does not report pain nor significant drainage associated with a chronic left lateral malleolar non-pressure ulcers since last visit. 01/16/17. Seen by Dr. Valdes. The patient does not report pain nor significant drainage associated with a chronic left lateral malleolar non-pressure ulcers since last visit. His vision glare he reported at the last visit has not yet resolved and he's going to see his opthamologist noting this is likely a side effect of his recent hyperbaric oxygen therapy. 01/02/17. Seen by Dr. Valdes. The patient does not report pain nor significant drainage associated with a chronic left lateral malleolar nonpressure ulcers since last visit. Of note, the patient reports persistent vision glare most notable at night since completion of his hyperbaric oxygen therapy. 12/19/16. Seen by Dr. Valdes. The patient does not report increased drainage associated with the chronic left lateral malleolar nonpressure ulcer since his last visit. 12/10/16. Seen with Dr. Valdes. The patient does not report significant drainage or pain associated with the chronic left lateral malleolus nonpressure ulcer over the past week.Of note, he is no longer undergoing HBOT that while being treated he was noted to have a number of elevated blood sugars over 150 and also had considerable issues with hypoglycemia during the times. He does not currently have a diagnosis of diabetes. 12/03/16. Seen by Dr. Valdes. The patient does not report pain or drainage associated with the chronic left lateral malleolar non-pressure ulcer have been minimal since his last. 11/26/16. Seen by Dr. Valdes. The patient was here for hyperbarics today however his blood sugars were stay consistently 90 and he has been dropping by as much as 70 points during his dive sessions. 11/17/16. Seen by Dr. Valdes. The patient feels the drainage and pain associated with the chronic left lateral malleolar non-pressure ulcer have been minimal since his last visit and he continues on doxycycline and Flagyl, plus receiving HBOT, for chronic osteomyelitis of the underlying malleolus. Of note, the patient reports some weakness and loss of balance following HBOT dives but does not report other specific symptoms. 11/03/16 Seen by Armin Milligan PA-C. The patient reports no increase in pain or drainage from his left lateral malleolar non-pressure ulcer with underlying chronic osteomyelitis. He has been tolerating HBOT adjunctive therapy well and has been compliant with his dual antibiotic therapy for chronic osteomyelitis without significant adverse side-effects. 10/27/16 Seen by Armin Milligan PA-C. The patient reports no increase in drainage or pain from his chronic left lateral malleolar non-pressure ulcer. 10/21/16. Seen by Dr. Valdes. The patient feels the drainage and pain associated with the chronic left lateral malleolar non-pressure ulcer has been minimal since his last visit and he continues on doxycycline and Flagyl, plus receiving HBOT, for chronic osteomyelitis of the underlying malleolus. 10/14/16 Seen by Armin Milligan PA-C. The patient reports increased erythema in the area of his left lateral malleolar wound and increased drainage as well as pain, which he reports is a stabbing, moderate pain that does not radiate and is intermittent without any identifiable exacerbating or relieving factors. 10/07/16 Seen by Armin Milligan PA-C. The patient reports no increase in drainage from his left lateral malleolar ulcer since his last evaluation. 09/30/16 Seen by Armin Milligan PA-C. The patient's wound culture returned with a coagulase negative staph spp. that is likely resistant to the cefdinir he is taking. His ulcer of the left lateral malleolus has had stable drainage and discomfort. 09/25/16. Seen by Dr. Valdes. The patient feels the pain and periwound redness associated with the left lateral malleolar ulcer and underlying chronic osteomyelitis have nearly resolved over the past week. He also continues on doxycycline without reporting adverse side effects and he has an MRA scheduled tomorrow to evaluate for clinically significant PAD in the left leg that may be inhibiting wound healing. 09/17/16. Seen by Dr. Valdes. The patient does not report pain or drainage associated with the chronic left lateral malleolar ulcer and underlying chronic osteomyelitis. He continues on cefdinir without reporting adverse side effects and is tolerating HBOT without issue. Of note, his arterial Doppler from November shows heavy calcification within the left lower leg arteries and he reports pain in the lower leg at night that improves when he hangs his foot over the bed. His SOLITARIO performed on the left leg from November however was reported as 1.2. 09/10/16. Seen by Dr. Valdes. The patient feels the pain and drainage associated with the chronic left lateral malleolar ulcer and underlying chronic osteomyelitis have decreased since changing from doxycycline to cefdinir this past week. He's also been approved for HBOT and plans to start next Thursday. 09/03/16. Seen by Dr. Valdes. The patient reports increased pain and redness in the chronic left lateral malleolar periwound area over the past 2 days. His wound culture taken on 09/01/16 was unremarkable and he continues on doxycycline for chronic osteomyelitis of the left lateral malleolus without reporting adverse side effects. He does not report fevers or feeling unwell and has bought new shoes and cut out the margin below the ankle so as to prevent trauma to the ulcer. 09/01/16. Seen by Dr. Valdes. The staff report some increased redness and skin breakdown at the left lateral malleolar chronic ulcer site. The patient does not report pain or drainage as the ulcer and his NPWT was held over the long holiday weekend. He also continues on doxycycline for chronic osteomyelitis of the underlying malleolus. 08/22/16. Seen by Dr. Valdes. The patient does not report pain or increased drainage associated with the chronic left lateral malleolar ulcer and he continues on doxycycline for the recent coag negative Staph culture and underlying chronic osteomyelitis. He does note increased redness and some skin breakdown in the periwound area however since taking off the wound vac today. He'll be traveling for the soon and will not be able to return to clinic on his usual schedule. 08/15/16. Seen by Dr. Valdes. The patient does not report pain associated with the chronic left lateral malleolar ulcer and he continues on doxycycline for the recent coag negative Staph culture from the site and underlying chronic osteomyelitis of the lateral malleolus. He's tolerated the wound vac without difficulty. 08/12/16. Seen by Dr. Valdes. The patient does not report pain associated with the chronic left lateral malleolar ulcer and he continues on doxycycline for the recent coag negative Staph culture from the site. He's tolerated the wound vac without difficulty and his recent MRI suggests underlying osteomyelitis of the lateral malleolus. 07/31/16. Seen by Dr. Valdes. The patient does not report pain associated with the chronic left lateral malleolar ulcer and he continues on doxycycline for the recent coag negative Staph culture from the site. His MRI suggests underlying osteomyelitis of the lateral malleolus also. He does not report fevers or feeling unwell nor increased drainage from the ulcer over the past week. Of note, the ulcer's been present for about 1 year and unchanged essentially for many months. 07/24/16. Seen by Dr. Valdes. The patient does not report pain or significant drainage associated with the left lateral malleolar non-pressure ulcer over the past week. His MRI is scheduled for today to evaluate for underlying osteomyelitis. His wound culture from the last visit grew coag negative Staph and he's been applying gentamicin ointment to the ulcer bed as recommended. 07/17/16. Seen by Dr. Valdes. The patient's new to our clinic and presents with a non-healing left lateral malleolar ulcer that's been present for about one year. He does not report pain or significant drainage from the site nor fevers or feeling unwell in general. He does not have a history of diabetes nor does he report symptoms of claudication or rest pain. His most recent wound culture grew 2 species of coag negative Staph however he's not been on systemic antibiotics recently. 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 Past Medical History This information was obtained from the patient Patient has a medical history of: Vertigo Hallux valgus Monoclonal gammopathy Unspecified myalgia and myositis Familial tremor Anemia Gait ataxia Depression Pleural effusion Peripheral neuropathy Anxiety Rhinitis Gastro Esoph. Reflux Disease (GERD) Coronary Artery Disease (CAD) Chronic osteomyelitis (left lateral malleolus; treated with HBOT x2) Complaints and Symptoms This information was obtained from the patient Patient complains of: General Notes: I have reviewed and concur with the Review of Systems and Past Family Social History documents completed by the clinician, I have reviewed and concur with the Wound Assessment document completed by the clinician Integumentary (Hair/Skin/Nails): Open Sore Prior Wound History: Drainage, Erythema, Pain Patient denies complaints or symptoms related to: Cardiovascular (Central): Irregular heart beat Cardiovascular (Central/Peripheral): Intermittent Claudication, Lower extremity (leg) resting pain, Lower extremity (leg) swelling Constitutional Symptoms (General Health): Chills, Fever, Marked Weight Change Ear/Nose/Mouth/Throat: Hearing Loss / Aid Gastrointestinal (GI): Nausea / Vomiting Hematologic/Lymphatic: Bleeding / Clotting Disorders, Bleeding Tendency Musculoskeletal: Deformities, Joint Swelling Neurological: Loss of Protective Sensation Prior Wound History: Bleeding, Malodor Psychiatric: Depression, Memory Loss Respiratory: Oxygen Use, Shortness of Breath OBJECTIVE Constitutional Vital signs reviewed and noted. Well developed. Alert. Clean appearing.. Height/ Length: 74 in (187.96 cm), Weight: 219.5 lbs (99.77 kgs), BMI: 28.2, Temperature: 97.7 ?F ( 36.5 ?C), Pulse: 70 bpm, Respiratory Rate: 18 breaths/min, Blood Pressure: 134/80 mmHg, Pulse Oximetry: 98 %. Ears, Nose, Mouth, and Throat: Moderate hearing deficit. Respiratory: No respiratory distress. Even respirations and without use of accessory muscles.. Integumentary (Hair, Skin) Mild periwound erythema without warmth. Refer to appropriate clinician wound documentation for this visit; left laterall malleolus ulcer extends to subcut with base partially covered with pink granulation, remainder fibrin and slough. Wound #1 Left, Lateral Malleolus is a chronic Full Thickness Neuropathic Ulcer and has received a status of Not Healed. Subsequent wound encounter measurements are 0.1cm length x 0.1cm width x 0.1cm depth, with an area of 0.01 sq cm and a volume of 0.001 cubic cm. No tunneling has been noted. No sinus tract has been noted. No undermining has been noted. There is a scant amount of serous drainage noted which has no odor. The patient reports no wound pain due to the wound being insensate. The wound margin is rolled. Wound bed has Yes epithelialization, No eschar, Yes slough, No granulation. The periwound skin moisture is normal. The periwound skin color is normal. The periwound skin exhibited: Edema, Induration. The periwound skin did not exhibit: Brawny Induration, Excoriation, Callus, Crepitus, Fluctuance, Friable, Rash. The temperature of the periwound skin is WNL. Periwound skin does not exhibit signs or symptoms of infection. Local Pulse is Normal. Neurological: Cranial nerves grossly intact with symmetric function normal by informal observation.. ASSESSMENT Active Problems ICD-10 (Encounter Diagnosis) L97.322 - Non-pressure chronic ulcer of left ankle with fat layer exposed (Encounter Diagnosis) L03.116 - Cellulitis of left lower limb PROCEDURES Wound #1 Wound #1 (Neuropathic Ulcer) is located on the left, lateral malleolus. A Disposable Wound Vac Application < 50 Sq Cm procedure was performed for the lower left extremity by Shankar Valdes MD. A time out was conducted prior to the start of the procedure. The procedure was tolerated well. General Notes: LORNE 4x8 PLAN Wound Orders: Wound #1 Left, Lateral Malleolus Cleanser Cleanse Wound: - Normal saline in clinic. May use distilled water at home. May Shower. - Please avoid getting tap water in wound. Cover while in shower. May use cast protector. Dressings Negative Pressure Wound Therapy - LORNE 4x8. Please monitor device for blinking green light. If dressing loses suction attempt to reseal with tape. If unable to regain seal call clinic during business hours or remove foam dressing and cover with a new bordered foam. Additional Orders: Follow-Up Appointments Return Appointment: - - One week. Other information: If you develop fever, chills, increased pain, drainage, redness or swelling please call our office. If after hours, respond to the ER. Should you experience any significant changes in your wound(s) or have any questions regarding your home care instructions please contact the wound center @ [phone]. If after hours, contact your primary care physician or go to the hospital emergency room. Scribing Attestation I attest, as the nurse, that I scribed these orders for the physician. Laboratory: Culture Wound Medications prescribed: Bactrim DS - oral 800 mg-160 mg tablet twice daily for 7 days for cellulitis starting 06/29/2018 General Notes: Please picking tech antibiotics and take as prescribed. Negative pressure wound therapy will be utilized to facilitate granulation and removal of exudate and infectious material with the goal of expediting wound healing. Electronic Signature(s) Signed By: Date: Shankar Valdes MD 06/30/2018 13:52:56 Entered By: Shankar Valdes on 06/30/2018 12:42:48
== END ==
PROVIDERS: PCP Family Medicine; Visit Provider Internal Medicine
DX: L97.322 Non-pressure chronic ulcer of left ankle with fat layer exposed (principal); L03.116 Cellulitis of left lower limb
CPT/HCPCS: 87070; 87075; 87077; 87186; 87205; 97607

== ENCOUNTER → 2018-07-06 13:04 | Outpatient (CLI) | payer MEDICARE, OTHER, SELFPAY ==
--- NOTE | 2018-07-06 | OV.WND_ITS ---
Progress Note Details Patient Name: Vin Avila Patient Number: [id number] PatientPatientDate: 07/06/2018 Clinician: Caryn Baugh Clinician Cosigner: Ceci Villarreal Physician / Rec Therapist: Shankar Valdes SUBJECTIVE Chief Complaint This information was obtained from the patient Wound on left lateral ankle. Allergies codeine (Severity: Severe), Augmentin (Severity: Severe) HPI This information was obtained from the patient 07/06/18. Seen by Dr. Valdes. The patient does not report pain or significant drainage associated with the chronic left lateral malleolus non-pressure ulcer since is last visit and he has one more day of Bactrim that's treating the refractory and recurrent cellulitis associated with the ulcer and the recent Stenotrophomonas positive culture. 06/29/18. Seen by Dr. Valdes. The patient does not report pain or significant drainage associated with the chronic left lateral malleolus non-pressure ulcer since is last visit and he continues on Bactrim for refractory and recurrent cellulitis associated with the ulcer. 06/22/18. Seen by Dr. Valdes. The patient does not report pain or significant drainage associated with the chronic left lateral malleolus non-pressure ulcer since is last visit noting we placed a [employer] biologic skin substitute 2 weeks ago. He also continues on a course of Bactrim for a Stenotrophomonas and coag negative Staph positive culture and does not report adverse side effects, fevers, or other acute issues. 06/16/18. Seen by Dr. Valdes. The patient does not report pain or significant drainage associated with the chronic left lateral malleolus non-pressure ulcer since is last visit when we placed a [employer] biologic skin substitute. The nurse reports some increased periwound redness and warmth however and he recently completed a course of Bactrim for a Stenotrophomonas and coag negative Staph positive culture. 06/09/18. Seen by Dr. Valdes. The patient does not report pain or significant drainage associated with the chronic left lateral malleolus non-pressure ulcer since is last visit and he completed his course of Bactrim that was treating the recent Stenotrophomonas and coag negative Staph cultured from the ulcer without reporting adverse side effects. 05/26/18. Seen by Dr. Valdes. The patient does not report pain or significant drainage associated with the chronic left lateral malleolus non-pressure ulcer since is last visit. 05/05/18. Seen by Dr. Valdes. The patient does not report pain or significant drainage associated with the chronic left lateral malleolus non-pressure ulcer since is last visit. 04/14/18. Seen by Dr. Valdes. The patient does not report pain or significant drainage associated with the chronic left lateral malleolus non-pressure ulcer since is last visit. 03/24/18. Seen by Armin Milligan PA-C. The patient reports no increase in pain or drainage from his left ankle ulcer. 03/16/18. Seen by Dr. Valdes. The patient does not report pain or significant drainage associated with the chronic left lateral malleolus non-pressure ulcer since is last visit and his wound culture grew an intermediately resistant coag negative Staph. He's taking doxycycline which is appropriate and applying topical gentamicin to which the Staph partially resistant. 03/08/18. Seen by Dr. Valdes. The patient returns today for review of this chronic left lateral malleolus non-pressure ulcer and due to concern about increased size in periulcer redness. The patient does not report pain at the site however nor increased drainage. 02/23/18. Seen by Dr. Valdes. The patient does not report pain or increased drainage associated with chronic left lateral malleolus non pressure ulcer since his last visit however his reports some malodor when changing the dressing yesterday. His most recent wound culture rate resistant coag-negative Staph and is not currently on antibiotics. 02/04/18. Seen by Dr. Valdes. The patient does not report increased pain or drainage associated with the left lateral malleolus ulcer since his last visit. 01/21/18. Seen by Dr. Valdes. The patient does not report increased pain or drainage associated with the ulcer and they're applying topical gentamicin to treat chronic wound infection as recommended. 12/28/17. Seen by Dr. Valdes. The patient was seen by Dr. May, vascular surgery , for the chronic left lateral malleolus nonpressure ulcer and associated PAD. It was felt that any intervention would likely be equivalent and so they decided to not pursue it at this time. The patient does not report increased pain or drainage associated with the ulcer and they're applying topical gentamicin to treat chronic wound infection as recommended. 12/18/17. Seen by Dr. Valdes. The patient and his report increased drainage associated with the chronic left lateral malleolus non-pressure ulcer since his last visit. He does not report pain at the site and he's also scheduled to see vascular surgery next Thursday to evaluate his left lower leg PAD that may be contributing to the refractory nature of the ulcer. 12/11/17. Seen by Dr. Valdes. The patient and his report increased drainage associated with the chronic left lateral malleolus non-pressure ulcer since his last visit. He does not report pain at the site and he's also scheduled to see vascular surgery on December 21 to evaluate his left lower leg PAD that may be contributing to the refractory nature of the ulcer. 11/27/17. Seen by Armin Milligan PA-C. The patient reports that he has an appointment with [facility] vascular clinic to address his PAD. He reports no increase in drainage from his left lateral malleolar ulcer. 11/13/17. Seen by Dr. Valdes. The patient does not report increased pain or drainage associated with her chronic left lateral malleolus nonpressure ulcer since his last visit. 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 Of note, his study from 2016 showed 3 vessel runoff bilaterally. He has a history of chronic osteomyelitis at this ulcer site and was seen by Dr. Carol Oreilly, orthopedic data storage specialist, for consideration of deep debridement but was referred for the repeat Doppler prior to considering surgery. 11/06/17. Seen by Armin Milligan PA-C. The patient reports that he has his arterial doppler scheduled in [place] for next week. He reports no increase in drainage from his left lateral ulcer. 10/29/17. Seen by Armin Milligan PA-C. The patient reports no increase in drainage from his left lateral non-pressure ulcer. He has seen Dr. Marx but has not yet obtained his arterial doppler which she has ordered. 10/22/17. Seen by Dr. Valdes. The patient doesn't report pain or significant drainage associated with chronic left lateral malleolus nonpressure ulcers since last visit. He was seen by Dr. Marx who felt that prior to considering any orthopedic intervention that further vascular workup is required noting he had an MRA in September 2016 that showed a right sided moderate internal iliac stenosis however three-vessel runoff to both lower extremities.He has also completed his course of Zyvox, noting his history of refractory chronic osteomyelitis of the malleolus and recent ulcer deterioration, that was started after his last visit and does not report ever side effects. 10/15/17. Seen by Dr. Valdes. The patient does not report increased pain or drainage associated with the chronic left lateral malleolus nonpressure ulcer since his last visit. His wound culture from last visit grew only diphtheroids. He has an appointment to see Dr. Oreilly, orthopedic data storage specialist, next afternoon for a second opinion regarding options to heal this very refractory ulcer noting its prior history of underlying chronic osteomyelitis. 10/07/17. Seen by Dr. Valdes. The patient returns from his visit to [place] and does not report significant drainage nor pain associated with the chronic left lateral malleolus nonpressure ulcer since is last visit. He completed a course of Zyvox that was started prior to his trip and was treating cellulitis associated with the ulcer. Of note, this ulcer's remained very refractory and has been treated for underlying chronic osteomyelitis in 2017 with extended courses of antibiotics, hyperbaric oxygen therapy, and negative pressure wound therapy. 09/14/17. Seen by Dr. Valdes. The patient does not report pain associated with the chronic left lateral malleolus nonpressure ulcers since his last visit. His however feels that there is increased. His however is concerned that there is increased periulcer erythema and warmth and the patient is not currently on antibiotics. 09/08/17. Seen by Armin Milligan PA-C. The patient reports no increase in drainage from his chronic left ankle ulcer. He also wishes to discuss his chronic toenail infections, which have been present form many years and have been resistant to all forms of treatment. He is concerned the chronic nail infections could be seeding infection to his chronic ulcer. 08/31/17. Seen by Armin York PA-C. The patient reports increased drainage from his left malleolar ulcer. 08/20/17. Seen by Dr. Valdes. The patient does not report pain nor significant drainage associated with the chronic left lateral malleolus nonpressure ulcer since his last visit. 08/13/17. Seen by Dr. Valdes. The patient and his feel there's some increased redness around the chronic left lateral malleolus nonpressure ulcer over the past week. He also complains of a significant increase in fatigue and feel asleep at lunch yesterday. He completed his course of Zyvox that's been treating underlying chronic osteomyelitis of the left ankle and his platelets were at 120 last week. 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 08/10/17. Seen by Dr. Valdes. The patient reports some discomfort associated with the left lateral chronic malleoli nonpressure ulcers since restarting negative pressure wound therapy with a snap wound VAC last week. He continues on Zyvox for underlying chronic osteomyelitis of the left lateral malleolus and he does not report adverse side effects however his platelets are down to 120 today from 160 previous week. 08/05/17. Seen by Dr. Valdes. The patient doesn't report pain or increased drainage associated the chronic left lateral malleolus nonpressure ulcers since last visit. He completed a course of Zyvox which is treating underlying chronic osteomyelitis on Thursday and of note his platelets were within normal limits last week. 07/29/17. Seen by Dr. Valdes. The patient does not report pain or significant drainage associated with the chronic left lateral malleolus non-pressure ulcer since his last visit and he continues on Zyvox for underlying chronic osteomyelitis without reporting adverse side effects. His recently documented thrombycytopenia improved following a one week break from using Zyvox and this was restarted due to a recurrence of inflammation, drainage, and pain at the ulcer site. His platelets are 168 today. He's also completed a total of 40 hyperbaric oxygen dives that's being administered as adjunctive therapy for chronic osteomyelitis and his MRI confirms improvement in terms of bone marrow edema. 07/24/17. Seen by Dr. Valdes. The patient does not report increased pain or drainage associated with the chronic left lateral malleolus ulcer however his feels that there is been some increased redness and warmth in the jen-ulcer area. He continues on doxycycline for underlying osteomyelitis and of note was taken off of Zyvox recently due to thrombocytopenia which appears to have now nearly resolved. His most recent wound culture was unremarkable however. 07/21/17. Seen by Armin Milligan PA-C. The patient's MRI shows improving signs of osteomyelitis. The patient notes decreased drainage from his chronic left lateral malleolus ulcer. He reports no side effects from doxycycline which he is taking for his chronic osteomyelitis. 07/17/17. Seen by Dr. Valdes. The patient does not report pain nor significant drainage associated with chronic left lateral malleolus ulcer since his last visit. He continues on Zyvox for underlying osteomyelitis without reporting adverse side effects. Of note, his most recent CBC showed his platelets decreased to 106. He is also tolerating hyperbaric oxygen therapy without difficulty but does report some significant fatigue intermittently throughout the week. He has sleep apnea and feels that he is due to have his CPAP reevaluated. He has an MRI scheduled next week as well to reevaluate the ostial myelitis. 07/14/17. Seen by Armin Milligan PA-C. The patient reports decreased pain and drainage from his left lateral malleolar ulcer. His recent X-ray shows no bone lysis consistent with osteomyelitis, however neither did his plain film which was taken in March. His previous MRI and bone scan have confirmed the diagnosis of osteomyelitis. He continues on Zyvox for his osteomyelitis. 07/09/17. Seen by Dr. Valdes. The patient does not report significant pain nor drainage associated with the chronic left lateral malleolar nonpressure ulcer and he continues on Zyvox for underlying chronic osteomyelitis without reported adverse side effects. His x-ray of the ankle is unremarkable as was his CBC except for platelets of 116. 07/06/17. Seen by Armin Milligan PA-C. The patient reports no side effects from his Zyvox, which he is taking for osteomyelitis. His left lateral malleolar ulcer has had minimal drainage and the swelling and erythema are reportedly improved. 07/03/17. Seen by Dr. Valdes. The patient has been on Zyvox for the past 7 days and does not report adverse side effects. This is treating chronic osteomyelitis of the left lateral malleolus and he reports only minimal drainage from the overlying ulcer. He is also tolerating negative pressure wound therapy without difficulty. Of note, the ulcer is smaller and less deep over the past 3 weeks and the surrounding tissue is much less swollen and erythematous since starting on Zyvox. 06/26/17. Seen by Dr. Valdes. The patient does not report increasing pain nor drainage associated with a chronic left lateral malleolus nonpressure ulcer since his last visit. She is on Bactrim and is recent wound culture grew resistant species of coag-negative staph and Corynebacterium. Based on sensitivities Zyvox is the only oral medication appropriate for management of these 2 organisms. 06/19/17. Seen by Dr. Valdes. The patient does not report pain or increased drainage associated with chronic left lateral malleolus nonpressure ulcers since his last visit. He continues on doxycycline however his recent wound culture returned with a coag negative staph resistant to doxycycline. He also continues with hyperbaric oxygen therapy to treat chronic osteomyelitis without reported any adverse side effects. 06/12/17. Seen by Dr. Valdes. The patient feels that the drainage associated with the chronic left lateral malleolus ulcer has decreased over the past few days. He does not report any associated pain either. He continues on doxycycline for underlying osteomyelitis and does not report adverse side effects. He's also completed 21 was 30 dives in the hyperbaric chamber and does not report any adverse effects. Also, his wound culture from the 09 of June again grew a diptheroids specis and has been sent for further speciation and sensitivities to help direct our antibiotic therapy. 06/09/17. Seen by Dr. Valdes. The patient feels the pain associated with the left lateral malleolus ulcer and underlying chronic osteomyelitis have improved since changing his antibiotics from clindamycin to doxycycline following his last visit. He does not report adverse side effects and his recent wound culture grew only diptheroids. 06/04/17. Seen by Dr. Valdes. The patient does not report significant pain or increased drainage associated with chronic left lateral malleolus nonpressure ulcer. He continues on clindamycin for underlying osteomyelitis of the malleolus and of note his wound culture from 2 days ago shows early growth but does not report a species yet. 06/02/17. Seen by Dr. Valdes. The patient reports some aching of the left lateral malleolus over the past week. He continues on antibiotics for chronic osteomyelitis of the ankle and does not report increased drainage from the overlying nonpressure ulcer. 05/26/17. Seen by Dr. Valdes. The patient does not report significant pain and drainage associated with left lateral malleolus ulcer since his last visit. He is tolerating HBOT as well without difficulty and does not report adverse side effects from antibiotics treating chronic osteomyelitis of the underlying malleolus. 05/21/17. Seen by Armin Milligan PA-C. The patient reports increased pain in his left lateral malleolar ulcer in the past few days. He has taken APAP in the middle of the night to treat the pain, which is unusual for him. 05/14/17. Seen by Dr. Valdes. The patient does not report significant pain or drainage associated with the refractory left lateral malleolar non-pressure ulcer since his last visit and he continues on antibiotics for associated underlying chronic osteomyelitis and HBOT without reporting adverse side effects. He also does not report fevers or adverse affects of the antibiotics. 05/06/17. Seen by Armin Milligan PA-C. The patient reports no increase in pain or drainage from his left lateral malleolar ulcer since his last evaluation. He is also here for HBOT clearance and recalls previous HBOT sessions which he completed without complication. He denies any recent eye surgeries. 04/30/17. Seen by Armin Milligan PA-C. The patient reports no change in drainage or pain from his chronic left lateral malleolar ulcer since his last evaluation. He is currently on clindamycin for chronic osteomyelitis of this area, though he reports that the pharmacy had a prescription for levaquin as well waiting for him. He has been taking both for 7 days and today is his last dose of both. 04/23/17. Seen by Dr. Valdes. The patient reports moderate pain in the lateral ankle when bearing weight along with persistent drainage from the overlying non-pressure ulcer over the past week. He's not currently on antibiotics and does not report fevers or feeling unwell in general. Of note, he's been treated with extended courses of antibiotics and hyperbaric oxygen therapy for chronic osteomyelitis of lateral malleolus at the end of 2015 and into December of 2016 with near resolution of the overlying ulcer about 6 weeks ago. He then presented with an acute deterioration of the ulcer, left lower leg cellulitis, and an MRI that suggested recurrence of osteomyelitis but did no confirm due to the fact the ulcer did not extend to the bone. 04/13/17. Seen by Armin Milligan PA-C. The patient reports that when he underwent his MRI that the compression device his foot was placed in caused significant pain to the left lateral malleolar area. In addition he noted that after the MRI it was more red, swollen and draining more than it was previously. He is currently on doxycycline for his cultured MSSA ulcer infection. Of note his MRI showed some bone marrow edema in the ulcer area but this was thought to be reactive rather than evidence of osteomyelitis. 04/08/17. Seen by Armin Milligan PA-C. The patient reports continued drainage from his left lateral malleolus ulcer and his culture did not grow significant pathologic bacteria. 03/30/17. Seen by Dr. Valdes. The patient reports increased pain and drainage associated with the chronic left lateral malleolus non-pressure ulcer starting last Thursday. He has pain when bearing weight and reports noticeable shivers and chills last night. He's currently off of antibiotics and has been treated within the past few month for chronic osteomyelitis of the malleolus with and extended course of antibiotics and hyperbaric oxygen therapy. 03/20/17. Seen by Dr. Valdes. The patient feels the drainage and pain associated with the chronic left lateral malleolar neuropathic ulcer has resolved. He continues applying topical gentamicin to the ulcer based as recommended to treat a chronic wound infection. 03/06/17. Seen by Dr. Valdes. The patient feels the drainage and pain associated with the chronic left lateral malleolar neuropathic ulcer has improved since starting to apply topical gentamicin twice daily following his last visit. His culture grew a coag negative staph. 02/27/17. Seen by Dr. Valdes. The patient reports increased pain and drainage associated with the chronic left lateral malleolar non-pressure ulcer over the past few days. They stopped applying topical antibiotic as I requested a couple of weeks ago and have been changing the dressing as recommended. 02/13/17. Seen by Dr. Valdes. The patient does not report drainage or pain associated with the chronic left lateral malleolus non-pressure ulcer over the past 2 weeks. 01/30/17. Seen by Dr. Valdes. The patient does not report pain nor significant drainage associated with a chronic left lateral malleolar non-pressure ulcers since last visit. 01/16/17. Seen by Dr. Valdes. The patient does not report pain nor significant drainage associated with a chronic left lateral malleolar non-pressure ulcers since last visit. His vision glare he reported at the last visit has not yet resolved and he's going to see his opthamologist noting this is likely a side effect of his recent hyperbaric oxygen therapy. 01/02/17. Seen by Dr. Valdes. The patient does not report pain nor significant drainage associated with a chronic left lateral malleolar nonpressure ulcers since last visit. Of note, the patient reports persistent vision glare most notable at night since completion of his hyperbaric oxygen therapy. 12/19/16. Seen by Dr. Valdes. The patient does not report increased drainage associated with the chronic left lateral malleolar nonpressure ulcer since his last visit. 12/10/16. Seen with Dr. Valdes. The patient does not report significant drainage or pain associated with the chronic left lateral malleolus nonpressure ulcer over the past week.Of note, he is no longer undergoing HBOT that while being treated he was noted to have a number of elevated blood sugars over 150 and also had considerable issues with hypoglycemia during the times. He does not currently have a diagnosis of diabetes. 12/03/16. Seen by Dr. Valdes. The patient does not report pain or drainage associated with the chronic left lateral malleolar non-pressure ulcer have been minimal since his last. 11/26/16. Seen by Dr. Valdes. The patient was here for hyperbarics today however his blood sugars were stay consistently 90 and he has been dropping by as much as 70 points during his dive sessions. 11/17/16. Seen by Dr. Valdes. The patient feels the drainage and pain associated with the chronic left lateral malleolar non-pressure ulcer have been minimal since his last visit and he continues on doxycycline and Flagyl, plus receiving HBOT, for chronic osteomyelitis of the underlying malleolus. Of note, the patient reports some weakness and loss of balance following HBOT dives but does not report other specific symptoms. 11/03/16 Seen by Armin Milligan PA-C. The patient reports no increase in pain or drainage from his left lateral malleolar non-pressure ulcer with underlying chronic osteomyelitis. He has been tolerating HBOT adjunctive therapy well and has been compliant with his dual antibiotic therapy for chronic osteomyelitis without significant adverse side-effects. 10/27/16 Seen by Armin Milligan PA-C. The patient reports no increase in drainage or pain from his chronic left lateral malleolar non-pressure ulcer. 10/21/16. Seen by Dr. Valdes. The patient feels the drainage and pain associated with the chronic left lateral malleolar non-pressure ulcer has been minimal since his last visit and he continues on doxycycline and Flagyl, plus receiving HBOT, for chronic osteomyelitis of the underlying malleolus. 10/14/16 Seen by Armin Milligan PA-C. The patient reports increased erythema in the area of his left lateral malleolar wound and increased drainage as well as pain, which he reports is a stabbing, moderate pain that does not radiate and is intermittent without any identifiable exacerbating or relieving factors. 10/07/16 Seen by Armin Milligan PA-C. The patient reports no increase in drainage from his left lateral malleolar ulcer since his last evaluation. 09/30/16 Seen by Armin Milligan PA-C. The patient's wound culture returned with a coagulase negative staph spp. that is likely resistant to the cefdinir he is taking. His ulcer of the left lateral malleolus has had stable drainage and discomfort. 09/25/16. Seen by Dr. Valdes. The patient feels the pain and periwound redness associated with the left lateral malleolar ulcer and underlying chronic osteomyelitis have nearly resolved over the past week. He also continues on doxycycline without reporting adverse side effects and he has an MRA scheduled tomorrow to evaluate for clinically significant PAD in the left leg that may be inhibiting wound healing. 09/17/16. Seen by Dr. Valdes. The patient does not report pain or drainage associated with the chronic left lateral malleolar ulcer and underlying chronic osteomyelitis. He continues on cefdinir without reporting adverse side effects and is tolerating HBOT without issue. Of note, his arterial Doppler from November shows heavy calcification within the left lower leg arteries and he reports pain in the lower leg at night that improves when he hangs his foot over the bed. His SOLITARIO performed on the left leg from November however was reported as 1.2. 09/10/16. Seen by Dr. Valdes. The patient feels the pain and drainage associated with the chronic left lateral malleolar ulcer and underlying chronic osteomyelitis have decreased since changing from doxycycline to cefdinir this past week. He's also been approved for HBOT and plans to start next Thursday. 09/03/16. Seen by Dr. Valdes. The patient reports increased pain and redness in the chronic left lateral malleolar periwound area over the past 2 days. His wound culture taken on 09/01/16 was unremarkable and he continues on doxycycline for chronic osteomyelitis of the left lateral malleolus without reporting adverse side effects. He does not report fevers or feeling unwell and has bought new shoes and cut out the margin below the ankle so as to prevent trauma to the ulcer. 09/01/16. Seen by Dr. Valdes. The staff report some increased redness and skin breakdown at the left lateral malleolar chronic ulcer site. The patient does not report pain or drainage as the ulcer and his NPWT was held over the long holiday weekend. He also continues on doxycycline for chronic osteomyelitis of the underlying malleolus. 08/22/16. Seen by Dr. Valdes. The patient does not report pain or increased drainage associated with the chronic left lateral malleolar ulcer and he continues on doxycycline for the recent coag negative Staph culture and underlying chronic osteomyelitis. He does note increased redness and some skin breakdown in the periwound area however since taking off the wound vac today. He'll be traveling for the soon and will not be able to return to clinic on his usual schedule. 08/15/16. Seen by Dr. Valdes. The patient does not report pain associated with the chronic left lateral malleolar ulcer and he continues on doxycycline for the recent coag negative Staph culture from the site and underlying chronic osteomyelitis of the lateral malleolus. He's tolerated the wound vac without difficulty. 08/12/16. Seen by Dr. Valdes. The patient does not report pain associated with the chronic left lateral malleolar ulcer and he continues on doxycycline for the recent coag negative Staph culture from the site. He's tolerated the wound vac without difficulty and his recent MRI suggests underlying osteomyelitis of the lateral malleolus. 07/31/16. Seen by Dr. Valdes. The patient does not report pain associated with the chronic left lateral malleolar ulcer and he continues on doxycycline for the recent coag negative Staph culture from the site. His MRI suggests underlying osteomyelitis of the lateral malleolus also. He does not report fevers or feeling unwell nor increased drainage from the ulcer over the past week. Of note, the ulcer's been present for about 1 year and unchanged essentially for many months. 07/24/16. Seen by Dr. Valdes. The patient does not report pain or significant drainage associated with the left lateral malleolar non-pressure ulcer over the past week. His MRI is scheduled for today to evaluate for underlying osteomyelitis. His wound culture from the last visit grew coag negative Staph and he's been applying gentamicin ointment to the ulcer bed as recommended. 07/17/16. Seen by Dr. Valdes. The patient's new to our clinic and presents with a non-healing left lateral malleolar ulcer that's been present for about one year. He does not report pain or significant drainage from the site nor fevers or feeling unwell in general. He does not have a history of diabetes nor does he report symptoms of claudication or rest pain. His most recent wound culture grew 2 species of coag negative Staph however he's not been on systemic antibiotics recently. 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 Past Medical History This information was obtained from the patient Patient has a medical history of: Vertigo Hallux valgus Monoclonal gammopathy Unspecified myalgia and myositis Familial tremor Anemia Gait ataxia Depression Pleural effusion Peripheral neuropathy Anxiety Rhinitis Gastro Esoph. Reflux Disease (GERD) Coronary Artery Disease (CAD) Chronic osteomyelitis (left lateral malleolus; treated with HBOT x2) Complaints and Symptoms This information was obtained from the patient Patient complains of: General Notes: I have reviewed and concur with the Review of Systems and Past Family Social History documents completed by the clinician, I have reviewed and concur with the Wound Assessment document completed by the clinician Integumentary (Hair/Skin/Nails): Open Sore Prior Wound History: Drainage, Erythema, Pain Patient denies complaints or symptoms related to: Cardiovascular (Central): Irregular heart beat Cardiovascular (Central/Peripheral): Intermittent Claudication, Lower extremity (leg) resting pain, Lower extremity (leg) swelling Constitutional Symptoms (General Health): Chills, Fever, Marked Weight Change Ear/Nose/Mouth/Throat: Hearing Loss / Aid Gastrointestinal (GI): Nausea / Vomiting Hematologic/Lymphatic: Bleeding / Clotting Disorders, Bleeding Tendency Musculoskeletal: Deformities, Joint Swelling Neurological: Loss of Protective Sensation Prior Wound History: Bleeding, Malodor Psychiatric: Depression, Memory Loss Respiratory: Oxygen Use, Shortness of Breath OBJECTIVE Constitutional Vital signs reviewed and noted. Well developed. Alert. Clean appearing.. Height/ Length: 74 in (187.96 cm), Weight: 219.5 lbs (99.77 kgs), BMI: 28.2, Temperature: 97.7 ?F ( 36.5 ?C), Pulse: 68 bpm, Respiratory Rate: 18 breaths/min, Blood Pressure: 135/88 mmHg, Pulse Oximetry: 98 %. Respiratory: No respiratory distress. Even respirations and without use of accessory muscles.. Cardiovascular: Affected extremity exhibits no peripheral edema or cyanosis, is warm, and is well perfused. Capillary refill is less than 2 seconds. Integumentary (Hair, Skin) Mild periwound erythema without warmth. Refer to appropriate clinician wound documentation for this visit; left lateral malleolus ulcer extends to subcut with base partially covered with pink granulation, remainder fibrin and slough. Wound #1 Left, Lateral Malleolus is a chronic Full Thickness Neuropathic Ulcer and has received a status of Not Healed. Subsequent wound encounter measurements are 0.1cm length x 0.1cm width x 0.1cm depth, with an area of 0.01 sq cm and a volume of 0.001 cubic cm. No tunneling has been noted. No sinus tract has been noted. No undermining has been noted. There is a scant amount of serous drainage noted which has no odor. The patient reports no wound pain due to the wound being insensate. The wound margin is rolled. Wound bed has Yes epithelialization, No eschar, Yes slough, No granulation. The periwound skin moisture is normal. The periwound skin color is normal. The periwound skin did not exhibit: Brawny Induration, Edema, Excoriation, Induration, Callus , Crepitus, Fluctuance, Friable, Rash. The temperature of the periwound skin is WNL. Periwound skin does not exhibit signs or symptoms of infection. Local Pulse is Normal. Neurological: Cranial nerves grossly intact with symmetric function normal by informal observation.. ASSESSMENT Active Problems ICD-10 (Encounter Diagnosis) L97.322 - Non-pressure chronic ulcer of left ankle with fat layer exposed (Encounter Diagnosis) L03.116 - Cellulitis of left lower limb (Encounter Diagnosis) L08.89 - Other specified local infections of the skin and subcutaneous tissue PROCEDURES Wound #1 Wound #1 (Neuropathic Ulcer) is located on the left, lateral malleolus. A Surgical debridement Total area debrided was 0.01 sq cm. was performed by Shankar Valdes MD. Subcutaneous was removed along with devitalized tissue: slough. The following instrument(s) were used: curette. Pain control was achieved using N/A. A time out was conducted prior to the start of the procedure. No bleeding occurred. The procedure was tolerated well with a loss of sensation throughout and a loss of sensation following the procedure. Post Debridement Measurements: 0.1cm length x 0.1cm width x 0.1cm depth; with an area of 0.01 sq cm and a volume of 0.001 cubic cm; Additional Information Muscle fascia or bone removed and sent to pathology?: No PLAN Wound Orders: Wound #1 Left, Lateral Malleolus Cleanser Cleanse Wound: - Normal saline in clinic. May use distilled water at home. May Shower. - Please avoid getting tap water in wound. Cover while in shower. May use cast protector. Dressings Primary dressing: - 3x3 border foam Change Dressing: - Every other day Additional Orders: Follow-Up Appointments Return Appointment: - - One week. Other information: If you develop fever, chills, increased pain, drainage, redness or swelling please call our office. If after hours, respond to the ER. Should you experience any significant changes in your wound(s) or have any questions regarding your home care instructions please contact the wound center @ [phone]. If after hours, contact your primary care physician or go to the hospital emergency room. Scribing Attestation I attest, as the nurse, that I scribed these orders for the physician. Laboratory: Culture Wound - Left ankle. I've reviewed the clinician's documentation and agree with the evaluation and plan as written. Also, I've held NPWT today and repeated a wound culture based on the periulcer erythema. I'll consider continuing antibiotics pending the culture results. Electronic Signature(s) Signed By: Date: Shankar Valdes MD 07/07/2018 07:59:58 Entered By: Shankar Valdes on 07/07/2018 07:44:15
== END ==
PROVIDERS: PCP Family Medicine; Visit Provider Internal Medicine
DX: G90.9 Disorder of the autonomic nervous system, unspecified (principal); L97.322 Non-pressure chronic ulcer of left ankle with fat layer exposed; L03.116 Cellulitis of left lower limb; L08.9 Local infection of the skin and subcutaneous tissue, unspecified
CPT/HCPCS: 87070; 87075; 87077; 87186; 87205; 99211

== ENCOUNTER → 2018-07-21 11:01 | Outpatient (CLI) | payer MEDICARE, OTHER, SELFPAY | PROVIDERS: PCP Family Medicine; Visit Provider Family Medicine | DX: G90.09 Other idiopathic peripheral autonomic neuropathy (principal); I87.2 Venous insufficiency (chronic) (peripheral); L97.321 Non-pressure chronic ulcer of left ankle limited to breakdown of skin | CPT/HCPCS: 99212; 99213 ==

== ENCOUNTER → 2018-07-28 13:49 | Outpatient (CLI) | payer MEDICARE, OTHER, SELFPAY | PROVIDERS: PCP Family Medicine; Visit Provider Family Medicine | DX: L97.321 Non-pressure chronic ulcer of left ankle limited to breakdown of skin (principal); G90.09 Other idiopathic peripheral autonomic neuropathy; I87.2 Venous insufficiency (chronic) (peripheral) | CPT/HCPCS: 99212; 99213 ==

== ENCOUNTER → 2018-07-30 18:41 | Outpatient (CLI) | payer MEDICARE, OTHER, SELFPAY ==
--- NOTE | 2018-07-30 | DI.MRI.S_ITS ---
PROCEDURE: MR FOOT LT WO/W CON INDICATIONS: NON PRESSURE ULCER TECHNIQUE: Noncontrast coronal T1 spin echo and STIR, sagittal T1 spin echo with fat saturation and STIR, axial T1 spin echo and T2 fast spin echo with fat saturation. After the administration of contrast, axial/sagittal/coronal T1 spin echo with fat saturation through the left forefoot. COMPARISON: [facility], CR, ANKLE 3 VIEWS LEFT, 10/16/2017, 15:25. FINDINGS: Image quality: Excellent. Bones: There is moderate hallux valgus. Osteoarthritic changes are noted throughout TMT joints, MCP joints, and interphalangeal joints. There is subchondral cystic changes involving medial cortex of first metatarsal head. Mild edema and subchondral cyst formation involving the third and fourth metatarsal bases and adjacent medial cuneiform are seen. No definite fracture line or bony erosive changes. The overlying cortex appears intact. No abnormal intraosseous enhancement. Soft tissues: No soft tissue masses are visualized. The scanned muscles demonstrate normal overall bulk and internal signal. Subcutaneous tissues appear normal as well. No abnormal soft tissue enhancement. IMPRESSION: 1. No evidence of ulceration or abscess collection within left pelvis soft tissue. 2. Moderate hallux valgus. Mild to moderate osteoarthritic changes throughout 4 fluid and visualized portion of the fluid more prominent involving third and fourth TMT joints as described above. No MR evidence of osteomyelitis. Dictated by: Berry Alvarado M.D. on 08/02/2018 at 8:28 Approved by: Berry Alvarado M.D. on 08/02/2018 at 8:35
--- NOTE | 2018-07-30 18:45 | DI.MRI.S_ITS ---
PROCEDURE: MR ANKLE LT WO/W CON INDICATIONS: NON PRESSURE CHRONIC ULCER OF LEFT ANKLE WITH FAT TECHNIQUE: Noncontrast sagittal T1 spin echo and T2 fast spin echo with fat saturation, axial proton density fast spin echo and T2 fast spin echo with fat saturation, axial T1 spin echo with fat saturation, coronal T1 spin echo and T2 fast spin echo with fat saturation through the ankle/hindfoot. Post-contrast axial, coronal, and sagittal T1 spin echo with fat saturation through the ankle/hindfoot. COMPARISON: [facility], MR, ANKLE W&WO CONTRAST, 07/20/2017, 8:28. FINDINGS: Image quality: Excellent. Bones and joints: No suspicious osseous enhancement. The previously described amorphous marrow edema low lateral periphery of the medial malleolus is near completely resolved with subtle residual marrow signal in this area. No cortical erosion. No other area of marrow edema. No fracture or dislocation. No hindfoot coalitions. No osteochondral injuries of the talar dome. No pathologic joint effusions. Medial structures: The posterior tibialis, flexor digitorum longus, and flexor hallucis longus tendons are intact. The posterior tibial neurovascular bundle appears normal within the tarsal tunnel, without extrinsic mass effect. The deep layer (anterior and posterior tibiotalar ligaments) and superficial layer (tibionavicular, tibiospring, and tibiocalcaneal ligaments) of the deltoid ligament appear normal. The spring ligament components (superomedial calcaneonavicular, medioplantar oblique calcaneonavicular, and inferoplantar longitudinal ligaments) are intact. Lateral structures: The focal skin defect over tip of lateral malleolus is again seen consistent with ulceration. There is mild adjacent soft tissue edema and thickening suggestive of cellulitis. No drainable fluid collection is identified. The anterior talofibular, calcaneofibular, and posterior talofibular ligaments appear intact. More superiorly, the anterior and posterior tibiofibular ligaments appear intact, as is the intermalleolar ligament. The tibiofibular syndesmosis is normal in width at 2 mm or less. The peroneus longus and brevis tendons demonstrate normal location and morphology. Adjacent bony peroneal tubercle and retrotrochlear prominence are normal in size. The sinus tarsi demonstrates normal fatty signal, without edema, fibrosis, or cyst formation. Visualized sinus tarsi components (cervical ligament, interosseous talocalcaneal ligament, roots of the inferior extensor retinaculum) appear normal. The calcaneonavicular and calcaneocuboid components of the bifurcate ligament appear intact. The dorsal calcaneocuboid ligament appears intact. Anterior structures: The tibialis anterior, extensor hallucis longus, and extensor digitorum longus tendons appear intact. The dorsal talonavicular ligament appears intact. Posterior and plantar structures: Achilles tendon is intact. Medial and lateral bands of the plantar fascia are of normal thickness. No abductor digiti quinti muscle atrophy to suggest Gonzales neuropathy. IMPRESSION: 1. Minimal amount of subtle marrow signal along the lateral periphery of distal lateral malleolus, most consistent with subtle reactive edema in this region. No overlying cortical erosion or periosteal reaction is seen to suggest osteomyelitis. 2. Suggestion of tiny ulceration involving lateral ankle soft tissue over tip of lateral malleolus with adjacent mild subcutaneous soft tissue cellulitis. No drainable fluid collection is seen. 3. Previously described the wide spread fatty atrophy of intrinsic foot muscles are not significantly changed. Dictated by: Berry Alvarado M.D. on 08/02/2018 at 8:35 Approved by: Berry Alvarado M.D. on 08/02/2018 at 8:47
== END ==
PROVIDERS: PCP Family Medicine; Visit Provider Family Medicine
DX: L97.322 Non-pressure chronic ulcer of left ankle with fat layer exposed (principal); M20.12 Hallux valgus (acquired), left foot; M19.072 Primary osteoarthritis, left ankle and foot
CPT/HCPCS: 73720; 73723; A9579

== ENCOUNTER → 2018-08-06 13:20 | Outpatient (CLI) | payer MEDICARE, OTHER, SELFPAY | PROVIDERS: PCP Family Medicine; Visit Provider Family Medicine | DX: G90.9 Disorder of the autonomic nervous system, unspecified (principal); L97.321 Non-pressure chronic ulcer of left ankle limited to breakdown of skin; M71.072 Abscess of bursa, left ankle and foot; I73.9 Peripheral vascular disease, unspecified | CPT/HCPCS: 99212; 99213 ==

== ENCOUNTER → 2018-08-20 10:43 | Outpatient (CLI) | payer MEDICARE, OTHER, SELFPAY | PROVIDERS: PCP Family Medicine; Visit Provider Family Medicine | DX: G90.09 Other idiopathic peripheral autonomic neuropathy (principal); L97.321 Non-pressure chronic ulcer of left ankle limited to breakdown of skin; I87.2 Venous insufficiency (chronic) (peripheral); M89.8X7 Other specified disorders of bone, ankle and foot; L03.116 Cellulitis of left lower limb | CPT/HCPCS: 11042 ==

== ENCOUNTER → 2018-09-02 10:50 | Outpatient (CLI) | payer MEDICARE, OTHER, SELFPAY | PROVIDERS: PCP Family Medicine; Visit Provider Family Medicine | DX: S91.002A Unspecified open wound, left ankle, initial encounter (principal); G90.09 Other idiopathic peripheral autonomic neuropathy; I73.9 Peripheral vascular disease, unspecified; I87.2 Venous insufficiency (chronic) (peripheral); M89.8X7 Other specified disorders of bone, ankle and foot; L03.116 Cellulitis of left lower limb | CPT/HCPCS: 97597; 99212 ==

== ENCOUNTER → 2018-09-16 11:06 | Outpatient (CLI) | payer MEDICARE, OTHER, SELFPAY | PROVIDERS: PCP Family Medicine; Visit Provider Family Medicine | DX: S91.002A Unspecified open wound, left ankle, initial encounter (principal); G90.09 Other idiopathic peripheral autonomic neuropathy; M65.072 Abscess of tendon sheath, left ankle and foot; M85.3 Osteitis condensans | CPT/HCPCS: 97597 ==

== ENCOUNTER → 2018-09-22 15:00 | Outpatient (CLI) | payer MEDICARE, OTHER, SELFPAY | PROVIDERS: PCP Family Medicine; Visit Provider Family Medicine | DX: G90.09 Other idiopathic peripheral autonomic neuropathy (principal); L97.321 Non-pressure chronic ulcer of left ankle limited to breakdown of skin; I87.2 Venous insufficiency (chronic) (peripheral) | CPT/HCPCS: 29445 ==

== ENCOUNTER → 2018-09-24 09:27 | Outpatient (CLI) | payer MEDICARE, OTHER, SELFPAY | PROVIDERS: PCP Family Medicine; Visit Provider Family Medicine | DX: G90.09 Other idiopathic peripheral autonomic neuropathy (principal); L97.321 Non-pressure chronic ulcer of left ankle limited to breakdown of skin; I87.2 Venous insufficiency (chronic) (peripheral) | CPT/HCPCS: 29445 ==

== ENCOUNTER → 2018-10-01 10:02 | Outpatient (CLI) | payer MEDICARE, OTHER, SELFPAY | PROVIDERS: PCP Family Medicine; Visit Provider Family Medicine | DX: G90.09 Other idiopathic peripheral autonomic neuropathy (principal); L97.321 Non-pressure chronic ulcer of left ankle limited to breakdown of skin; M65.072 Abscess of tendon sheath, left ankle and foot; I87.2 Venous insufficiency (chronic) (peripheral) | CPT/HCPCS: 99212 ==

== ENCOUNTER → 2018-10-12 09:03 | Outpatient (CLI) | payer MEDICARE, OTHER, SELFPAY | PROVIDERS: PCP Family Medicine; Visit Provider Family Medicine | DX: I87.2 Venous insufficiency (chronic) (peripheral) (principal); L97.322 Non-pressure chronic ulcer of left ankle with fat layer exposed; G90.09 Other idiopathic peripheral autonomic neuropathy | CPT/HCPCS: 11042 ==

== ENCOUNTER → 2018-10-14 10:57 | Outpatient (CLI) | payer MEDICARE, OTHER, SELFPAY | PROVIDERS: PCP Family Medicine; Visit Provider Family Medicine | DX: L97.321 Non-pressure chronic ulcer of left ankle limited to breakdown of skin (principal); G90.9 Disorder of the autonomic nervous system, unspecified | CPT/HCPCS: 29581 ==

== ENCOUNTER → 2018-10-20 10:59 | Outpatient (CLI) | payer MEDICARE, OTHER, SELFPAY | PROVIDERS: PCP Family Medicine; Visit Provider Family Medicine | DX: I87.2 Venous insufficiency (chronic) (peripheral) (principal); L97.322 Non-pressure chronic ulcer of left ankle with fat layer exposed; G90.09 Other idiopathic peripheral autonomic neuropathy; M89.8X7 Other specified disorders of bone, ankle and foot | CPT/HCPCS: 11042 ==

== ENCOUNTER → 2018-10-27 13:34 | Outpatient (CLI) | payer MEDICARE, OTHER, SELFPAY | PROVIDERS: PCP Family Medicine; Visit Provider Family Medicine | DX: I87.2 Venous insufficiency (chronic) (peripheral) (principal); L97.322 Non-pressure chronic ulcer of left ankle with fat layer exposed; M89.8X7 Other specified disorders of bone, ankle and foot; G90.09 Other idiopathic peripheral autonomic neuropathy; I73.9 Peripheral vascular disease, unspecified | CPT/HCPCS: 11042; 87070; 87075; 87077; 87186; 87205 ==

== ENCOUNTER → 2018-11-03 13:06 | Outpatient (CLI) | payer MEDICARE, OTHER, SELFPAY | PROVIDERS: PCP Family Medicine; Visit Provider Family Medicine | DX: I87.2 Venous insufficiency (chronic) (peripheral) (principal); L97.322 Non-pressure chronic ulcer of left ankle with fat layer exposed; G90.09 Other idiopathic peripheral autonomic neuropathy; B95.7 Other staphylococcus as the cause of diseases classified elsewhere; M89.8X7 Other specified disorders of bone, ankle and foot | CPT/HCPCS: 99212; 99213 ==

== ENCOUNTER 2018-11-08 06:10 | Day surgery (SDC) | payer MEDICARE, OTHER, SELFPAY ==
[2018-11-02 12:58] VITALS: BMI 29.2
[2018-11-08] VITALS (8 sets, daily range): BP systolic 130–168; BP diastolic 82–99; PULSE 66–72; RESP 8–20; TEMP 36.1–36.7; O2SAT 94–98; BMI 29.0
--- NOTE | 2018-11-08 | PATH_ITS ---
[facility] Accession Number: [id number] . 01 Material submitted: . PART A: SINUS TRACT LEFT ANKLE PART B: LEFT ANKLE BONE . 02 Diagnosis: A. Left Ankle Sinus Tract, Biopsy: Dense fibrous tissue with chronic active inflammation. No evidence of neoplasia. . B. Left Ankle, Bone, Biopsy: Bone with no evidence of active inflammation. Hypocellular bone marrow. Please see comment. No evidence of neoplasm. MRV/11/11/2018 . 02 Comment: Part B: The bone marrow in this biopsy is hypocellular and almost entirely adipose tissue. An assesssment of trilineage hematopoiesis cannot be determined. . 02 Electronically signed: . Christel Menezes MD, Pathologist NPI- [id number] . 01 Gross description: . (A) Received in formalin, labeled sinus tract L ankle, are multiple pieces of parker rubbery tissue (2.0 x 2.0 x 0.3 cm in aggregate). Entirely submitted in cassette A1. (B) Received in formalin, labeled bone L ankle wound, is a core biopsy of parker-yellow gritty bone (length-1.1 cm, diameter-0.2 cm). Decalcified and entirely submitted in cassette B1. ([id number]) /[facility] . 02 Pathologist provided ICD-10: L97.909 . 02 CPT . 509544, [id number] Performed at: 01 [facility] [address] [id number] MD Ferdinand Lin MD Phone: [phone] Performed at: 02 [facility] [id number] [place], [place] [id number] MD Christel Menezes MD Phone: [phone]
[2018-11-08 06:37] LABS: White Blood Cell Count 7.9 X10^3/uL (4.5-11.0)
[2018-11-08 06:59] LABS: C-Reactive Protein Quant < 0.5 mg/dL (<1.0)
[2018-11-08 07:01] LABS: Erythrocyte Sedimentation Rate 1 MM/HR (0-15)
[2018-11-08] MEDS: LACTATED RINGERS 1,000 ML 42 ML IV (07:15)
--- NOTE | 2018-11-08 07:15 | PM.PREOP ---
Pre-operative Note Interval Note History & Physical reviewed/Exam performed by Physician: Yes Changes to H&P: No
[2018-11-08 07:27] LABS: Blood Urea Nitrogen 9 mg/dL (9-20); Calcium 9.5 mg/dL (8.4-10.2); Carbon Dioxide 26 mmol/L (22-32); Chloride 101 mmol/L (98-107); Estimated Glomerular Filt Rate > 60.0 mL/min (>60); Glucose 89 mg/dL (80-110); HEMOLYSIS 22 (0-50); Potassium 4.1 mmol/L (3.4-5.1); Sodium 140 mmol/L (137-145)
--- NOTE | 2018-11-08 08:12 | SUR.OPER ---
Supine on padded OR bed, head on pillow, arms secured on padded arm boards at <90 degrees abduction, legs uncrossed, safety belt at thigh, tape over blanket over right lower leg.
[2018-11-08] MEDS: VANCOMYCIN 1,000 MG/200 ML FROZ.PIGGY 200 MG IV (08:44)
--- NOTE | 2018-11-08 09:05 | P.OP_ITS ---
Operative Date/Time/Diagnoses Date of procedure: 11/08/18 Time of procedure: 08:00 Pre-op diagnosis: Neuropathic ulcer left ankle 97.309 Osteomyelitis left ankle gammopathy Post-op diagnosis: same Procedure & Clinicians Procedure: 1. Deep bone biopsy left ankle CPT code 86403 2. Irrigation debridement tissue down to bone, excisional, less than 20 sq cm CPT code 74897 Same procedure as scheduled: Yes Indications: History Austin is a 77-year-old male with over 4 year history of a left ankle lateral malleolus ulcer. He states this started at the blistering came ulcer and osteomyelitis. He has had extensive wound care over the last 3- 4 years with debridements antibiotics and hyperbaric treatment and negative pressure wound therapy. He has had a waxing waning course but now has increased swelling and pain and increased size of the ulceration. He has been off antibiotics recently additionally the patient had consultation with interventional cardiology for vascular insufficiency and felt the intervention was not necessary. Patient has been indicated for irrigation debridement and deep bone biopsy of the ulcer and bone to establish a good fresh wound bed for possible coverage for wound healing by secondary intention using a VAC or wet to dry dressings. The patient also been indicated for bone biopsy for specific antibiotic treatment if necessary. Risks benefits and alternatives to procedure were discussed with the patient and his in detail and these include but are not limited to infection, delayed wound healing, need for additional procedures, persistent pain, DVT, PE, cardiopulmonary complications related to general anesthesia up to and including stroke or . Patient understands and agreed to the plan. Informed consent was signed in the office. Surgeon: Carol Oreilly Click Yes if Unassisted: Yes Anesthesia Type: General Operative Notes Findings: Approximately 12 mm x 60 mm x 3 mm deep ulceration over the distal lateral malleolus of the left ankle. Fibrinous exudate present as well as chronic granulation tissue-chronic sinus. No malodor or gross drainage. Surrounding skin approximately 4 x 4 cm over the lateral malleolus is hyperpigmented/maki in color. Excision of the sinus tracts taken down to bone the lateral malleolus and there appears to be some tracking into the soft tissues just distal to the lateral malleolus and the lateral ligament area no evidence of deep tracking into the joint. Devitalized tissue was excised down to healthy-appearing tissue and the wound edges are resected. Deep bone biopsies taken using the jam she needle and the periosteum of the lateral malleolus is removed and freshened down to good bleeding bone using the kan Closure Type: non-primary Specimen(s): other (Tissue and bone for culture and pathology) Applied: other (Soft dressing) Estimated Blood Loss (mL): 5 Blood products transfused: none Tourniquet time (min): 15 Procedure in detail: Patient was seen in the preoperative area site of surgery was marked informed consent confirmed. The patient was then brought back to operating room by anesthesia team and placed supine on the operative table. General anesthesia was administered. All bony prominences were padded. Was placed on the operative extremity and Thomas SCD was placed on the contralateral limb. Ipsilateral hip bump was placed. The left lower extremity was prepped and draped in the standard sterile fashion using Betadine around the open area. Formal time-out procedure was performed confirming the patient's side and site of surgery presence of informed consent. Antibiotics were held for cultures. All were in agreement. Braselton exsanguination was used and the tourniquet was elevated to 250 mm of mercury stayed there for approximately 15 min. The left lateral malleolus ulcer was inspected this was approximately 12 x 16 x 3 mm and demonstrated chronic granulation tissue and fibrinous exudate. There is no active drainage. This was ellipsed to size down and sent to pathology labeled sinus tract left ankle for path and micro. Next bone biopsy was taken using the jamshidi needle again divided for microbiology and pathology. Rongeur and curette was used to debride the additional soft tissues and periosteum off the distal part of the lateral malleolus. Next a 4 mm oval kan was used to freshen the bone and get down to good bleeding surfaces along the lateral malleolus. Intraoperative mini C-arm image was used to document the debridement. The tourniquet was released, once the biopsies were taken the vancomycin intraoperative antibiotic was administered. Good bleeding bone was confirmed. Next, the wound was irrigated with 6 L of normal saline using cysto tubing. Once this was completed , 130 nylon suture was placed in each end of the wound then a wet to dry dressing was placed, covered with a sterile soft dressing and Thomas wrap. All counts were correct. The patient was awoken from anesthesia and taken to the postoperative unit in good condition. There were no immediate complications from this procedure. Complications: none Condition: stable Disposition: PACU Plan for aftercare: Patient will be partial weight-bearing using a boot and crutches he will offload as much as possible. He will follow up in the wound clinic for application of a negative pressure type dressing continued wound care. He will be started on empiric antibiotics based on his previous cultures which would be doxycycline. His intraoperative cultures from today will be followed up and treated as indicated. Patient will follow up in orthopedic clinic in 10 days for wound check
--- NOTE | 2018-11-08 09:15 | SUR.PHASEI ---
Remains stable, Denies pain/nausea; Resp unlabored, skin warm and dry. Pleasant; tolerated PO intake well. Thomas wrap continues to be CDI w/ice to site. Dr. Oreilly here speaking to patient.
[2018-11-08] MEDS: SODIUM CHLORIDE IRRIG SOLUTION 3,000 ML 3000 ML IRR (09:20)
== END 2018-11-08 10:05 | disposition home or self-care (01) ==
PROVIDERS: PCP Family Medicine; Visit Provider Orthopaedic Surgery Foot and Ankle Surgery
PROC: (CPT 20245; principal; 2018-11-08 07:45)
DX: L97.324 Non-pressure chronic ulcer of left ankle with necrosis of bone (principal); D47.2 Monoclonal gammopathy; E03.9 Hypothyroidism, unspecified
CPT/HCPCS: 20245; 11044; 36415; 80048; 85048; 85651; 86140; 87070; 87075; 87102; 87116; 87181; 87186; 87205; 88305; J2704; J3010; J3370

== ENCOUNTER → 2018-11-10 09:59 | Outpatient (CLI) | payer MEDICARE, OTHER, SELFPAY | PROVIDERS: PCP Family Medicine; Visit Provider Family Medicine | DX: I87.2 Venous insufficiency (chronic) (peripheral) (principal); L97.326 Non-pressure chronic ulcer of left ankle with bone involvement without evidence of necrosis; M89.8X7 Other specified disorders of bone, ankle and foot; G90.09 Other idiopathic peripheral autonomic neuropathy | CPT/HCPCS: 97607; 99213 ==

== ENCOUNTER → 2018-11-15 13:19 | Outpatient (CLI) | payer MEDICARE, OTHER, SELFPAY | PROVIDERS: PCP Family Medicine; Visit Provider Family Medicine | DX: I87.2 Venous insufficiency (chronic) (peripheral) (principal); G90.09 Other idiopathic peripheral autonomic neuropathy; L97.326 Non-pressure chronic ulcer of left ankle with bone involvement without evidence of necrosis; M89.8X7 Other specified disorders of bone, ankle and foot | CPT/HCPCS: 11042; 97607 ==

== ENCOUNTER → 2018-11-19 12:57 | Outpatient (CLI) | payer MEDICARE, OTHER, SELFPAY | PROVIDERS: PCP Family Medicine; Visit Provider Family Medicine | DX: I87.2 Venous insufficiency (chronic) (peripheral) (principal); G90.09 Other idiopathic peripheral autonomic neuropathy; L97.326 Non-pressure chronic ulcer of left ankle with bone involvement without evidence of necrosis; M89.8X7 Other specified disorders of bone, ankle and foot; L03.116 Cellulitis of left lower limb; I96 Gangrene, not elsewhere classified | CPT/HCPCS: 11043; 97607 ==

== ENCOUNTER → 2018-11-22 10:52 | Outpatient (CLI) | payer MEDICARE, OTHER, SELFPAY | PROVIDERS: PCP Family Medicine; Visit Provider Family Medicine | DX: L97.321 Non-pressure chronic ulcer of left ankle limited to breakdown of skin (principal); G90.09 Other idiopathic peripheral autonomic neuropathy; M79.672 Pain in left foot | CPT/HCPCS: 99212 ==

== ENCOUNTER → 2018-11-25 10:57 | Outpatient (CLI) | payer MEDICARE, OTHER, SELFPAY | PROVIDERS: PCP Family Medicine; Visit Provider Family Medicine | DX: L97.321 Non-pressure chronic ulcer of left ankle limited to breakdown of skin (principal); G90.9 Disorder of the autonomic nervous system, unspecified | CPT/HCPCS: 97607 ==

== ENCOUNTER → 2018-11-29 10:57 | Outpatient (CLI) | payer MEDICARE, OTHER, SELFPAY | PROVIDERS: PCP Family Medicine; Visit Provider Podiatrist Primary Podiatric Medicine | DX: G90.9 Disorder of the autonomic nervous system, unspecified (principal); L97.321 Non-pressure chronic ulcer of left ankle limited to breakdown of skin; M89.8X7 Other specified disorders of bone, ankle and foot | CPT/HCPCS: 11042; 97607 ==

== ENCOUNTER → 2018-12-02 13:31 | Outpatient (CLI) | payer MEDICARE, OTHER, SELFPAY | PROVIDERS: PCP Family Medicine; Visit Provider Family Medicine | DX: L97.322 Non-pressure chronic ulcer of left ankle with fat layer exposed (principal); G90.9 Disorder of the autonomic nervous system, unspecified | CPT/HCPCS: 97607 ==

== ENCOUNTER → 2018-12-06 10:51 | Outpatient (CLI) | payer MEDICARE, OTHER, SELFPAY ==
[2018-12-06 13:54] LABS: Add Manual Diff / Slide Review NO; Basophils Absolute Auto 0 /uL (0-100); Basophils Percent Auto 0.4 % (0-2); Eosinophils Absolute Auto 400 /uL (0-450); Eosinophils Percent Auto 4.3 % (2-4); Hematocrit 46.5 % (41-53); Hemoglobin 15.9 g/dL (13.5-17.5); Lymphocytes Absolute Auto 1500 /uL (1100-4500); Lymphocytes Percent Auto 17.8 % (25-40); Mean Corpuscular HGB Conc 34.2 % (30-36); Mean Corpuscular Hemoglobin 32.5 PG (26-34); Mean Corpuscular Volume 95.1 fL (80-100); Monocytes Absolute Auto 800 /uL (0-900); Monocytes Percent Auto 9.1 % (3-14); Neutrophils Absolute Auto 5800 /uL (1500-7000); Neutrophils Percent Auto 68.4 % (50-75); Platelet Count 152 X10^3/uL (150-400); Red Blood Cell Count 4.89 X10^6/uL (4.5-5.9); Red Cell Distribution Width 13.9 % (11.6-14.8); White Blood Cell Count 8.5 X10^3/uL (4.5-11.0)
[2018-12-06 14:09] LABS: C-Reactive Protein Quant 0.8 mg/dL (<1.0)
[2018-12-06 14:38] LABS: Erythrocyte Sedimentation Rate 3 MM/HR (0-15)
== END ==
PROVIDERS: PCP Family Medicine; Visit Provider Family Medicine
DX: L08.9 Local infection of the skin and subcutaneous tissue, unspecified (principal)
CPT/HCPCS: 11042; 36415; 85025; 85651; 86140; 87070; 87075; 87077; 87147; 87186; 87205; 99213

== ENCOUNTER → 2018-12-06 15:00 | Outpatient (REF) | payer MEDICARE, OTHER, SELFPAY | LOC: LAB 15:00 | PROVIDERS: PCP Family Medicine; Visit Provider Family Medicine | DX: L08.9 Local infection of the skin and subcutaneous tissue, unspecified (principal) | CPT/HCPCS: 87070; 87075; 87205 ==

== ENCOUNTER → 2018-12-13 10:59 | Outpatient (CLI) | payer MEDICARE, OTHER, SELFPAY | PROVIDERS: PCP Family Medicine; Visit Provider Family Medicine | DX: I87.2 Venous insufficiency (chronic) (peripheral) (principal); G90.09 Other idiopathic peripheral autonomic neuropathy; L97.322 Non-pressure chronic ulcer of left ankle with fat layer exposed | CPT/HCPCS: 99213 ==

== ENCOUNTER 2019-05-31 07:06 | Day surgery (SDC) | payer MEDICARE, OTHER, SELFPAY ==
[2019-05-31 07:50] VITALS: BP 129/85; PULSE 61; RESP 16; TEMP 36.5; O2SAT 98; BMI 28.5
[2019-05-31] MEDS: PROPARACAINE 0.5% OPHTH SOL 2 DROPS EYE-OP (07:50)
[2019-05-31] MEDS: CATARACT EYE COMPOUND (10 DROPS/SYRINGE) 3 DROPS EYE-OP (07:55)
--- NOTE | 2019-05-31 09:03 | PM.PREOP ---
Pre-operative Note Interval Note History & Physical reviewed/Exam performed by Physician: No Changes to H&P: No
--- NOTE | 2019-05-31 09:04 | PM.OP.1 ---
Operative Date/Time/Diagnoses Pre-op diagnosis: Nuclear cataract right eye Procedure & Clinicians Procedure: Cataract Surgery Same procedure as scheduled: Yes Surgeon: Leroy Love Anesthesia Type: MAC +/- and Sedation Operative Notes Procedure in detail: Patient brought to the operating suite. Tetracaine drops placed in the right eye. Patient was prepped and draped in sterile manner. Wire lid speculum was placed in the eye. Betadine drops were placed on the eye. This was irrigated. Lidocaine jelly was placed on the eye. A paracentesis port was created with a side-port blade. 0.1 mL 1% preservative free lidocaine was injected into the anterior chamber. The anterior chamber was deepened with viscoelastic. 2.6 mm keratome was used to create a temporal clear corneal incision. Cystotome and Utrata forceps were used to create continuous tear capsulorrhexis. Balanced salt solution was used to hydro dissect the nucleus. The phacoemulsification handpiece was inserted and the nucleus was removed using the stop and chop technique. The irrigation aspiration handpiece was inserted and the remaining cortex was removed. Anterior chamber was deepened with viscoelastic. An Royal ZCB00 intraocular lens with a power of 20.0 was injected into the capsular bag. Irrigation aspiration handpiece was inserted and the remaining viscoelastic was removed. Incision was hydrated with balanced salt solution and found to be leak free with pressure with Weck-Jenn sponges. 0.1 mL Vigamox injected anterior chamber. 0.3 mL Kenalog 10 mg was injected subconjunctivally. Lid speculum was removed. The patient left the operating room in excellent condition. Complications: none Condition: stable Disposition: same day surgery
[2019-05-31] MEDS: PHENYLEPHRINE/LIDOCAINE VIAL (OR) 0.2 ML EYE-OP (09:18)
[2019-05-31] MEDS: LIDOCAINE JELLY 2% 5 ML 1 APPLIC TOP (09:19)
[2019-05-31] MEDS: MOXIFLOXACIN INJ 5 MG/ML VIAL EYE-OP (09:19)
[2019-05-31] MEDS: TETRACAINE 0.5% OPHTH DROPS 4 ML 2 DROPS EYE-OP (09:19)
[2019-05-31] MEDS: CHONDROIDTIN/SOD HYALURONATE 1.05 ML SYRINGE INTRAOCULA (09:19)
[2019-05-31] MEDS: TRIAMCINOLONE 50 MG/5 ML VIAL INJ (09:19)
[2019-05-31] MEDS: BALANCED SALT IRRIG SOLN NO.2 500 ML, EPINEPHrine 1 MG IRR (09:20)
[2019-05-31 09:38] VITALS: BP 132/80; PULSE 60; RESP 15; TEMP 36.4; O2SAT 98
== END 2019-05-31 09:49 | disposition home or self-care (01) ==
LOC: OR 07:08
PROVIDERS: PCP Family Medicine; Visit Provider Ophthalmology
PROC: (CPT 66984; principal; 2019-05-31 09:15)
DX: H25.11 Age-related nuclear cataract, right eye (principal); I10 Essential (primary) hypertension; E78.00 Pure hypercholesterolemia, unspecified; F41.9 Anxiety disorder, unspecified; I25.2 Old myocardial infarction
CPT/HCPCS: 66984; J0171; J2250; J3301

== ENCOUNTER 2019-07-05 09:33 | Day surgery (SDC) | payer MEDICARE, OTHER, SELFPAY ==
[2019-07-05] MEDS: PROPARACAINE 0.5% OPHTH SOL 2 DROPS EYE-OP (09:54)
[2019-07-05] MEDS: CATARACT EYE COMPOUND (10 DROPS/SYRINGE) 3 DROPS EYE-OP (09:59)
[2019-07-05 10:00] VITALS: BMI 29.2
[2019-07-05 10:05] VITALS: BP 115/71; PULSE 65; RESP 15; TEMP 36.6; O2SAT 96
--- NOTE | 2019-07-05 10:35 | PM.PREOP ---
Pre-operative Note Interval Note History & Physical reviewed/Exam performed by Physician: No Changes to H&P: No
--- NOTE | 2019-07-05 10:36 | PM.OP.1 ---
Operative Date/Time/Diagnoses Pre-op diagnosis: Nuclear Cataract Left eye Post-op diagnosis: same Procedure & Clinicians Surgeon: Leroy Love Anesthesia Type: MAC +/- and Sedation Operative Notes Procedure in detail: Patient brought to the operating suite. Tetracaine drops placed in the left eye. Patient was prepped and draped in sterile manner. Wire lid speculum was placed in the eye. Betadine drops were placed on the eye. This was irrigated. Lidocaine jelly was placed on the eye. A paracentesis port was created with a side-port blade. 0.1 mL 1% preservative free lidocaine was injected into the anterior chamber. The anterior chamber was deepened with viscoelastic. 2.6 mm keratome was used to create a temporal clear corneal incision. Cystotome and Utrata forceps were used to create continuous tear capsulorrhexis. Balanced salt solution was used to hydro dissect the nucleus. The phacoemulsification handpiece was inserted and the nucleus was removed using the stop and chop technique. The irrigation aspiration handpiece was inserted and the remaining cortex was removed. Anterior chamber was deepened with viscoelastic. An Royal ZCB00 intraocular lens with a power of 20.0 was injected into the capsular bag. Irrigation aspiration handpiece was inserted and the remaining viscoelastic was removed. Incision was hydrated with balanced salt solution and found to be leak free with pressure with Weck-Jenn sponges. 0.1 mL Vigamox injected anterior chamber. 0.3 mL Kenalog 10 mg was injected subconjunctivally. Lid speculum was removed. The patient left the operating room in excellent condition. Complications: none Post-operative Condition: stable Disposition: same day surgery
--- NOTE | 2019-07-05 11:04 | SUR.OPER ---
Supine on eye stretcher, head on extension cradle secured with tape. Arms tucked at sides with blanket. Pillow under knees.
[2019-07-05] MEDS: CHONDROIDTIN/SOD HYALURONATE 1.05 ML SYRINGE INTRAOCULA (11:06)
[2019-07-05] MEDS: LIDOCAINE JELLY 2% 5 ML 1 APPLIC TOP (11:06)
[2019-07-05] MEDS: TETRACAINE 0.5% OPHTH DROPS 4 ML 2 DROPS EYE-OP (11:07)
[2019-07-05] MEDS: TRIAMCINOLONE 50 MG/5 ML VIAL INJ (11:07)
[2019-07-05] MEDS: MOXIFLOXACIN INJ 5 MG/ML VIAL EYE-OP (11:07)
[2019-07-05] MEDS: PHENYLEPHRINE/LIDOCAINE VIAL (OR) 0.2 ML EYE-OP (11:07)
[2019-07-05] MEDS: BALANCED SALT IRRIG SOLN NO.2 500 ML, EPINEPHrine 1 MG IRR (11:08)
[2019-07-05 11:34] VITALS: BP 106/65; PULSE 68; RESP 16; TEMP 36.2; O2SAT 96
== END 2019-07-05 11:37 ==
PROVIDERS: PCP Family Medicine; Visit Provider Ophthalmology
PROC: (CPT 66984; principal; 2019-07-05 11:15)
DX: H25.12 Age-related nuclear cataract, left eye (principal); I10 Essential (primary) hypertension; F41.9 Anxiety disorder, unspecified
CPT/HCPCS: 66984; J0171; J2250; J3301

== ENCOUNTER → 2019-10-20 14:12 | Outpatient (CLI) | payer MEDICARE, OTHER, SELFPAY | PROVIDERS: PCP Family Medicine; Visit Provider Family Medicine | DX: I73.9 Peripheral vascular disease, unspecified (principal); L97.525 Non-pressure chronic ulcer of other part of left foot with muscle involvement without evidence of necrosis; L97.415 Non-pressure chronic ulcer of right heel and midfoot with muscle involvement without evidence of necrosis; L97.521 Non-pressure chronic ulcer of other part of left foot limited to breakdown of skin; G90.09 Other idiopathic peripheral autonomic neuropathy; L08.9 Local infection of the skin and subcutaneous tissue, unspecified; R60.0 Localized edema | CPT/HCPCS: 87070; 87075; 87077; 87147; 87186; 87205; 97597; 99214 ==

== ENCOUNTER → 2019-10-25 10:26 | Outpatient (CLI) | payer MEDICARE, OTHER, SELFPAY ==
--- NOTE | 2019-10-25 | DI.RAD.S_ITS ---
PROCEDURE: XR TOE LT MIN 2V INDICATIONS: EVAL OSTEO TECHNIQUE: 3 views of the left toe(s) acquired. COMPARISON: None. FINDINGS: Bones: No fractures or dislocations. No suspicious bony lesions. Marginal lucency seen at the first MTP joint, as well as the PIP and DIP joints of the fourth toe. Soft tissues: No suspicious soft tissue densities. IMPRESSION: No focal osseous destruction to suggest advanced osteomyelitis. If there is persistent clinical concern, continued short interval radiographic followup or contrast enhanced MRI could be performed to assess for early infection. Dictated by: Martin Mahmood M.D. on 10/25/2019 at 14:47 Approved by: Martin Mahmood M.D. on 10/25/2019 at 14:48
--- NOTE | 2019-10-25 | DI.RAD.S_ITS ---
PROCEDURE: XR CALCANEOUS RT MIN 2V INDICATIONS: EVAL OSTEO/RIGHT POSTERION LAT. CALCANEUS ULCER TECHNIQUE: Two views of the calcaneus were acquired. COMPARISON: None. FINDINGS: Bones: No fractures or dislocations. No suspicious bony lesions. Plantar calcaneal spur. Diffuse midfoot joint degeneration. Soft tissues: No suspicious calcifications. Achilles tendon appears normal. IMPRESSION: No focal osseous destruction to suggest advanced osteomyelitis. If there is persistent clinical concern, continued short interval radiographic followup or contrast enhanced MRI could be performed to assess for early infection. Dictated by: Martin Mahmood M.D. on 10/25/2019 at 14:48 Approved by: Martin Mahmood M.D. on 10/25/2019 at 14:49
== END ==
PROVIDERS: Family Provider Specialist; PCP Family Medicine; Visit Provider Family Medicine
DX: I73.9 Peripheral vascular disease, unspecified (principal); L97.415 Non-pressure chronic ulcer of right heel and midfoot with muscle involvement without evidence of necrosis; L97.525 Non-pressure chronic ulcer of other part of left foot with muscle involvement without evidence of necrosis
CPT/HCPCS: 73650; 73660

== ENCOUNTER → 2019-10-28 12:57 | Outpatient (CLI) | payer MEDICARE, OTHER, SELFPAY | PROVIDERS: Family Provider Specialist; PCP Family Medicine; Visit Provider Family Medicine | DX: I73.9 Peripheral vascular disease, unspecified (principal); L97.525 Non-pressure chronic ulcer of other part of left foot with muscle involvement without evidence of necrosis; L97.415 Non-pressure chronic ulcer of right heel and midfoot with muscle involvement without evidence of necrosis; G90.09 Other idiopathic peripheral autonomic neuropathy; L08.9 Local infection of the skin and subcutaneous tissue, unspecified; B95.62 Methicillin resistant Staphylococcus aureus infection as the cause of diseases classified elsewhere; B95.61 Methicillin susceptible Staphylococcus aureus infection as the cause of diseases classified elsewhere | CPT/HCPCS: 97597; 99214 ==

== ENCOUNTER → 2019-11-03 09:36 | Outpatient (CLI) | payer MEDICARE, OTHER, SELFPAY | PROVIDERS: Family Provider Specialist; PCP Family Medicine; Visit Provider Family Medicine | DX: I70.245 Atherosclerosis of native arteries of left leg with ulceration of other part of foot (principal); I70.234 Atherosclerosis of native arteries of right leg with ulceration of heel and midfoot; L97.525 Non-pressure chronic ulcer of other part of left foot with muscle involvement without evidence of necrosis; L97.415 Non-pressure chronic ulcer of right heel and midfoot with muscle involvement without evidence of necrosis; L08.9 Local infection of the skin and subcutaneous tissue, unspecified; G90.09 Other idiopathic peripheral autonomic neuropathy | CPT/HCPCS: 11042; 87070; 87075; 87205; 97597 ==

== ENCOUNTER → 2019-11-10 12:43 | Outpatient (CLI) | payer MEDICARE, OTHER, SELFPAY ==
--- NOTE | 2019-11-10 | DI.MRI.S_ITS ---
PROCEDURE: MR FOOT LT WO/W CON INDICATIONS: Non-pressure chronic ulcer TECHNIQUE: Noncontrast coronal T1 spin echo and STIR, sagittal T1 spin echo with fat saturation and STIR, axial T1 spin echo and T2 fast spin echo with fat saturation. After the administration of contrast, axial/sagittal/coronal T1 spin echo with fat saturation through the left foot. COMPARISON: [facility], CR, XR TOE LT MIN 2V, 10/25/2019, 10:49. [facility], CR, XR CALCANEOUS RT MIN 2V, 10/25/2019, 10:54. [facility], MR, MR FOOT LT WO/W CON, 07/30/2018, 19:01. FINDINGS: Image quality: Suboptimal due to failure of fat suppression of the distal toes. Bones: There is T2 hyperintensity involving the proximal phalanx of the third toe. There is questionable loss of the marrow fat signal intensity on T1-weighted images although this is technically indeterminate. Adjacent soft tissue edema and mild flexor tenosynovitis There is first MTP joint degeneration with central and marginal marrow signal changes, possibly cysts or less likely erosions (given the absence of enhancement) No abnormal intraosseous enhancement. Soft tissues: Dorsal midfoot and forefoot subcutaneous edema No soft tissue masses are visualized. The scanned muscles demonstrate normal overall bulk and internal signal. Subcutaneous tissues appear normal as well. No abnormal soft tissue enhancement. IMPRESSION: Mild marrow signal changes present at the proximal phalanx of the third toe raising possibility of osteomyelitis however technically indeterminate and could be reactive in nature. This is also suboptimal evaluated given failure of fat suppression. Please correlate clinically to clinical exam findings. If necessary, continued surveillance with short interval serial radiographs could be performed. Elsewhere, no specific marrow signal changes to suggest osteomyelitis. Dorsal midfoot and forefoot subcutaneous nonspecific cellulitis. First MTP joint degeneration Dictated by: Martin Mahmood M.D. on 11/10/2019 at 15:20 Approved by: Martin Mahmood M.D. on 11/10/2019 at 15:36
== END ==
PROVIDERS: Family Provider Specialist; PCP Family Medicine; Referring Provider Family Medicine; Visit Provider Family Medicine
DX: L97.523 Non-pressure chronic ulcer of other part of left foot with necrosis of muscle (principal); L97.415 Non-pressure chronic ulcer of right heel and midfoot with muscle involvement without evidence of necrosis; I73.9 Peripheral vascular disease, unspecified; G90.09 Other idiopathic peripheral autonomic neuropathy; M19.072 Primary osteoarthritis, left ankle and foot; L03.116 Cellulitis of left lower limb; L08.9 Local infection of the skin and subcutaneous tissue, unspecified; R60.0 Localized edema
CPT/HCPCS: 73720; 97597

== ENCOUNTER → 2019-11-10 13:12 | Outpatient (CLI) | payer MEDICARE, OTHER, SELFPAY | PROVIDERS: Family Provider Specialist; PCP Family Medicine; Referring Provider Family Medicine; Visit Provider Family Medicine | DX: L97.523 Non-pressure chronic ulcer of other part of left foot with necrosis of muscle (principal); L97.415 Non-pressure chronic ulcer of right heel and midfoot with muscle involvement without evidence of necrosis; G90.09 Other idiopathic peripheral autonomic neuropathy; I73.9 Peripheral vascular disease, unspecified; L08.9 Local infection of the skin and subcutaneous tissue, unspecified; R60.0 Localized edema | CPT/HCPCS: 97597; 99214 ==

== ENCOUNTER → 2019-11-16 08:32 | Outpatient (CLI) | payer MEDICARE, OTHER, SELFPAY | PROVIDERS: Family Provider Specialist; PCP Family Medicine; Referring Provider Family Medicine; Visit Provider Family Medicine | DX: I73.9 Peripheral vascular disease, unspecified (principal); L97.413 Non-pressure chronic ulcer of right heel and midfoot with necrosis of muscle; L97.524 Non-pressure chronic ulcer of other part of left foot with necrosis of bone; L08.9 Local infection of the skin and subcutaneous tissue, unspecified; G90.09 Other idiopathic peripheral autonomic neuropathy | CPT/HCPCS: 99213; 99214 ==

== ENCOUNTER → 2019-11-23 12:43 | Outpatient (CLI) | payer MEDICARE, OTHER, SELFPAY ==
--- NOTE | 2019-11-23 13:21 | DI.MRI.S_ITS ---
PROCEDURE: MR ANKLE LT WO/W CON INDICATIONS: Non-pressure chronic ulcer of right heel TECHNIQUE: Noncontrast sagittal T1 spin echo and T2 fast spin echo with fat saturation, axial proton density fast spin echo and T2 fast spin echo with fat saturation, axial T1 spin echo with fat saturation, coronal T1 spin echo and T2 fast spin echo with fat saturation through the ankle/hindfoot. Post-contrast axial, coronal, and sagittal T1 spin echo with fat saturation through the ankle/hindfoot. COMPARISON: [facility], , MR ANKLE LT WO/W CON, 07/30/2018, 19:45. FINDINGS: Image quality: Excellent. Bones and joints: Osteoarthritic changes throughout ankle, midfoot and hindfoot joints are seen. No fracture or dislocation. No definite marrow edema is seen. No bony erosive changes are noted to suggest osteomyelitis. No abnormal intraosseous enhancement is noted. Medial structures: The posterior tibialis, flexor digitorum longus, and flexor hallucis longus tendons are normal in size with small to moderate amount of fluid distending the flexor tendon sheath concerning for low-grade tenosynovitis. The posterior tibial neurovascular bundle appears normal within the tarsal tunnel, without extrinsic mass effect. The deep layer (anterior and posterior tibiotalar ligaments) and superficial layer (tibionavicular, tibiospring, and tibiocalcaneal ligaments) of the deltoid ligament appear normal. The spring ligament components (superomedial calcaneonavicular, medioplantar oblique calcaneonavicular, and inferoplantar longitudinal ligaments) are intact. Lateral structures: The anterior talofibular, calcaneofibular, and posterior talofibular ligaments appear intact. More superiorly, the anterior and posterior tibiofibular ligaments appear intact, as is the intermalleolar ligament. The tibiofibular syndesmosis is normal in width at 2 mm or less. The peroneus longus and brevis tendons demonstrate normal location and morphology. Adjacent bony peroneal tubercle and retrotrochlear prominence are normal in size. The sinus tarsi demonstrates normal fatty signal, without edema, fibrosis, or cyst formation. Visualized sinus tarsi components (cervical ligament, interosseous talocalcaneal ligament, roots of the inferior extensor retinaculum) appear normal. The calcaneonavicular and calcaneocuboid components of the bifurcate ligament appear intact. The dorsal calcaneocuboid ligament appears intact. Anterior structures: The tibialis anterior, extensor hallucis longus, and extensor digitorum longus tendons appear intact. The dorsal talonavicular ligament appears intact. Posterior and plantar structures: Achilles tendon is intact. Mildly thickened plantar aponeurosis near its plantar calcaneal insertion is seen. Small serration is noted in posterior lateral left heel with mild adjacent edema. No discrete fluid collection is seen. No abductor digiti quinti muscle atrophy to suggest Gonzales neuropathy. IMPRESSION: 1. Suggestion of small ulceration in the left heel with mild adjacent synovitis. No abscess collection is seen. 2. Osteoarthritic changes in the ankle, midfoot and hindfoot joints with no MR evidence of osteomyelitis. 3. Low-grade tenosynovitis involving flexor tendons. 4. Mildly thickened plantar aponeurosis at its plantar calcaneal insertion, which may represent low-grade plantar fasciitis. Dictated by: Berry Alvarado M.D. on 11/23/2019 at 17:52 Approved by: Berry Alvarado M.D. on 11/23/2019 at 18:07
== END ==
PROVIDERS: Family Provider Specialist; PCP Family Medicine; Referring Provider Family Medicine; Visit Provider Family Medicine
DX: M65.872 Other synovitis and tenosynovitis, left ankle and foot (principal); I73.9 Peripheral vascular disease, unspecified; L97.415 Non-pressure chronic ulcer of right heel and midfoot with muscle involvement without evidence of necrosis
CPT/HCPCS: 73723; 97597; 99214; A9579

== ENCOUNTER → 2019-12-07 12:59 | Outpatient (CLI) | payer MEDICARE, OTHER, SELFPAY | PROVIDERS: Family Provider Specialist; PCP Family Medicine; Referring Provider Family Medicine; Visit Provider Family Medicine | DX: L97.526 Non-pressure chronic ulcer of other part of left foot with bone involvement without evidence of necrosis (principal); L97.415 Non-pressure chronic ulcer of right heel and midfoot with muscle involvement without evidence of necrosis; L97.521 Non-pressure chronic ulcer of other part of left foot limited to breakdown of skin; I73.9 Peripheral vascular disease, unspecified; L08.9 Local infection of the skin and subcutaneous tissue, unspecified; M86.172 Other acute osteomyelitis, left ankle and foot; G90.09 Other idiopathic peripheral autonomic neuropathy | CPT/HCPCS: 97597; 99214 ==

== ENCOUNTER → 2020-04-10 12:37 | Outpatient (CLI) | payer MEDICARE, OTHER, SELFPAY ==
[2020-04-10 13:12] LABS: Add Manual Diff / Slide Review NO; Basophils Absolute Auto 0 /uL (0-100); Basophils Percent Auto 0.2 % (0-2); Eosinophils Absolute Auto 300 /uL (0-450); Eosinophils Percent Auto 3.5 % (2-4); Hematocrit 46.1 % (41-53); Hemoglobin 15.7 g/dL (13.5-17.5); Lymphocytes Absolute Auto 1600 /uL (1100-4500); Lymphocytes Percent Auto 18.4 % (25-40); Mean Corpuscular HGB Conc 34.2 % (30-36); Mean Corpuscular Volume 93.7 fL (80-100); Monocytes Absolute Auto 800 /uL (0-900); Monocytes Percent Auto 8.6 % (3-14); Neutrophils Absolute Auto 6100 /uL (1500-7000); Neutrophils Percent Auto 69.3 % (50-75); Platelet Count 158 X10^3/uL (150-400); Red Blood Cell Count 4.92 X10^6/uL (4.5-5.9); Red Cell Distribution Width 13.6 % (11.6-14.8); White Blood Cell Count 8.7 X10^3/uL (4.5-11.0)
[2020-04-10 15:02] LABS: Free T4, Direct Thyroxine 0.76 ng/dL (0.78-2.19)
[2020-04-10 15:16] LABS: Thyroid Stimulating Hormone 4.54 uIU/mL (0.47-4.68)
[2020-04-10 16:00] LABS: Alanine Aminotransferase 26 IU/L (<50); Albumin 4.7 g/dL (3.5-5.0); Albumin Globulin Ratio 1.7 (1.0-2.8); Alkaline Phosphatase 83 U/L (38-126); Aspartate Aminotransferase 29 IU/L (17-59); Bilirubin Total 0.5 mg/dL (0.2-1.3); Blood Urea Nitrogen 14 mg/dL (9-20); Calcium 9.9 mg/dL (8.4-10.2); Carbon Dioxide 20 mmol/L (22-32); Chloride 105 mmol/L (98-107); Estimated Glomerular Filt Rate > 60.0 mL/min (>60); Globulin 2.7 g/dL (1.7-4.1); Glucose 86 mg/dL (80-110); HEMOLYSIS < 15 (0-50); Potassium 4.1 mmol/L (3.4-5.1); Sodium 139 mmol/L (137-145); Total Protein 7.4 g/dL (6.3-8.2)
== END ==
PROVIDERS: Family Provider Specialist; PCP Family Medicine; Referring Provider Internal Medicine; Visit Provider Internal Medicine
DX: R53.83 Other fatigue (principal)
CPT/HCPCS: 36415; 80053; 84439; 84443; 85025

== ENCOUNTER → 2020-05-29 11:58 | Outpatient (CLI) | payer MEDICARE, OTHER, SELFPAY | PROVIDERS: Family Provider Specialist; PCP Family Medicine; Referring Provider Family Medicine; Visit Provider Family Medicine | DX: G90.09 Other idiopathic peripheral autonomic neuropathy (principal); L97.511 Non-pressure chronic ulcer of other part of right foot limited to breakdown of skin; L08.9 Local infection of the skin and subcutaneous tissue, unspecified; I73.9 Peripheral vascular disease, unspecified; Y79.8 Miscellaneous orthopedic devices associated with adverse incidents, not elsewhere classified | CPT/HCPCS: 87070; 87075; 87077; 87186; 87205; 97597; 99213; 99214 ==

== ENCOUNTER → 2020-06-05 13:47 | Outpatient (CLI) | payer MEDICARE, OTHER, SELFPAY | PROVIDERS: Family Provider Specialist; PCP Family Medicine; Referring Provider Family Medicine; Visit Provider Family Medicine | DX: G90.09 Other idiopathic peripheral autonomic neuropathy (principal); L97.511 Non-pressure chronic ulcer of other part of right foot limited to breakdown of skin; L97.521 Non-pressure chronic ulcer of other part of left foot limited to breakdown of skin; I73.9 Peripheral vascular disease, unspecified; Y79.8 Miscellaneous orthopedic devices associated with adverse incidents, not elsewhere classified; M20.5X1 Other deformities of toe(s) (acquired), right foot; M20.5X2 Other deformities of toe(s) (acquired), left foot | CPT/HCPCS: 11042; 97597; 99214 ==

== ENCOUNTER → 2020-07-27 09:11 | Outpatient (CLI) | payer MEDICARE, OTHER, SELFPAY | PROVIDERS: Family Provider Specialist; PCP Family Medicine; Referring Provider Family Medicine; Visit Provider Family Medicine | DX: G90.09 Other idiopathic peripheral autonomic neuropathy (principal); L97.521 Non-pressure chronic ulcer of other part of left foot limited to breakdown of skin; I73.9 Peripheral vascular disease, unspecified; L08.9 Local infection of the skin and subcutaneous tissue, unspecified; M20.5X2 Other deformities of toe(s) (acquired), left foot | CPT/HCPCS: 11042; 87070; 87077; 87147; 87186; 87205; 99213; 99214 ==

== ENCOUNTER → 2020-08-09 09:23 | Outpatient (CLI) | payer MEDICARE, OTHER, SELFPAY | PROVIDERS: Family Provider Specialist; PCP Family Medicine; Referring Provider Family Medicine; Visit Provider Family Medicine | DX: G90.09 Other idiopathic peripheral autonomic neuropathy (principal); L97.521 Non-pressure chronic ulcer of other part of left foot limited to breakdown of skin; I73.9 Peripheral vascular disease, unspecified; M20.5X2 Other deformities of toe(s) (acquired), left foot | CPT/HCPCS: 11042 ==

== ENCOUNTER → 2020-08-16 11:49 | Outpatient (CLI) | payer MEDICARE, OTHER, SELFPAY ==
--- NOTE | 2020-08-16 | DI.RAD.S_ITS ---
PROCEDURE: XR FOOT LT MIN 3V INDICATIONS: EVAL OSTEOMYELITIS TECHNIQUE: 3 views of the foot were acquired. COMPARISON: None. FINDINGS: Bones: No fractures or dislocations. No suspicious bony lesions. Prominent metatarsus primus varus and hallux valgus. Prior amputation 3rd digit. No sign of trauma or osteomyelitis. Soft tissues: No tibiotalar joint effusion. Achilles tendon appears normal. IMPRESSION: Prominent metatarsus primus varus and hallux valgus morphology in this patient with prior anti T brown of the 3rd digit from the proximal 1st phalanx metadiaphyseal junction distally. Dictated by: Eyad Vázquez M.D. on 08/16/2020 at 13:22 Approved by: Eyad Vázquez M.D. on 08/16/2020 at 13:23
== END ==
PROVIDERS: Family Provider Specialist; PCP Family Medicine; Referring Provider Family Medicine; Visit Provider Family Medicine
DX: L97.521 Non-pressure chronic ulcer of other part of left foot limited to breakdown of skin (principal); M20.32 Hallux varus (acquired), left foot; M20.12 Hallux valgus (acquired), left foot
CPT/HCPCS: 73630

== ENCOUNTER → 2020-08-16 13:40 | Outpatient (CLI) | payer MEDICARE, OTHER, SELFPAY | PROVIDERS: Family Provider Specialist; PCP Family Medicine; Referring Provider Family Medicine; Visit Provider Family Medicine | DX: G90.09 Other idiopathic peripheral autonomic neuropathy (principal); L97.521 Non-pressure chronic ulcer of other part of left foot limited to breakdown of skin; I73.9 Peripheral vascular disease, unspecified; M20.5X2 Other deformities of toe(s) (acquired), left foot; M20.12 Hallux valgus (acquired), left foot | CPT/HCPCS: 11042; 73630; 99213 ==

== ENCOUNTER → 2020-08-22 11:45 | Outpatient (CLI) | payer MEDICARE, OTHER, SELFPAY | PROVIDERS: Family Provider Specialist; PCP Family Medicine; Referring Provider Family Medicine; Visit Provider Family Medicine | DX: G90.09 Other idiopathic peripheral autonomic neuropathy (principal); L97.521 Non-pressure chronic ulcer of other part of left foot limited to breakdown of skin; I73.9 Peripheral vascular disease, unspecified; M20.5X2 Other deformities of toe(s) (acquired), left foot | CPT/HCPCS: 11042 ==

== ENCOUNTER → 2020-09-05 12:23 | Outpatient (CLI) | payer MEDICARE, OTHER, SELFPAY | PROVIDERS: Family Provider Specialist; PCP Family Medicine; Referring Provider Family Medicine; Visit Provider Family Medicine | DX: G90.09 Other idiopathic peripheral autonomic neuropathy (principal); L97.521 Non-pressure chronic ulcer of other part of left foot limited to breakdown of skin; I73.9 Peripheral vascular disease, unspecified; M20.5X2 Other deformities of toe(s) (acquired), left foot | CPT/HCPCS: 11042 ==

== ENCOUNTER → 2020-10-03 14:23 | Outpatient (CLI) | payer MEDICARE, OTHER, SELFPAY | PROVIDERS: Family Provider Specialist; PCP Family Medicine; Referring Provider Family Medicine; Visit Provider Family Medicine | DX: G90.09 Other idiopathic peripheral autonomic neuropathy (principal); L97.521 Non-pressure chronic ulcer of other part of left foot limited to breakdown of skin; I73.9 Peripheral vascular disease, unspecified; M20.5X2 Other deformities of toe(s) (acquired), left foot | CPT/HCPCS: 11042 ==

== ENCOUNTER → 2020-10-11 14:14 | Outpatient (CLI) | payer MEDICARE, OTHER, SELFPAY | PROVIDERS: Family Provider Specialist; PCP Family Medicine; Referring Provider Family Medicine; Visit Provider Family Medicine | DX: G90.09 Other idiopathic peripheral autonomic neuropathy (principal); L97.524 Non-pressure chronic ulcer of other part of left foot with necrosis of bone; I73.9 Peripheral vascular disease, unspecified; M20.5X2 Other deformities of toe(s) (acquired), left foot; L03.032 Cellulitis of left toe | CPT/HCPCS: 11044; 87070; 87075; 87077; 87147; 87176; 87186; 87205; 99213; 99215 ==

== ENCOUNTER → 2020-10-17 15:03 | Outpatient (CLI) | payer MEDICARE, OTHER, SELFPAY | PROVIDERS: Family Provider Specialist; PCP Family Medicine; Referring Provider Family Medicine; Visit Provider Family Medicine | DX: G90.09 Other idiopathic peripheral autonomic neuropathy (principal); L97.524 Non-pressure chronic ulcer of other part of left foot with necrosis of bone; I73.9 Peripheral vascular disease, unspecified; M20.5X2 Other deformities of toe(s) (acquired), left foot; M86.672 Other chronic osteomyelitis, left ankle and foot | CPT/HCPCS: 11042; 36415; 80053; 85025; 85651; 86140; 99215 ==

== ENCOUNTER → 2020-10-17 16:26 | Outpatient (CLI) | payer MEDICARE, OTHER, SELFPAY ==
[2020-10-17 17:18] LABS: Add Manual Diff / Slide Review NO; Basophils Absolute Auto 0 /uL (0-100); Basophils Percent Auto 0.5 % (0-2); Eosinophils Absolute Auto 500 /uL (0-450); Eosinophils Percent Auto 5.7 % (2-4); Hematocrit 44.8 % (41-53); Hemoglobin 15.4 g/dL (13.5-17.5); Lymphocytes Absolute Auto 1500 /uL (1100-4500); Lymphocytes Percent Auto 18.7 % (25-40); Mean Corpuscular HGB Conc 34.3 % (30-36); Mean Corpuscular Hemoglobin 32.9 PG (26-34); Mean Corpuscular Volume 95.9 fL (80-100); Monocytes Absolute Auto 800 /uL (0-900); Monocytes Percent Auto 9.9 % (3-14); Neutrophils Absolute Auto 5200 /uL (1500-7000); Neutrophils Percent Auto 65.2 % (50-75); Platelet Count 149 X10^3/uL (150-400); Red Blood Cell Count 4.67 X10^6/uL (4.5-5.9); White Blood Cell Count 7.9 X10^3/uL (4.5-11.0)
[2020-10-17 17:50] LABS: Erythrocyte Sedimentation Rate 1 MM/HR (0-15)
[2020-10-17 18:19] LABS: Alanine Aminotransferase 28 IU/L (<50); Albumin 4.4 g/dL (3.5-5.0); Albumin Globulin Ratio 1.6 (1.0-2.8); Alkaline Phosphatase 71 U/L (38-126); Aspartate Aminotransferase 33 IU/L (17-59); BUN Creatinine Ratio 21.9 (6-22); Bilirubin Total 0.3 mg/dL (0.2-1.3); Blood Urea Nitrogen 23 mg/dL (9-20); Calcium 9.4 mg/dL (8.4-10.2); Carbon Dioxide 27 mmol/L (22-32); Chloride 105 mmol/L (98-107); Estimated Glomerular Filt Rate > 60.0 mL/min (>60); Globulin 2.7 g/dL (1.7-4.1); Glucose 95 mg/dL (80-110); HEMOLYSIS < 15 (0-50); Potassium 3.8 mmol/L (3.4-5.1); Sodium 138 mmol/L (137-145); Total Protein 7.1 g/dL (6.3-8.2)
[2020-10-17 18:20] LABS: C-Reactive Protein Quant < 0.5 mg/dL (<1.0)
== END ==
PROVIDERS: Family Provider Specialist; PCP Family Medicine; Referring Provider Family Medicine; Visit Provider Family Medicine
DX: L97.521 Non-pressure chronic ulcer of other part of left foot limited to breakdown of skin (principal)
CPT/HCPCS: 36415; 80053; 85025; 85651; 86140

== ENCOUNTER → 2020-10-25 13:06 | Outpatient (CLI) | payer MEDICARE, OTHER, SELFPAY | PROVIDERS: Family Provider Specialist; PCP Family Medicine; Referring Provider Family Medicine; Visit Provider Family Medicine | DX: E11.621 Type 2 diabetes mellitus with foot ulcer (principal); L97.511 Non-pressure chronic ulcer of other part of right foot limited to breakdown of skin; L97.521 Non-pressure chronic ulcer of other part of left foot limited to breakdown of skin; S81.801A Unspecified open wound, right lower leg, initial encounter; L03.115 Cellulitis of right lower limb; L03.032 Cellulitis of left toe; E11.40 Type 2 diabetes mellitus with diabetic neuropathy, unspecified; R60.0 Localized edema; L03.031 Cellulitis of right toe | CPT/HCPCS: 11042 ==

== ENCOUNTER → 2020-11-01 13:45 | Outpatient (CLI) | payer MEDICARE, OTHER, SELFPAY | PROVIDERS: Family Provider Specialist; PCP Family Medicine; Referring Provider Family Medicine; Visit Provider Family Medicine | DX: G90.09 Other idiopathic peripheral autonomic neuropathy (principal); L97.524 Non-pressure chronic ulcer of other part of left foot with necrosis of bone; I73.9 Peripheral vascular disease, unspecified; M20.5X2 Other deformities of toe(s) (acquired), left foot; M86.672 Other chronic osteomyelitis, left ankle and foot | CPT/HCPCS: 11042 ==

== ENCOUNTER → 2020-11-21 09:31 | Outpatient (CLI) | payer MEDICARE, OTHER, SELFPAY ==
[2020-11-21 12:16] LABS: COVID19 -Nasal RAPID Negative (Negative)
== END ==
PROVIDERS: Family Provider Specialist; PCP Family Medicine; Visit Provider Student in an Organized Health Care Education/Training Program
DX: Z20.822 Contact with and (suspected) exposure to COVID-19 (principal)
CPT/HCPCS: 87635; C9803

== ENCOUNTER 2020-11-23 12:02 | Day surgery (SDC) | payer MEDICARE, OTHER, SELFPAY ==
[2020-11-23] VITALS (8 sets, daily range): BP systolic 103–142; BP diastolic 67–83; PULSE 61–72; RESP 7–16; TEMP 36.2–36.4; O2SAT 2–98; BMI 25.9
--- NOTE | 2020-11-23 | PATH_ITS ---
[facility] Accession Number: [id number] . 01 Material submitted: . toe - LEFT GREAT TOE . 01 Clinical history: . LEFT GREAT TOE PARTIAL AMPUTATION . 02 Diagnosis: Left Great Toe, Amputation: Disarticulated toe with ulcer and deep soft tissue inflammation. Remodeling bone with hypocellular marrow; no evidence of osteomyelitis. No evidence of neoplasm. [facility] 11/28/2020 1141 Local . 02 Electronically signed: . Lee Jackson MD, PhD, Pathologist NPI- [id number] . 01 Gross description: . The specimen is received in formalin, labeled left great toe, and consists of a 3.8 x 3.0 x 2.2 cm disarticulated hallux with a parker-yellow hyperkeratotic unguis. The skin is parker-pink with a 1.2 x 0.6 x 0.1 cm, firm, parker-brown lesion located at the distal tip, 3.0 cm from the skin margin, and 2.8 cm from the bone margin. The margin is inked blue. The specimen is sectioned to reveal parker trabeculated bone with no lesion involvement; however, the lesion does abut the bone. [employer]isher [employer] sections are submitted. A1: Bone margin, en face (following decalcification). A2: Cross-section to include lesion in bone (following decalcification). A3: Skin and soft tissue margin (blue) and lesion. ([id number]) /NUZHAT 11/25/2020 0711 Local . 02 Pathologist provided ICD-10: L97.529 . 02 CPT . 868076, [id number] Performed at: [address], [place], [place] [id number] MD Ferdinand Lin MD Phone: [phone] Performed at: 02 [facility] [address] [place] [id number] MD Christel Menezes MD Phone: [phone]
[2020-11-23] MEDS: LACTATED RINGERS 1,000 ML 42 ML IV (12:58)
[2020-11-23] MEDS: ACETAMINOPHEN 325 MG TABLET 975 MG PO (12:59)
--- NOTE | 2020-11-23 14:48 | PM.PREOP ---
Pre-operative Note COVID-19 COVID-19 status: Negative Interval Note History & Physical reviewed/Exam performed by Physician: Yes Changes to H&P: No
[2020-11-23] MEDS: CEFAZOLIN 2 GM/100 ML FROZ.PIGGY IV (15:10)
--- NOTE | 2020-11-23 15:30 | SUR.OPER ---
Supine on padded OR bed, head on pillow, arms secured on padded arm boards at <90 degrees abduction, legs uncrossed, safety belt at pelvis, bump under right hip, left leg under control of surgeon, tape over blanket over right lower leg.
[2020-11-23] MEDS: BUPIVACAINE 0.5% W/ EPI (PF) 30 ML VIAL 10 ML INJ (15:39)
--- NOTE | 2020-11-23 19:44 | PM.OP.1 ---
Operative Date/Time/Diagnoses Date of procedure: 11/23/20 Time of procedure: 13:00 Pre-op diagnosis: Skin ulcer left great toe with necrosis of bone Osteomyelitis great toe Gammopathy Post-op diagnosis: same Procedure & Clinicians Procedure: Partial amputation left great toe CPT code 41368 Same procedure as scheduled: Yes Indications: Patient is an 80-year-old male with known gammopathy arterial insufficiency peripheral vascular disease who presents with a long-standing nonhealing ulcer of his left great toe and has evidence of bone necrosis and osteomyelitis on imaging. He has been going to wound care for quite some time but to the bone involvement has been progressing. He was counseled on options including long-term IV antibiotics but he is hoping for a solution that allows him to avoid this. He has been counseled on partial amputation of the left great toe getting back into areas that are not involved. He has previously healed other amputation sites and had a a toe amputation several months ago by vascular surgery [facility] and did well with this. He is indicated for a partial amputation left great toe this will be just proximal to the IP joint to remove the complete distal phalanx that is involved and decrease the prominence of a straight disarticulation. The risks and benefits of the procedure have been discussed with the patient even opportunity to ask questions. The risks of surgery include but are not limited to infection, malunion, nonunion, persistence of pain, damage to nerves and blood vessels, posttraumatic arthritis, DVT, PE, cardiopulmonary complications and . The patient expressed a thorough understanding of the risks and benefits of surgery and has elected to proceed. Consent was signed in the office . Surgeon: Carol Oreilly Click Yes if Unassisted: Yes Anesthesia Type: General and Local Operative Notes Findings: Great toe with a dry ulcer and osteolytic lucency and bone loss a partially of the distal phalanx consistent with osteomyelitis. Mutation was taken down through the IP joint. The condyles of the proximal phalanx were rounded off to decrease prominence. This had the appearance of healthy bleeding bone no appearance of infection at the amputation margin site. Closure Type: primary Specimen(s): other (Great toe was sent for pathology. Bone at the proximal margin of excision was sent for culture) Estimated Blood Loss (mL): 2 Blood products transfused: none Tourniquet time (min): 13 Procedure in detail: Patient was seen in the preoperative area the site of surgery was marked informed consent confirmed. The patient was brought back to the operating room by the anesthesia team. He was positioned supine on operative table. Bony prominences were well padded. Anesthesia was administered. A well-padded thigh tourniquet was placed. The left lower extremities prepped and draped in the standard sterile fashion. A formal time-out procedure was performed confirming the patient's side and site of surgery and minutes duration of appropriate preoperative antibiotics. All were in agreement. Attention was turned to the left great toe. The fluoro unit was brought in and the planned amputation site was marked. A fishmouth amputation was taken over the IP joint and a IP distal phalanx disarticulation was completed next the condyles of the proximal phalanx were isolated in the tissues retracted in the TTS saw used to remove the condyles and around these edges off providing a excellent good contour to the remaining proximal phalanx. The wound was thoroughly irrigated with sterile saline. Tendons were cut and allowed to retract. Neurovascular bundle and were cut and allowed to retract. Tourniquet was released. Hemostasis was achieved. The wound was closed in layered fashion with 3-0 PDS, 4-0 Monocryl, 4-0 nylon and 3-0 nylon suture. Sterile dressing with Xeroform gauze Webril and an Thomas wrap were placed. A 10 cc of 0.5% Marcaine with epinephrine was infiltrated for local anesthetic. Patient was woken from anesthesia and taken the PACU in good condition there no immediate complications from this procedure. Complications: none Post-operative Condition: stable Disposition: PACU Plan for aftercare: Weightbear as tolerated in orthopedic firm shoe. Keep dressing in place. But if soiled or drainage may clean changed to dry dressing. A keep incision dry. Sutures will stay in 2-4 weeks
== END 2020-11-23 16:40 | disposition home or self-care (01) ==
PROVIDERS: Family Provider Specialist; PCP Family Medicine; Referring Provider Orthopaedic Surgery Foot and Ankle Surgery; Visit Provider Orthopaedic Surgery Foot and Ankle Surgery
PROC: (CPT 28825; principal; 2020-11-23 13:45)
DX: L97.526 Non-pressure chronic ulcer of other part of left foot with bone involvement without evidence of necrosis (principal); D47.2 Monoclonal gammopathy; I25.10 Atherosclerotic heart disease of native coronary artery without angina pectoris; E78.5 Hyperlipidemia, unspecified; I10 Essential (primary) hypertension; G47.33 Obstructive sleep apnea (adult) (pediatric); K21.9 Gastro-esophageal reflux disease without esophagitis; I73.9 Peripheral vascular disease, unspecified; I45.10 Unspecified right bundle-branch block; I25.2 Old myocardial infarction
CPT/HCPCS: 28825; 87070; 87075; 87176; 87205; J0690; J1100; J2704

== ENCOUNTER → 2021-02-20 09:49 | Outpatient (CLI) | payer MEDICARE, OTHER, SELFPAY ==
[2021-02-20 11:26] LABS: COVID19 -Nasal RAPID Negative (Negative)
== END ==
PROVIDERS: Family Provider Specialist; PCP Family Medicine; Visit Provider Physician Assistant
DX: Z01.812 Encounter for preprocedural laboratory examination (principal); Z20.822 Contact with and (suspected) exposure to COVID-19
CPT/HCPCS: 87635; C9803

== ENCOUNTER 2021-02-22 07:25 | Day surgery (SDC) | payer MEDICARE, OTHER, SELFPAY ==
[2021-02-21 08:37] VITALS: BMI 25.7
[2021-02-22 08:20] VITALS: BP 145/90; PULSE 68; RESP 99; TEMP 36.4; O2SAT 13; BMI 25.7
[2021-02-22] MEDS: LACTATED RINGERS 1,000 ML 42 ML IV (08:31)
--- NOTE | 2021-02-22 09:35 | PM.PREOP ---
Pre-operative Note COVID-19 COVID-19 status: Negative Interval Note History & Physical reviewed/Exam performed by Physician: Yes Changes to H&P: No
--- NOTE | 2021-02-22 10:23 | SUR.OPER ---
Supine on padded OR bed, head on pillow, arms secured on padded arm boards at <90 degrees abduction, legs uncrossed, safety belt at hip, bump under left hip, tape over blanket over right lower leg. Left leg in control of the surgeon
[2021-02-22] MEDS: BUPIVACAINE 0.5% W/ EPI (PF) 30 ML VIAL INJ (10:27)
--- NOTE | 2021-02-22 10:54 | PM.OP.1 ---
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 He is also status post partial great toe amputations and 3rd toe amputations. He has been indicated for partial 2nd toe amputation to reduce the new since toe reduce the risk of recurrent ulcerations and infections. The risks and benefits of the procedure have been discussed with the patient even opportunity to ask questions. The risks of surgery include but are not limited to infection, malunion, nonunion, persistence of pain, damage to nerves and blood vessels, posttraumatic arthritis, DVT, PE, cardiopulmonary complications and . The patient expressed a thorough understanding of the risks and benefits of surgery and has elected to proceed. Consent was signed in the office. Surgeon: Carol Oreilly Click Yes if Unassisted: Yes Anesthesia Type: MAC +/- and Local Operative Notes Findings: Rigid left 2nd toe mallet toe much longer than surrounding toes. No open wounds. Status post 3rd and partial great toe amput Closure Type: primary Specimen(s): none sent Estimated Blood Loss (mL): 1 Blood products transfused: none Tourniquet time (min): 0 Procedure in detail: Patient was seen in the preoperative area the site of surgery was marked informed consent confirmed. He was brought back to the operating room the anesthesia team positioned supine operative table. All bony prominences well padded. Light sedation was provided and left 2nd toe foot were cleaned and 4 cc of local anesthetic with epinephrine were infiltrated. The the the left lower extremities prepped and draped in the standard sterile fashion a formal time-out procedure was performed confirming the patient's side and site of surgery administration of appropriate preoperative antibiotics all were in agreement. Attention turned to the left foot since the patient had a history of vascular insufficiency no tourniquet was utilized. The fishmouth incision was marked out over the 2nd toe along the base the proximal phalanx this was taken directly through the skin incised down to bone circumferentially removing the toe. The TTS saw was used to transect the proximal phalanx base. A rongeur was used to Shorten this slightly further in line with the previous 3rd toe amputation. tendons and neurovascular bundles were a shortened and allowed to retract. C-arm was brought and confirmed appropriate bony resection. The wound was irrigated and then closed in layers with a 3-0 PDS 4-0 Monocryl and 3-0 nylon suture. A sterile dressing was placed. The patient was woken from anesthesia and taken to recovery room in good condition. There no immediate complications from this procedure. Complications: none Post-operative Condition: stable Disposition: PACU Plan for aftercare: Weightbear as tolerated in orthopedic shoe. Keep dressing clean dry and intact. May change dressing if saturated to clean dry gauze. follow-up 2 Weeks.
[2021-02-22 11:04] VITALS: BP 132/82; PULSE 67; RESP 16; TEMP 36.2; O2SAT 99
== END 2021-02-22 11:25 | disposition home or self-care (01) ==
PROVIDERS: Family Provider Specialist; PCP Family Medicine; Referring Provider Orthopaedic Surgery Foot and Ankle Surgery; Visit Provider Orthopaedic Surgery Foot and Ankle Surgery
PROC: (CPT 28825; principal; 2021-02-22 09:45)
DX: M20.5X2 Other deformities of toe(s) (acquired), left foot (principal); D47.2 Monoclonal gammopathy; I99.8 Other disorder of circulatory system; I25.10 Atherosclerotic heart disease of native coronary artery without angina pectoris; Z95.1 Presence of aortocoronary bypass graft
CPT/HCPCS: 28825; J2704

== ENCOUNTER → 2021-04-10 11:08 | Outpatient (CLI) | payer MEDICARE, OTHER, SELFPAY ==
[2021-04-10 12:37] LABS: COVID19 -Nasal RAPID Negative (Negative)
== END ==
PROVIDERS: Family Provider Specialist; PCP Family Medicine; Visit Provider Physician Assistant
DX: Z01.812 Encounter for preprocedural laboratory examination (principal); Z20.822 Contact with and (suspected) exposure to COVID-19
CPT/HCPCS: 87635; C9803

== ENCOUNTER 2021-04-12 10:40 | Day surgery (SDC) | payer MEDICARE, OTHER, SELFPAY ==
[2021-04-09 09:15] VITALS: BMI 26.4
[2021-04-12] VITALS (8 sets, daily range): BP systolic 117–134; BP diastolic 74–83; PULSE 65–71; RESP 10–18; TEMP 36.3–36.8; O2SAT 95–99; BMI 26.4
--- NOTE | 2021-04-12 11:16 | PM.PREOP ---
Pre-operative Note COVID-19 COVID-19 status: Negative Interval Note History & Physical reviewed/Exam performed by Physician: Yes Changes to H&P: No
[2021-04-12] MEDS: LACTATED RINGERS 1,000 ML 42 ML IV (11:36)
[2021-04-12] MEDS: CEFAZOLIN 1 GM VIAL 2 GM IV (11:55)
--- NOTE | 2021-04-12 12:00 | P.OP_ITS ---
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 He gets a rubbing and sores developing on his 2nd toe from the overlap. He has had difficulty healing wounds in the past and has had successful management of these toe deformities and sores with partial amputations on the left side. Desires the same on this side to promote early healing and return to activities. He does not have any pain associated with the great toe deformity. Plan would be partial amputation left 2nd toe to reduce the risk of recurrence and wound healing difficulties. The risks and benefits of the procedure have been discussed with the patient even opportunity to ask questions. The risks of surgery include but are not limited to infection, malunion, nonunion, persistence of pain, damage to nerves and blood vessels, posttraumatic arthritis, DVT, PE, cardiopulmonary complications and . The patient expressed a thorough understanding of the risks and benefits of surgery and has elected to proceed. Consent was signed. Surgeon: Carol Oreilly Click Yes if Unassisted: Yes Anesthesia Type: General and Local Operative Notes Findings: Deformity right 2nd toe and hallux valgus. Skin irritation ulceration along the medial aspect of the 2nd toe where rubs on the 1st. No erythema or signs of infection. This is treated with Right 2nd toe amputation through the base of the proximal phalanx Closure Type: primary Specimen(s): none sent Estimated Blood Loss (mL): 0 Blood products transfused: none Tourniquet time (min): 0 Procedure in detail: Patient was seen in the preoperative area the site of surgery was marked informed consent confirmed. He is broughtback to the operating room by the anesthesia team. he was positioned supine on operative table. Bony prominences were well padded. Right lower extremities prepped and draped in standard sterile fashion. Formal time-out procedure was confirming the patient's side and site of surgery administration of appropriate preoperative antibiotics. All were in agreement. 5 cc of 0.25% Marcaine with epinephrine were injected for a digital block. Next a fishmouth incision was made over the proximal phalanx of the 2nd toe this was taken down to bone full- thickness circumferentially around the TPS saw was brought in for transection of the proximal phalanx through the base. Rongeur was used to round off the edges. The wound was irrigated. The C-arm was brought in to confirm appropriate resection. Once this was completed the neurovascular bundles were dissected out cut and cauterized and allowed to retract. Extensor and flexor tendons were cut and allowed to retract. There was no appearance of infection. Deep tissue was closed with a 3-0 Quill suture. Subcutaneous with 4-0 Monocryl and 3-0 nylon in the skin approximated full stop. Dressings were placed with Xeroform gauze and a Milana wrap and Thomas wrap. Drapes removed anesthesia was terminated the patient was taken to the postoperative unit in good condition. All counts were correct. There no immediate complications. Complications: none Post-operative Condition: stable Disposition: PACU Plan for aftercare: Weightbear as tolerated in postoperative shoe. May change dressing is saturated otherwise keep clean dry and intact. Sutures will remain in place 3-4 weeks
[2021-04-12] MEDS: BUPIVACAINE 0.25% W/ EPI 30 ML VIAL INJ (12:23)
--- NOTE | 2021-04-12 12:24 | SUR.OPER ---
Supine on padded OR bed, head on pillow, arms secured on padded arm boards at <90 degrees abduction, legs uncrossed, safety belt at thigh, tape over blanket over nonoperative lower leg, bump under operative side hip.
== END 2021-04-12 13:42 | disposition home or self-care (01) ==
PROVIDERS: Family Provider Specialist; PCP Family Medicine; Referring Provider Orthopaedic Surgery Foot and Ankle Surgery; Visit Provider Orthopaedic Surgery Foot and Ankle Surgery
PROC: (CPT 28825; principal; 2021-04-12 12:15)
DX: M20.41 Other hammer toe(s) (acquired), right foot (principal); M20.11 Hallux valgus (acquired), right foot; D47.2 Monoclonal gammopathy; I73.9 Peripheral vascular disease, unspecified; L89.896 Pressure-induced deep tissue damage of other site
CPT/HCPCS: 28825; J0690; J2405; J2704; J3010

== ENCOUNTER → 2021-11-13 10:57 | Outpatient (CLI) | payer MEDICARE, OTHER, SELFPAY ==
[2021-11-13 13:33] LABS: COVID19 -Nasal RAPID Negative (Negative)
== END ==
PROVIDERS: Family Provider Specialist; PCP Family Medicine; Visit Provider Family Medicine Sleep Medicine
DX: Z20.822 Contact with and (suspected) exposure to COVID-19 (principal)
CPT/HCPCS: 87635; C9803

== ENCOUNTER → 2021-11-15 10:04 | Day surgery (SDC) | payer MEDICARE, OTHER, SELFPAY ==
[2021-11-08 08:58] VITALS: BMI 26.4
[2021-11-15] VITALS (8 sets, daily range): BP systolic 112–144; BP diastolic 70–84; PULSE 66–90; RESP 12–16; TEMP 36.4–36.7; O2SAT 92–97; BMI 26.4
--- NOTE | 2021-11-15 | PATH_ITS ---
[facility] Accession Number: [id number] . 01 Material submitted: . PART A: toe - RIGHT 3RD TOE PART B: toe - RIGHT GREAT TOE . 01 Diagnosis: A. Right Third Toe, Amputation: Actively inflamed chronic ulcer of skin. Viable bone with new bone formation and reactive changes. Margins of excision viable. . B. Right Great Toe, Amputation: Acanthosis, chronic inflammation and fibrosis of skin. Viable bone with new bone fromation and reactive changes. Margins of excision viable. [facility] 11/21/2021 1355 Local . 01 Electronically signed: . Thuy Abarca MD, Pathologist NPI- [id number] . 01 Gross description: . A. Received in formalin labeled with the patient's name and additionally labeled right third toe is a toe disarticulated through the interphalangeal joint measuring 2.5 x 1.8 x 1.4 cm. The toenail is present and thickened measuring 0.9 x 0.6 x 0.5 cm. Beneath the nail is an irregular ulcerated lesion measuring 1.3 x 0.9 cm. Also present is the apparent articular surface of the proximal phalange measuring 1.0 x 0.6 x 0.6 cm. Also present is an irregular portion of variegate tissue measuring 1.2 x 0.5 x 0.3 cm. [employer] P[employer] sections are submitted following decalcification as follows: . A1 - En face soft tissue margin from main specimen. A2 - Cross section through toe. A3 - Cut phalangeal margin and additional fragment of soft tissue./ . B. Received in formalin labeled with the patient's name and additionally labeled right great toe is a distal toe measuring 3.3 x 3.1 x 2.4 cm. The nail is absent. There is a vague ulcerated area distal to the nailbed measuring 0.3 x 0.2 cm. No other masses or lesions are identified. Also, present is a disarticulated bone with a cut surface measuring 1.7 x 1.5 x 1.1 cm. [employer] Service [employer] Poultry sections are submitted following decalcification as follows: . B1 - En face soft tissues and bone margin. B2 - Cross section through toe including vague ulcerated area. B3 - Detached fragment of bone with en face cut surface margin and cross section through articular surface. ([id number]) /[facility] 11/19/2021 1744 Local . 01 Pathologist provided ICD-10: L97.501 . 01 CPT . 710841, [id number], 738730, 681824, [id number], 212328 Specimen Comment: A courtesy copy of this report has been sent to [phone] Performed at: 01 [facility] [address] [place] [address], [place], [place] [id number] MD Ferdinand Lin MD Phone: [phone]
--- NOTE | 2021-11-15 10:40 | P.OP.PRE_ITS ---
Pre-operative Note COVID-19 COVID-19 status: Negative Result date/Date tested (Pos, Neg/Pending): 11/12/21 Criteria for continued procedure: Expected advancement of disease process, Possibility delay results in more complex future surgery or treatment, Continuing or worsening of significant or severe pain, Deterioration of the patient's condition or overall health and Delay expected to result in less- positive ultimate med/surg outcome Interval Note History & Physical reviewed/Exam performed by Physician: Yes Changes to H&P: No H&P completed within 30 days and has changed as indicated here:: Patient with worsening foot ulcerations and deformity. Indicated for partial amputation right great toe and right 3rd toe
[2021-11-15] MEDS: LACTATED RINGERS 1,000 ML 42 ML IV (10:54)
[2021-11-15] MEDS: CEFAZOLIN 2 GM/20 ML SYRINGE IV (11:11)
--- NOTE | 2021-11-15 11:28 | SUR.OPER ---
Supine on padded OR bed, head on pillow, arms secured on padded arm boards at <90 degrees abduction, legs uncrossed, safety belt at thigh, tape over blanket over lower left leg. Gel hip bump under right hip, right leg propped with blankets and draped free.
[2021-11-15] MEDS: BUPIVACAINE 0.25% (PF) 30 ML, EPINEPHrine 0.15 MG INJ (11:36)
--- NOTE | 2021-11-15 12:09 | PM.OP.1 ---
Operative Date/Time/Diagnoses Date of procedure: 11/15/21 Time of procedure: 12:09 Pre-op diagnosis: Deformity toe right foot M20.1 Gammopathy D47.2 Vascular insufficiency I99.8 Ulcer toes right foot Post-op diagnosis: same Procedure & Clinicians Procedure: 1. Partial amputation right great toe CPT code 74381-N8 2. Partial amputation right 3rd toe CPT code 69610-A5-41 Same procedure as scheduled: Yes Indications: Patient is an 81-year-old male with a complex medical history including gammopathy and history of multiple amputations for vascular insufficiency and nonhealing in bearing ulcerations an arterial disease. He has been indicated for partial amputation of the right great toe through the proximal phalanx and 3rd toe through the proximal phalanx due to deformity chronic nonhealing in billing ulcerations arterial disease and risk for progression and infection. The patient has maximized vascular intervention and is indicated for amputation to address the chronic ulcerations and to reduce the risk of persistent wound infection. Surgeries indicated to allow amputation more distal level and a controlled setting to reduce the risk of persistent worsening ulceration and infection requiring more extensive procedure. The risks benefits and alternatives to surgery explained to patient in detail and included but were not limited to infection, nonunion, malunion, need for additional amputation, persistent pain, healing problems, DVT, pulmonary embolism, stroke paralysis and symptomatic hardware. Patient has elected to proceed with surgery. Signed in the office Surgeon: Carol Oreilly Click Yes if Unassisted: Yes Anesthesia Type: General and Local Operative Notes Findings: end ulceration right 3rd toe full-thickness. Third toe was amputated through the proximal phalanx. Right great toe was severe hallux valgus deformity callus an area of recurrent ulceration lateral aspect of distal phalanx. No obvious infection drainage. Severe deformity impinging on the adjacent digits Closure Type: primary Estimated Blood Loss (mL): 5 Blood products transfused: none Tourniquet time (min): 0 Procedure in detail: Patient was seen in the preoperative area the site of surgery marked informed consent confirmed. He was brought back to the operating room by the anesthesia team positioned supine on operative table. The right lower extremities prepped and draped in the standard sterile fashion. A formal time-out procedure was performed confirming the patient's side and site of surgery administration of appropriate preoperative antibiotics. All were in agreement. Right lower extremity as expected. There was a severe hallux valgus deformity as well as thin skin consistent with patient's underlying arterial disease there is impairing ulceration on the 3rd toe. There have been previous 2nd toe amputation. No tourniquet was used. Standard approach with fishmouth incision over the 3rd toe proximal phalanx taken down full-thickness to the skin subcutaneous tissues and tendon. TTS saw was used then to transect the 3rd toe at the proximal phalanx. The toe was removed. Neurovascular bundles were isolated and resected. Ends of the bone were rounded off. The wound was irrigated and closed in a layered fashion with 3-0 PDS 4-0 Monocryl and 3-0 nylon. Attention was then turned to the great toe. There is a severe hallux valgus deformity. We did release the discussed with the patient that due to his multiple medical comorbidities and risk for wound healing problems he is not a candidate for deformity correction and internal implants. Decision was made for partial amputation. Fishmouth incision was drawn out over the proximal phalanx of the great toe this was taken down through skin subcutaneous tissue just proximal to the IP joint again the TTS saw was used to remove condyles of the proximal phalanx the rest of the toe was removed. The flaps were shaped and dog-ears removed. The wound was irrigated thoroughly. Neurovascular bundles were explored and cut. The soft tissues were reapproximated in a layered fashion with 3-0 PDS 4-0 Monocryl and 3-0 nylon. The wounds and incisions were cleansed. Sterile dressing was placed with Xeroform gauze and Webril. 10 cc of local anesthetic was used for postoperative pain control. Sterile dressing was placed. The patient was woken from anesthesia and taken to recovery room in good condition. There no immediate complications from this procedure. All counts were correct Complications: none Post-operative Condition: stable Disposition: PACU Plan for aftercare: Flatfoot weight-bearing in the postoperative healing shoe. Keep dressings clean dry and intact. Sutures remain in place approximately 4 weeks. Follow-up in 2 weeks for wound check.
--- NOTE | 2021-11-15 13:01 | SUR.PHASEI ---
Addendum entered by Rosenda Hudson R.N. 11/15/21 13:25: ammendum: patient has no feeling below from ankle area downward-normal as preop. minimal toe motion. no distal pt felt=history of poor circulation in legs. Original Note: 11/15/21 Dr Webb notified of sluggish refill and dusky cold toes rt foot. Rewrapped acewrap,warm blanket to foot. Came back in 15 mins and satisfied with refill/color. ice pack held due to circulation .
== END | disposition home or self-care (01) ==
PROVIDERS: Family Provider Specialist; PCP Family Medicine; Referring Provider Orthopaedic Surgery Foot and Ankle Surgery; Visit Provider Orthopaedic Surgery Foot and Ankle Surgery
PROC: (CPT 28825; principal; 2021-11-15 11:15)
DX: L97.511 Non-pressure chronic ulcer of other part of right foot limited to breakdown of skin (principal); M20.5X1 Other deformities of toe(s) (acquired), right foot; D47.2 Monoclonal gammopathy; I73.9 Peripheral vascular disease, unspecified; E78.5 Hyperlipidemia, unspecified; I10 Essential (primary) hypertension; I25.10 Atherosclerotic heart disease of native coronary artery without angina pectoris; E03.9 Hypothyroidism, unspecified
CPT/HCPCS: 28825 ×2; J0171; J0690; J2704; J3010

== ENCOUNTER → 2021-12-07 15:07 | Outpatient (CLI) | payer MEDICARE, OTHER, SELFPAY | PROVIDERS: Family Provider Specialist; PCP Family Medicine; Referring Provider Specialist; Visit Provider Specialist | DX: R68.89 Other general symptoms and signs (principal) ==

== ENCOUNTER → 2021-12-22 12:57 | Outpatient (CLI) | payer MEDICARE, OTHER, SELFPAY ==
--- NOTE | 2021-12-22 | DI.MRI.S_ITS ---
PROCEDURE: MR HEAD/BRAIN WO CON INDICATIONS: DEMENTIA TECHNIQUE: Non-contrast axial T1 spin echo, axial T2 fast spin echo, sagittal and axial FLAIR, coronal T2 fast spin echo, axial gradient echo, axial diffusion and ADC through the brain. COMPARISON: None. FINDINGS: Image quality: Excellent. CSF spaces: Ventricles appear symmetric in size and shape. Basal cisterns are patent. Small 2.2 centimeter, parafalcine, posterior right frontal convexity arachnoid cyst. Brain: No intracranial bleeds or mass effects. There is moderate cerebral volume loss for age. There are mild periventricular and deep white matter chronic small vessel ischemic changes. Brainstem appears normal. Diffusion-weighted images show no acute ischemic insults. No chronic ischemic insults. Normal intravascular flow voids are present. Skull and face: Calvarial bone marrow is normal in signal. Orbits are normal. Sinuses: Sinuses and mastoids are clear. IMPRESSION: 1. No acute intracranial disease process. 2. No areas of acute or chronic infarction. 3. No abnormal intracranial mass or mass effect. 4. Moderate, diffuse cerebral volume loss. 5. Mild periventricular and subcortical white matter chronic microvascular ischemic change. Dictated by: Maribel Argueta MD, PhD on 12/23/2021 at 11:28 Approved by: Maribel Argueta MD, PhD on 12/23/2021 at 11:31
== END ==
PROVIDERS: Family Provider Specialist; PCP Family Medicine; Referring Provider Specialist; Visit Provider Specialist
DX: F01.50 Vascular dementia, unspecified severity, without behavioral disturbance, psychotic disturbance, mood disturbance, and anxiety (principal); F03.90 Unspecified dementia, unspecified severity, without behavioral disturbance, psychotic disturbance, mood disturbance, and anxiety
CPT/HCPCS: 70551

== ENCOUNTER → 2022-09-04 13:04 | Outpatient (CLI) | payer MEDICARE, OTHER, SELFPAY ==
[2022-09-04 14:13] LABS: BUN Creatinine Ratio 17.4 (6-22); Blood Urea Nitrogen 15 mg/dL (9-20); Calcium 9.3 mg/dL (8.4-10.2); Carbon Dioxide 20 mmol/L (22-32); Chloride 106 mmol/L (98-107); Estimated Glomerular Filt Rate > 60 mL/min (>60); Glucose 76 mg/dL (80-110); HEMOLYSIS < 15 (0-50); Potassium 3.7 mmol/L (3.4-5.1); Sodium 139 mmol/L (137-145)
== END ==
PROVIDERS: Family Provider Specialist; Referring Provider Urology; Visit Provider Urology
DX: N42.9 Disorder of prostate, unspecified (principal); N39.41 Urge incontinence; R31.21 Asymptomatic microscopic hematuria
CPT/HCPCS: 36415; 51798; 80048; 81002; 84153; 99214

== ENCOUNTER → 2022-09-15 13:01 | Outpatient (CLI) | payer MEDICARE, OTHER, SELFPAY ==
--- NOTE | 2022-09-15 13:04 | DI.CT.S_ITS ---
PROCEDURE: CT ABDOMEN PELVIS WO/W CON INDICATIONS: Asymptomatic microscopic hematuria, urinary urgency TECHNIQUE: Optional 5 mm thick noncontrast images acquired from the diaphragm to the symphysis pubis. After the administration of intravenous contrast, 5 mm thick images acquired from the diaphragm to the symphysis pubis after a 10-minute delay. 2 mm thick coronal and sagittal reformats were then performed of the kidneys and ureters. For radiation dose reduction, the following was used: automated exposure control, adjustment of mA and/or kV according to patient size. COMPARISON: None. FINDINGS: Image quality: Excellent. Lung bases: There is a calcified left lower lobe granuloma. Lung bases are otherwise clear. Heart size is normal. There is a large hiatal hernia. Urinary system: Both kidneys are normal in size, without hydronephrosis or nephrolithiasis on pre-contrast images. No perinephric fat stranding. There is normal bilateral renal enhancement. Renal calyces appear normal in morphology when filled with contrast. Opacified portions of both ureters demonstrate normal caliber. Bladder is partially fluid-filled and moderately thick-walled. No calcified bladder stones. Other solid organs: Liver is normal in size and enhancement. Gallbladder is unremarkable . Biliary system is non dilated. Pancreas enhances normally. Spleen is normal in size and enhancement. 2 small splenules are present adjacent to the lower pole of the spleen. No adrenal nodules. Peritoneum and bowel: Bowel loops demonstrate normal wall thickness and caliber. No free fluid or air. Nodes and vessels: No retroperitoneal or mesenteric adenopathy by size criteria. There is a 4.0 cm in diameter fusiform aneurysm of the infrarenal abdominal aorta. Abdominal wall: No ventral hernias. Pelvis: No pathologic free pelvic fluid. No inguinal hernias or adenopathy. Bones: No suspicious bony lesions. No vertebral body compression fractures. IMPRESSION: 1. No hydronephrosis, nephrolithiasis, hydroureter, or ureterolithiasis. No suspicious urothelial lesions or abnormal renal enhancement. 2. Mild circumferential thickening of the bladder wall which may be associated with cystitis. No bladder stones or bladder lesions appreciated. 3. Fusiform abdominal aortic aneurysm. Annual sonographic surveillance recommended. Dictated by: Kandi Alatorre M.D. on 09/15/2022 at 15:30 Approved by: Kandi Alatorre M.D. on 09/15/2022 at 15:40
== END ==
PROVIDERS: Family Provider Specialist; Referring Provider Urology; Visit Provider Urology
DX: I71.40 Abdominal aortic aneurysm, without rupture, unspecified (principal); R31.21 Asymptomatic microscopic hematuria; N42.9 Disorder of prostate, unspecified
CPT/HCPCS: 36415; 74178; 84153; Q9967

== ENCOUNTER → 2022-09-15 14:08 | Outpatient (CLI) | payer MEDICARE, OTHER, SELFPAY ==
[2022-09-16 03:34] LABS: Prostate Specific Antigen 6.71 ng/mL (0.10-4.00)
== END ==
PROVIDERS: Family Provider Specialist; Referring Provider Urology; Visit Provider Urology
DX: N42.9 Disorder of prostate, unspecified (principal)
CPT/HCPCS: 36415; 84153

== ENCOUNTER → 2022-10-02 11:46 | Outpatient (CLI) | payer MEDICARE, OTHER, SELFPAY ==
--- NOTE | 2022-10-02 11:49 | DI.MRI.S_ITS ---
PROCEDURE: MR PELIS WO/W CON INDICATIONS: ELEVATED PSA ABNORMAL PROSTATE EXAM TECHNIQUE: Coronal HASTE, axial T1 FSE with fat saturation, 3-plane nonbreath-hold T2 FSE. After the administration of contrast, dynamic axial, delayed axial and coronal VIBE or 2-D FLASH with fat saturation through the pelvis. Optional diffusion weighted imaging and ADC may be performed. COMPARISON: [facility], CT, CT ABDOMEN PELVIS WO/W CON, 09/15/2022, 13:17. FINDINGS: Image quality: Diffusion weighted and dynamic contrast enhanced images are diagnostic. Prostate: 3.5 x 4.3 x 2.9 cm. Estimated volume is 23 cc. PI-RADS 5 lesion involving the entirety of the right peripheral zone, extending into the transitional zone, and angle of the seminal vesicles. There is also some involvement of the left posterior peripheral zone. There is extracapsular extension. Small BPH nodules are also present. Genitourinary system: Bladder is not well evaluated on this study. It is under distended with mild wall thickening, which may be related to chronic obstruction. Possible TURP defect. Bowel and peritoneum: No bowel obstruction. No pathologic ascites. Prominent rectal gas causing artifact on diffusion-weighted images, although it is still diagnostic. 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 Series 22, image 81 on the left measures 9 mm in short axis. Aortoiliac aneurysmal dilation better evaluated on prior CT. Soft tissues: Unremarkable Bones: No suspicious enhancing osseous lesion. IMPRESSION: Prostate adenocarcinoma involving the entirety of the right peripheral zone, also involving the transitional zone, the posterior region of the left gland, with extracapsular extension and invasion into the angle of the seminal vesicle particularly on the right. PI-RADS 5. Borderline enlarged pelvic lymph nodes are suspicious in this clinical context, which could be confirmed with PSMA PET if available. Other findings as above. Dictated by: Hussein Evans M.D. on 10/02/2022 at 14:25 Approved by: Hussein Evans M.D. on 10/02/2022 at 14:34
[2022-10-04 12:27] LABS: PSA Free % 24.3 % (.)
== END ==
PROVIDERS: Family Provider Specialist; Referring Provider Urology; Visit Provider Urology
DX: C61 Malignant neoplasm of prostate (principal); R97.20 Elevated prostate specific antigen [PSA]
CPT/HCPCS: 36415; 72197; 84153; 84154

== ENCOUNTER → 2022-11-17 11:54 | Outpatient (CLI) | payer MEDICARE, OTHER, SELFPAY ==
[2022-11-17 13:30] LABS: BUN Creatinine Ratio 15.1 (6-22); Blood Urea Nitrogen 16 mg/dL (9-20); Calcium 8.7 mg/dL (8.4-10.2); Carbon Dioxide 22 mmol/L (22-32); Chloride 103 mmol/L (98-107); Estimated Glomerular Filt Rate > 60 mL/min (>60); Glucose 89 mg/dL (80-110); HEMOLYSIS < 15 (0-50); Potassium 3.6 mmol/L (3.4-5.1); Sodium 138 mmol/L (137-145)
== END ==
PROVIDERS: Family Provider Specialist; PCP Family Medicine; Referring Provider Urology; Visit Provider Urology
DX: C61 Malignant neoplasm of prostate (principal)
CPT/HCPCS: 36415; 80048

== ENCOUNTER → 2022-11-17 12:20 | Outpatient (CLI) | payer MEDICARE, OTHER, SELFPAY ==
--- NOTE | 2022-11-17 12:22 | DI.CT.S_ITS ---
PROCEDURE: CT CHEST ABD PEL W CON INDICATIONS: New diagnosis high-grade prostate cancer TECHNIQUE: After the administration of oral and intravenous contrast, axial sections acquired from the supraclavicular neck to the pubic symphysis. Coronal and sagittal reformats were performed. For radiation dose reduction, the following was used: automated exposure control, adjustment of mA and/or kV according to patient size. COMPARISON: [facility], MR, MR PELVIS WO/W CON, 10/02/2022, 12:26. [facility], CT, CT ABDOMEN PELVIS WO/W CON, 09/15/2022, 13:17. FINDINGS: Image quality: Adequate CHEST: Lower Neck: No enlarged lymph nodes. Axillae: No enlarged lymph nodes. Chest Wall: Prior median sternotomy. Lungs and Airways: Mild emphysema. Scattered areas of ground-glass opacity and patchy micronodularity, likely infectious/inflammatory. A calcified granuloma is present in the left lower lobe. 5 millimeter part solid nodule anterior left lower lobe (3/187) solid component measures approximately 1-2 millimeters. Pleura: No pneumothorax or pleural effusions. Heart: No pericardial effusion. Multivessel coronary artery calcifications and/or stents. Thoracic Vessels: The aorta and pulmonary arteries demonstrate normal size. Mediastinum and Karla: No enlarged lymph nodes. Esophagus: No wall thickening. ABDOMEN: Liver: Small nonspecific hypodensity segment 2/4 (2/52) with internal density similar to water density, could represent a cyst or hemangioma. Gallbladder: Absent Biliary ducts: Unremarkable. Pancreas: Unremarkable. Spleen: Unremarkable. Adrenal Glands: Unremarkable. Kidneys and Ureters: Unremarkable. Stomach and Bowel: Large paraesophageal hernia present with rotation of the stomach, approximately 3/4th of the stomach intrathoracic. No evidence of mechanical small bowel obstruction. Peritoneum: No abnormal intraperitoneal fluid. No free air. Abdominal Nodes: No retroperitoneal or mesenteric adenopathy by size criteria. Vessels: Abdominal aortic aneurysm and right iliac aneurysm not substantially changed since prior CT. PELVIS: Pelvic Organs: Known prostate cancer better imaged on prior prostate MRI. Bladder: Unremarkable. Pelvic Nodes: No significant changed in previously indexed suspicious pelvic lymph nodes, 8 millimeter right internal iliac lymph node (2/112) and 9 millimeter left internal iliac lymph node (2/111). Bones: Multilevel degenerative change of the visualized spine. IMPRESSION: 1. No significant change in previously indexed suspicious pelvic lymph nodes. 2. A 5 millimeter part solid nodule is present in the left lower lobe, nonspecific. Appearance/morphology is not highly suspicious for metastatic prostate carcinoma however metastatic disease cannot be fully excluded. Lung neoplasm or infectious/inflammatory residua are also possible. Attention on future follow-up exams for the patient's known prostate cancer is recommended, otherwise could consider follow-up chest CT in 12 months or other interval at clinical discretion. 3. Large paraesophageal hernia redemonstrated. 4. Scattered patchy areas of ground-glass opacity micro nodularity in both lungs, likely infectious/inflammatory. Dictated by: Josue Fonseca M.D. on 11/18/2022 at 10:42 Approved by: Josue Fonseca M.D. on 11/18/2022 at 11:15
== END ==
PROVIDERS: Family Provider Specialist; PCP Family Medicine; Referring Provider Urology; Visit Provider Urology
DX: C61 Malignant neoplasm of prostate (principal); R91.1 Solitary pulmonary nodule; K44.9 Diaphragmatic hernia without obstruction or gangrene
CPT/HCPCS: 36415; 71260; 74177; 80048; Q9967

== ENCOUNTER → 2022-11-26 08:13 | Outpatient (CLI) | payer MEDICARE, OTHER, SELFPAY ==
--- NOTE | 2022-11-26 08:14 | DI.NM.S_ITS ---
PROCEDURE: NM BONE SCAN WHOLE BODY RADIOPHARMACEUTICAL: 21.5 mCi Tc-99m MDP IV. INDICATIONS: New diagnosis high-grade prostate cancer TECHNIQUE: Delayed whole-body scintigrams were obtained approximately 3-4 hours after intravenous injection of radiotracer. Anterior and posterior views were acquired from vertex to feet. Additional left and right oblique views of the pelvis were obtained. COMPARISON: [facility], CT, CT CHEST ABD PEL W CON, 11/17/2022, 13:51. FINDINGS: There is increased activity at the left sternoclavicular junction, correlating with prominent degenerative joint disease seen on the comparison CT. Mild diffuse increased uptake in sternum is likely secondary to sternotomy. No lesions are identified in skull, clavicles, scapulae, ribs, bony pelvis, and visualized shafts of the long bones. There are foci of increased uptake in cervical, thoracic and lumbar spine most likely secondary to degenerative disc and facet disease; early metastasis to spine could be obscured by degenerative changes. There are foci of increased periarticular activity involving, compatible with degenerative/arthritic changes. IMPRESSION: 1. No definitive scintigraphic findings to suggest osseous metastatic disease. 2. Increased activity in the left sternoclavicular junction, most likely secondary to degenerative joint disease. Please correlate with tumor marker. Recommend attention to the area on follow-up imaging. Dictated by: Brenda López M.D. on 11/26/2022 at 16:25 Approved by: Brenda López M.D. on 11/26/2022 at 16:31
== END ==
PROVIDERS: Family Provider Specialist; PCP Family Medicine; Referring Provider Urology; Visit Provider Urology
DX: C61 Malignant neoplasm of prostate (principal)
CPT/HCPCS: 78306; A9503

== ENCOUNTER → 2022-12-30 15:56 | Outpatient (CLI) | payer MEDICARE, OTHER, SELFPAY ==
[2022-12-30 17:14] LABS: Prostate Specific Antigen 0.645 ng/mL (0.10-4.00)
== END ==
PROVIDERS: Family Provider Specialist; PCP Family Medicine; Referring Provider Urology; Visit Provider Urology
DX: C61 Malignant neoplasm of prostate (principal)
CPT/HCPCS: 36415; 84153

== ENCOUNTER → 2023-02-19 15:08 | Outpatient (CLI) | payer MEDICARE, OTHER, SELFPAY ==
[2023-02-19 16:36] LABS: Prostate Specific Antigen 0.295 ng/mL (0.10-4.00)
== END ==
PROVIDERS: Family Provider Specialist; PCP Family Medicine; Referring Provider Urology; Visit Provider Urology
DX: R97.20 Elevated prostate specific antigen [PSA] (principal)
CPT/HCPCS: 36415; 84153

== ENCOUNTER → 2023-05-22 13:44 | Outpatient (CLI) | payer MEDICARE, OTHER, SELFPAY ==
[2023-05-22 15:52] LABS: Prostate Specific Antigen 0.305 ng/mL (0.10-4.00)
== END ==
PROVIDERS: Family Provider Specialist; PCP Family Medicine; Referring Provider Urology; Visit Provider Urology
DX: C61 Malignant neoplasm of prostate (principal)
CPT/HCPCS: 36415; 84153

== ENCOUNTER 2025-01-29 16:03 | Emergency (ER) | payer MEDICARE, OTHER, SELFPAY ==
[2025-01-29] VITALS (19 sets, daily range): BP systolic 129–179; BP diastolic 65–90; PULSE 61–75; RESP 6–26; TEMP 36.6; O2SAT 91–98; BMI 27.3
--- NOTE | 2025-01-29 16:08 | EKG_ITS ---
[address] [address] Test Date: 2025-01-29 Pat Name: Vin Avila Department: Room: Gender: Male Assistant Director Of Financial Aid: DESTINY : 1940 Requested By: Order Number: [id number] Reading MD: Rai Smith Measurements Intervals Ona Rate: 71 P: 37 CT: 220 QRS: -14 QRSD: 136 T: 27 QT: 456 QTc: 495 Interpretive Statements Sinus rhythm with 1st degree AV block Right bundle branch block Electronically Signed On 02-01-2025 17:38:02 PDT by Rai Smith
--- NOTE | 2025-01-29 16:11 | DI.RAD.S_ITS ---
PROCEDURE: XR CHEST 1V INDICATIONS: chest pain TECHNIQUE: One view of the chest was acquired. COMPARISON: [facility], , CHEST 2 VIEW, 09/10/2016, 14:39. FINDINGS: Surgical changes and devices: Midline sternal wires. Mediastinal vascular clips. Atherosclerotic vascular calcification noted in the aortic arch. Hiatal hernia Lungs and pleura: Lungs are clear. No pleural effusions or pneumothorax. Mediastinum: Mediastinal contours appear normal. Heart size is normal. Bones and chest wall: No suspicious bony lesions. Overlying soft tissues appear unremarkable. IMPRESSION: No acute cardiopulmonary abnormality is seen. Large hiatal hernia Approved by: Carlos Enrique Landers M.D. on 01/29/2025 at 15:41
[2025-01-29 16:26] LABS: Add Manual Diff / Slide Review NO; Basophils Absolute Auto 0 /uL (0-100); Basophils Percent Auto 0.6 % (0-2); Eosinophils Absolute Auto 200 /uL (0-450); Eosinophils Percent Auto 3.6 % (2-4); Hematocrit 40.4 % (41-53); Hemoglobin 13.9 g/dL (13.5-17.5); Lymphocytes Absolute Auto 1000 /uL (1100-4500); Mean Corpuscular HGB Conc 34.3 % (30-36); Mean Corpuscular Hemoglobin 33.1 PG (26-34); Mean Corpuscular Volume 96.4 fL (80-100); Monocytes Absolute Auto 800 /uL (0-900); Monocytes Percent Auto 13.2 % (3-14); Neutrophils Absolute Auto 4000 /uL (1500-7000); Neutrophils Percent Auto 65.6 % (50-75); Platelet Count 155 X10^3/uL (150-400); Red Blood Cell Count 4.19 X10^6/uL (4.5-5.9); Red Cell Distribution Width 14.1 % (11.6-14.8); White Blood Cell Count 6.1 X10^3/uL (4.5-11.0)
[2025-01-29 16:30] LABS: INR 1.1 (0.9-1.3); Prothrombin Time 12.2 SECONDS (9.4-12.5)
[2025-01-29 16:33] LABS: PTT Partial Thromboplastin Tim 36 SECONDS (25.1-36.5)
[2025-01-29 16:50] LABS: Alanine Aminotransferase 28 IU/L (<50); Albumin 4.2 g/dL (3.5-5.0); Albumin Globulin Ratio 1.6 (1.0-2.8); Alkaline Phosphatase 94 U/L (38-126); Aspartate Aminotransferase 29 IU/L (17-59); BUN Creatinine Ratio 16.1 (6-22); Bilirubin Total 0.5 mg/dL (0.2-1.3); Blood Urea Nitrogen 14 mg/dL (9-20); Carbon Dioxide 27 mmol/L (22-32); Chloride 101 mmol/L (98-107); Creatine Kinase 59 U/L (55-170); Estimated Glomerular Filt Rate > 60 mL/min (>60); Globulin 2.6 g/dL (1.7-4.1); Glucose 112 mg/dL (70-99); HEMOLYSIS < 15 (0-50); Lipase 52 U/L (23-300); Magnesium 1.7 mg/dL (1.6-2.3); Sodium 136 mmol/L (137-145); Total Protein 6.8 g/dL (6.3-8.2)
[2025-01-29 17:02] LABS: NT-proBNP (BNP-Adult 18+) 327 pg/mL (<450); Troponin I < 0.012 ng/mL (0.01-0.034)
--- NOTE | 2025-01-29 18:23 | ED.CHESTPAIN ---
HPI - Chest Pain General Chief Complaint: Chest Pain Stated Complaint: Chest Pain Time Seen by Provider: 01/29/25 18:19 Source: patient and EMS Mode of arrival: EMS Limitations: no limitations History of Present Illness HPI narrative: 84-year-old male with known history of coronary artery disease status post multiple stenting procedures [place] in [place], leading to last coronary interventions 2013 [facility] 4 vessel CABG, believes his last chemical stress test was 3 years ago, most recently followed by local seal mixing operator Dr. Lucas, no recent visits. This morning he had right lateral chest discomfort similar to his previous coronary events, some associated diaphoresis, took his own old supply of sublingual nitroglycerin x2 tablets which did not help the symptoms, EMS called, was given chewable aspirin EN route, was given nitroglycerin x2 EN route, with significant movement of symptoms on arrival. Has chronic cough unchanged. No fevers or chills. No new activities, no injury or trauma. Related Data Home Medications Medication Instructions Recorded Confirmed aspirin 81 mg tablet,delayed 81 mg PO DAILY 11/02/18 01/29/25 release atorvastatin 40 mg tablet 40 mg PO QPM 11/02/18 01/29/25 citalopram 40 mg tablet 20 mg PO DAILY 11/02/18 01/29/25 flunisolide 25 mcg (0.025 %) nasal 1 spray intranasal BID 11/02/18 01/29/25 spray levothyroxine 25 mcg tablet 25 mcg PO DAILY 11/02/18 01/29/25 nitroglycerin 0.4 mg sublingual 0.4 mg sublingual Q5-15M PRN Chest 11/02/18 01/29/25 tablet Pain potassium chloride 10 mEq 10 meq PO DAILY 11/02/18 01/29/25 tablet,extended release primidone 50 mg tablet 50 mg PO BID 11/02/18 01/29/25 folic acid 0.8 mg capsule 0.8 mg PO DAILY 11/19/20 01/29/25 bupropion HCl 100 mg tablet 100 mg PO BID 01/03/25 01/29/25 tamsulosin 0.4 mg capsule 0.4 mg PO DAILY 01/03/25 01/29/25 acetaminophen 500 mg capsule 500 mg PO Q6HR PRN Pain (Scale 01/29/25 01/29/25 Score 1-3) amitriptyline 10 mg tablet 20 mg PO BEDTIME 01/29/25 01/29/25 cholecalciferol (vitamin D3) 25 25 mcg PO DAILY 01/29/25 01/29/25 mcg (1,000 unit) capsule (Vitamin D3) docusate sodium 100 mg capsule 100 mg PO DAILY 01/29/25 01/29/25 furosemide 40 mg tablet 40 mg PO DAILY 01/29/25 01/29/25 primidone 50 mg tablet 100 mg PO BEDTIME 01/29/25 01/29/25 topiramate 25 mg tablet 75 mg PO BID 01/29/25 01/29/25 Previous Rx's Medication Instructions Recorded clotrimazole-betamethasone 1 1 applic topical BID #15 grams 11/09/23 %-0.05 % topical cream vibegron 75 mg tablet (Gemtesa) 75 mg PO DAILY #30 tabs 01/25/24 Allergies Allergy/AdvReac Type Severity Reaction Status Date / Time amoxicillin [From Augmentin] Allergy Severe Nausea Verified 01/29/25 16:11 clavulanic acid Allergy Severe Nausea Verified 01/29/25 16:11 [From Augmentin] codeine Allergy Severe makes Verified 01/29/25 16:11 heart race Patient History Medical History Osteopenia Hx of radiation therapy Overactive bladder History of hematuria Encounter for monitoring androgen deprivation therapy Candidal balanitis Prostate cancer Incontinence Abnormal prostate by palpation Asymptomatic microscopic hematuria History of myocardial infarction Osteomyelitis Arterial insufficiency Amputated toe of left foot (11/23/20) Urinary urgency Sprain of ligaments of cervical spine Pressure ulcer, ankle Periodic limb movement disorder Neurogenic bladder Hiatal hernia Hematuria Fatigue Familial tremor Decubital ulcer Chronic diarrhea Cellulitis Ataxia Anxiety and depression Adenomatous colon polyp Hypotension Cognitive impairment PVD (peripheral vascular disease) Gammopathy Neuropathic ulcer of ankle Arterial leg ulcer Skin ulcer of right heel, limited to breakdown of skin Skin ulcer of toe of left foot with necrosis of bone Heart attack Hyperlipidemia Hypertension Thyroid disease Chronic ulcer of great toe of left foot CHRIS on CPAP RBBB (right bundle branch block) Neuropathic ulcer CAD (coronary artery disease) GERD (gastroesophageal reflux disease) Rhinitis Anxiety Peripheral neuropathy Pleural effusion Depression Ataxic gait Anemia Hallux valgus Familial tremor Monoclonal gammopathy Vertigo PAD (peripheral artery disease) Non-pressure ulcer of left lower extremity Surgical History Hx of repair of rotator cuff Hx of toe surgery (04/12/21) History of angioplasty History of surgery (02/22/21) History of back surgery Hx of shoulder surgery Hx of cholecystectomy 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 HEAD: Atraumatic. Normocephalic. EYES: Pupils equal round and reactive. Extraocular motions intact. No scleral icterus. No injection or drainage. ENT: Nose without bleeding, purulent drainage. Throat without erythema, tonsillar hypertrophy or exudate. Airway patent. NECK: Trachea midline. Non tender CARDIOVASCULAR: Regular rate and rhythm without murmurs, gallops, or rubs. Well-healed anterior chest sernal scar. RESPIRATORY: Clear to auscultation. Breath sounds equal bilaterally. No wheezes, rales, or rhonchi. GASTROINTESTINAL: Abdomen soft, non-tender, nondistended. EXTREMITIES: No edema or joint tenderness. BACK: Nontender without deformity or crepitance. No flank tenderness. NEURO: AOx3. Motor functions grossly nonfocal SKIN: No rash or erythema of visible areas Initial Vital Signs Initial Vital Signs: Vital Signs Temperature 97.8 F 01/29/25 16:04 Pulse Rate 71 01/29/25 16:04 Respiratory Rate 12 01/29/25 16:04 Blood Pressure 131/72 01/29/25 16:04 Pulse Oximetry 97 01/29/25 16:04 Oxygen Delivery Method Room Air 01/29/25 16:04 Course Orders Ordered: Discontinued Medications Amlodipine Besylate (Amlodipine 5 Mg Tablet) 2.5 mg PO NOW ONE Stop: 01/29/25 21:13 Last Admin: 01/29/25 21:28 Dose: 2.5 mg Documented By: MR Atorvastatin Calcium (Atorvastatin 20 Mg Tablet) 40 mg PO NOW ONE Stop: 01/29/25 21:13 Last Admin: 01/29/25 21:29 Dose: 40 mg Documented By: MR Heparin Sodium (Porcine) (Heparin 5,000 Unit/Ml Vial) 5,500 unit 60 unit/kg (5500 unit) IV NOW ONE Stop: 01/29/25 20:17 Last Admin: 01/29/25 20:43 Dose: 5,500 unit Documented By: MR Heparin Sodium/Dextrose (Heparin Drip) 25,000 unit in 500 mls @ 22.56 mls/hr IV CONT MACARENA; Protocol Last Titration: 01/30/25 03:36 Dose: 0 units/kg/hr, 0 mls/hr Documented By: Co-signed By: BALDEMAR Admin: 01/29/25 20:46 Dose: 12 units/kg/hr, 22.56 mls/hr Documented By: MR Co-signed By: Lactated Ringer's (Lactated Ringers) 1,000 mls @ 1,000 mls/hr IV BOLUS ONE Stop: 01/30/25 03:41 Last Admin: 01/30/25 03:00 Dose: 1,000 mls/hr Documented By: MR Morphine Sulfate (Morphine 4 Mg/Ml Inj) 4 mg IV NOW ONE Stop: 01/29/25 20:07 Last Admin: 01/29/25 20:11 Dose: 4 mg Documented By: Nitroglycerin (Nitroglycerin 0.4 Mg Sl Tab) 0.4 mg SL [id number] PRN PRN Reason: Chest Pain Nitroglycerin (Nitroglycerin Oint 1 Inch/Gm Oint...G.) 1 inch TOP NOW ONE Stop: 01/29/25 18:41 Last Admin: 01/29/25 18:56 Dose: 1 inch Documented By: [place] Ondansetron HCl (Ondansetron 4 Mg/2 Ml Inj) 4 mg IV NOW ONE Stop: 01/29/25 20:07 Last Admin: 01/29/25 20:12 Dose: 4 mg Documented By: MR Vital Signs Vital signs: Vital Signs - 8 hr 01/29/25 16:04 01/29/25 16:08 01/29/25 16:08 Temperature 97.8 F Pulse Rate 71 71 Respiratory Rate 12 11 L Blood Pressure 131/72 131/72 Pulse Oximetry 97 97 Oxygen Delivery Method Room Air 01/29/25 16:30 01/29/25 16:30 01/29/25 17:00 Temperature Pulse Rate 65 Respiratory Rate 12 Blood Pressure 129/70 134/66 Pulse Oximetry 95 Oxygen Delivery Method 01/29/25 17:00 01/29/25 17:30 01/29/25 17:30 Temperature Pulse Rate 64 61 Respiratory Rate 20 14 Blood Pressure 132/65 Pulse Oximetry 96 95 Oxygen Delivery Method 01/29/25 18:00 01/29/25 18:00 01/29/25 18:30 Temperature Pulse Rate 64 68 Respiratory Rate 13 21 Blood Pressure 144/73 H Pulse Oximetry 96 98 Oxygen Delivery Method 01/29/25 18:30 01/29/25 18:56 01/29/25 19:00 Temperature Pulse Rate 65 65 Respiratory Rate 20 Blood Pressure 147/72 H 140/65 Pulse Oximetry 97 Oxygen Delivery Method 01/29/25 19:00 01/29/25 19:30 01/29/25 19:30 Temperature Pulse Rate 62 Respiratory Rate 12 Blood Pressure 140/75 147/76 H Pulse Oximetry 97 Oxygen Delivery Method 01/29/25 19:58 01/29/25 19:58 01/29/25 20:00 Temperature Pulse Rate 67 67 Respiratory Rate 23 26 H Blood Pressure 158/81 H Pulse Oximetry 98 98 Oxygen Delivery Method Room Air 01/29/25 20:30 01/29/25 20:30 01/29/25 21:00 Temperature Pulse Rate 62 64 Respiratory Rate 9 L 14 Blood Pressure 163/82 H Pulse Oximetry 92 91 Oxygen Delivery Method 01/29/25 21:00 01/29/25 21:31 01/29/25 21:31 Temperature Pulse Rate 75 Respiratory Rate 18 Blood Pressure 160/77 H 167/90 H Pulse Oximetry 94 Oxygen Delivery Method MDM - Chest Pain Lab Data Attestation: I reviewed the patient's lab results. Lab results narrative: White blood cell count 6100, hemoglobin 13.9, platelets adequate. Basic metabolic panel unremarkable. Liver functions and lipase normal. Troponin negative/unmeasurable. 01/29/25 16:14 01/29/25 16:14 Labs: Lab Results 01/29/25 01/29/25 01/30/25 Range/Units 16:14 18:55 02:30 WBC 6.1 (4.5-11.0) X10^3/uL RBC 4.19 L (4.5-5.9) X10^6/uL Hgb 13.9 (13.5-17.5) g/dL Hct 40.4 L (41-53) % MCV 96.4 (80-100) fL MCH 33.1 (26-34) PG MCHC 34.3 (30-36) % RDW 14.1 (11.6-14.8) % Plt Count 155 (150-400) X10^3/uL Neut % (Auto) 65.6 (50-75) % Lymph % (Auto) 17.0 L (25-40) % [place] % (Auto) 13.2 (3-14) % Eos % (Auto) 3.6 (2-4) % Baso % (Auto) 0.6 (0-2) % Neut # (Auto) 4000 (3868-1948) /uL Lymph # (Auto) 1000 L (2018-3345) /uL [place] # (Auto) 800 (0-900) /uL Eos # (Auto) 200 (0-450) /uL Baso # (Auto) 0 (0-100) /uL PT 12.2 (9.4-12.5) SECONDS INR 1.1 (0.9-1.3) APTT 36 206 H* D (25.1-36.5) SECONDS Sodium 136 L (137-145) mmol/L Potassium 4.0 (3.4-5.1) mmol/L Chloride 101 (98-107) mmol/L Carbon Dioxide 27 (22-32) mmol/L BUN 14 (9-20) mg/dL Creatinine 0.87 (0.66-1.25) mg/dL Estimated GFR > 60 (>60) mL/min BUN/Creatinine Ratio 16.1 (6-22) Glucose 112 H (70-99) mg/dL Calcium 9.0 (8.4-10.2) mg/dL Magnesium 1.7 (1.6-2.3) mg/dL Total Bilirubin 0.5 (0.2-1.3) mg/dL AST 29 (17-59) IU/L ALT 28 (<50) IU/L Alkaline Phosphatase 94 (38-126) U/L Total Creatine Kinase 59 (55-170) U/L Troponin I < 0.012 < 0.012 (0.01-0.034) ng/mL NT-Pro-B Natriuret Pep 327 (<450) pg/mL Total Protein 6.8 (6.3-8.2) g/dL Albumin 4.2 (3.5-5.0) g/dL Globulin 2.6 (1.7-4.1) g/dL Albumin/Globulin Ratio 1.6 (1.0-2.8) Lipase 52 (23-300) U/L Imaging Data Chest x-ray: Radiologist's Impression: Close Chest X-Ray (Signed) Carlos Enrique Landers - 01/29/25 Launch?Image [address] [address] XRay Report Signed Patient: Vin Avila MR#: [id number] : 1940 Acct:[id number] Age/Sex: 84 / M Date of Service: 01/29/25 Loc: ED Accession Number: [id number] Procedure: XR chest 1V Ordering Provider: Destiny Worthy D.O. PROCEDURE: XR CHEST 1V INDICATIONS: chest pain TECHNIQUE: One view of the chest was acquired. COMPARISON: [facility], , CHEST 2 VIEW, 09/10/2016, 14:39. FINDINGS: Surgical changes and devices: Midline sternal wires. Mediastinal vascular clips. Atherosclerotic vascular calcification noted in the aortic arch. Hiatal hernia Lungs and pleura: Lungs are clear. No pleural effusions or pneumothorax. Mediastinum: Mediastinal contours appear normal. Heart size is normal. Bones and chest wall: No suspicious bony lesions. Overlying soft tissues appear unremarkable. IMPRESSION: No acute cardiopulmonary abnormality is seen. Large hiatal hernia Approved by: Carlos Enrique Landers M.D. on 01/29/2025 at 15:41 ECG Data Attestation: I personally reviewed and interpreted this ECG as follows: Interpretation: Normal sinus rhythm with rate 71, first-degree AV block with [place] 220. QRS 136, QTC 495. MDM Narrative Medical decision making narrative: 84-year-old male with extensive history of CAD, last coronary interventions 2013 with 4 vessel CABG, last stress test 3 years ago, with right lateral chest discomfort typical of his previous coronary symptoms at rest this morning, took own nitroglycerin old tablets, no change in symptoms, EMS gave aspirin and nitroglycerin, near-complete relief on arrival, given nitroglycerin here with screening EKG unremarkable. Initial troponin negative. We will repeat troponin. Chest x-ray ordered. Chest x-ray no acute changes, see radiology report. Interval troponin also negative. Chest pain-free on topical nitroglycerin. We will contact Cardiology regarding disposition plan. Possible stress testing. 1944, case discussed with cardiology Dr. Robb who agrees with admission here to coordinate chemical stress tomorrow. Patient agreeable. Will contact hospitalist. Patient having more chest pain, repeat EKG on changed. IV morphine. Consider unstable angina. We will reconsult cardiology. Possible transfer. 2014, case discussed with cardiology Dr. Robb who agrees with transfer for unstable angina, can add heparin. Patient has had previous care at [facility], we will query their services. No beds [facility], nor [facility]. DATA PROCESSING SYSTEMS CONSULTANT to query more broadly for cardiac laboratory secretary capable facilities. Patient aware. 2109, case discussed with [facility] cardiology Dr. Glover who can consult, requests additional medications oral amlodipine 2.5 mg, and additional Lipitor 40 mg if he had taken his morning dose. Agrees with heparin and other meds given, can consult, usually through the hospitalist. We will await call back from their hospitalist service. 2199, case discussed with [facility] hospitalist Dr. Saunders who accepts patient for transfer, awaiting bed assignment. 2209, bed available at [facility] now, however ground transportation ALS not available until 299, patient and family aware. 299, EMS ALS transport here for transport, no further chest pain, tansfer as planned on topical nitropaste, heparin, given aspirin prior. Critical Care Time Critical Care Time Critical Care Time: Yes Total Critical Care Time: 35 Attestation: The high probability of a clinically significant, sudden or life threatening deterioration of the [cardiopilmonary] systems required my full and direct attention, intervention and personal management. The aggregate critical care time was [35] minutes. This time is in addition to time spent performing reported procedures but includes the following: [x] Data Review and interpretation [x] Patient assessment and monitoring of vital signs [x] Documentation [x] Medication orders and management Discharge Plan Departure Patient Disposition: Home Clinical Impression: Chest pain, Unstable angina Prescriptions: No Action clotrimazole-betamethasone 1-0.05 % cream 1 applic topical BID Qty: 15 0RF Gemtesa 75 mg tablet 75 mg PO DAILY Qty: 30 12RF atorvastatin 40 mg Tablet 40 mg PO QPM citalopram 40 mg Tablet 20 mg PO DAILY aspirin 81 mg Tablet,Delayed Release (Dr/Ec) 81 mg PO DAILY levothyroxine 25 mcg Tablet 25 mcg PO DAILY flunisolide 25 mcg (0.025 %) [place],Non-Aerosol 1 spray Intranasal BID primidone 50 mg Tablet 50 mg PO BID Rx Instructions: Morning and noon potassium chloride 10 mEq Tablet Extended Release 10 meq PO DAILY Rx Instructions: With food nitroglycerin 0.4 mg Tablet, Sublingual 0.4 mg SUBLINGUAL Q5-15M PRN (Reason: Chest Pain) Rx Instructions: Place 1 tablet by sublingual route at the 1st sign of attack; may repeat every 5 minutes until relief; if pain persists after 3 tablets in 15 min, prompt medical attention is recommended folic acid 0.8 mg Capsule 0.8 mg PO DAILY amitriptyline 10 mg Tablet 20 mg PO BEDTIME furosemide 40 mg Tablet 40 mg PO DAILY primidone 50 mg Tablet 100 mg PO BEDTIME topiramate 25 mg tablet 75 mg PO BID docusate sodium 100 mg Capsule 100 mg PO DAILY acetaminophen 500 mg Capsule 500 mg PO Q6HR PRN (Reason: Pain (Scale Score 1-3)) cholecalciferol (vitamin D3) [Vitamin D3] 25 mcg (1,000 unit) Capsule 25 mcg PO DAILY tamsulosin 0.4 mg capsule 0.4 mg PO DAILY bupropion HCl 100 mg tablet 100 mg PO BID Referrals: Nicole Roman MD [Primary Care Provider] - Stand Alone Forms: Patient Portal/API/Survey
[2025-01-29] MEDS: NITROGLYCERIN OINT 1 INCH/GM OINT...G. TOP (18:56)
[2025-01-29 19:23] LABS: Troponin I < 0.012 ng/mL (0.01-0.034)
--- NOTE | 2025-01-29 20:01 | EKG_ITS ---
[address] [address] Test Date: 2025-01-29 Pat Name: Vin Avila Department: [facility] Room: Gender: Male Scheduling Assistant: : 1940 Requested By: Order Number: [id number] Reading MD: Rai Smith Measurements Intervals [place] Rate: 61 P: -4 NE: 228 QRS: -15 QRSD: 146 T: 2 QT: 490 QTc: 493 Interpretive Statements Sinus rhythm with 1st degree AV block Right bundle branch block Electronically Signed On 02-01-2025 17:38:05 PDT by Rai Smith
[2025-01-29] MEDS: MORPHINE 4 MG/ML INJ IV (20:11)
[2025-01-29] MEDS: ONDANSETRON 4 MG/2 ML INJ IV (20:12)
[2025-01-29] MEDS: HEPARIN 5,000 UNIT/ML VIAL 5500 UNIT IV (20:43)
[2025-01-29] MEDS: HEPARIN DRIP 25,000 UNIT/500 ML IV.SOLN 22.56 UNIT IV (20:46)
[2025-01-29] MEDS: AMLODIPINE 5 MG TABLET 2.5 MG PO (21:28)
[2025-01-29] MEDS: ATORVASTATIN 20 MG TABLET 40 MG PO (21:29)
[2025-01-30] VITALS: BP 187/94; PULSE 64; RESP 11; O2SAT 94
[2025-01-30 00:09] VITALS: BP 173/98; PULSE 64; RESP 12; O2SAT 95
[2025-01-30 00:30] VITALS: BP 187/89; PULSE 62; RESP 13; O2SAT 96
[2025-01-30] MEDS: LACTATED RINGERS 1,000 ML 1000 ML IV (03:00)
[2025-01-30 03:06] LABS: PTT Partial Thromboplastin Tim 206 SECONDS (25.1-36.5)
== END 2025-01-30 03:40 | disposition home or self-care (01) ==
PROVIDERS: Emergency Medicine; Emergency Provider Emergency Medicine; Family Provider Specialist; PCP Family Medicine
DX: I20.0 Unstable angina (principal); R07.9 Chest pain, unspecified; Z86.79 Personal history of other diseases of the circulatory system; I10 Essential (primary) hypertension
CPT/HCPCS: 36415; 71045; 80053; 82550; 83690; 83735; 83880; 84484; 85025; 85610; 85730; 93005; 96365; 96366; 96375; 99284; 99291; J1644; J2270; J2405